=== PATIENT | female | born 1970 | race Caucasian/White ===

== ENCOUNTER 2020-02-17 14:13 | Emergency (ER) | payer OTHER, SELFPAY ==
--- NOTE | 2020-02-17 | CT_ITS ---
EXAMINATION: CT ABDOMEN AND PELVIS WITHOUT CONTRAST CLINICAL INFORMATION: Right flank pain COMPARISON: CT abdomen and pelvis noncontrast 05/20/2011 TECHNIQUE: Multidetector volumetric imaging was performed from the superior aspect of the liver through the pubic symphysis. No oral or intravenous contrast. Sagittal and coronal reformatted images were obtained on the technologist's workstation. This CT examination was performed using dose optimization techniques as appropriate, variously including the following: *Automated exposure control *Adjustment of mA and/or kV according to patient size (this includes techniques or standardized protocols for targeted exams where dose is matched to indication/reason for exam; i.e. extremities or head) *Use of iterative reconstruction technique DLP: 639 mGy-cm FINDINGS: LUNG BASES: The visualized lung bases are unremarkable. LIVER, GALLBLADDER, AND BILIARY TREE: The liver is normal in size, shape, and attenuation. No focal hepatic lesion or biliary ductal dilatation is present. The gallbladder is unremarkable with no evidence of radiopaque gallstones, gallbladder wall thickening, or obvious pericholecystic inflammatory changes. PANCREAS: Unremarkable. SPLEEN: Unremarkable. ADRENAL GLANDS: Unremarkable. KIDNEYS AND URETERS: Kidneys are normal in size and smooth in contour and normal in attenuation. There is no hydronephrosis, hydroureter, or perinephric stranding. No renal or definite ureteral calculi. There is a calcification deep right pelvis adjacent to the distal ureter representing a phlebolith. BLADDER: Unremarkable. GASTROINTESTINAL TRACT: There is no bowel obstruction or inflammatory changes in the bowel or mesentery. No ascites or fluid collection. The appendix is normal. There is moderate stool in the colon. Patient is likely status post prior gastric bypass. ABDOMINAL WALL: No significant hernia is appreciated. LYMPH NODES: No lymphadenopathy. VASCULAR: Unremarkable. PELVIC VISCERA: Unremarkable. OSSEOUS STRUCTURES: No acute bony abnormality. IMPRESSION: 1. No inflammatory changes in abdomen or pelvis. 2. No hydronephrosis, calculi, or perinephric stranding.
[2020-02-17 14:22] VITALS: BP 160/90; PULSE 82; RESP 16; TEMP 37.1; O2SAT 100; BMI 35.3
[2020-02-17 14:43] VITALS: BP 171/94; PULSE 81; TEMP 37; O2SAT 100
--- NOTE | 2020-02-17 15:25 | ED.GENADULT ---
HPI - General Adult General Chief complaint: General Medical Stated complaint: pain back Time Seen by Provider: 02/17/20 15:03 Source: patient Mode of arrival: ambulatory Limitations: no limitations History of Present Illness HPI narrative: patient's history of kidney stone last time she had 1 was 6 years ago no procedure was done been feeling 2 week of right flank pain increases with deep inspiration slight nausea no vomiting no radiation of pain last 3 days pain is getting worse patient denied any hematuria Onset (ago): week(s) (2) Radiation: non-radiation Severity: moderate Severity scale (1-10): 8 Quality: sharp Pain Consistency: intermittent Relieving factors: none Exacerbating factors: other ( deep breath) Associated symptoms: denies other symptoms Treatments prior to arrival: none Related Data Allergies Allergy/AdvReac Type Severity Reaction Status Date / Time Penicillins [PENICILLINS] Allergy Unknown HIVES Unverified 01/26/20 15:03 Penicillin Allergy Unknown Uncoded 12/27/19 00:00 Pt states no food allergies Allergy Unknown Uncoded 12/27/19 00:00 Review of Systems Review of Systems: REVIEW OF SYSTEMS: Pertinent positives and negatives are stated above in the history. GEN: no fevers, chills, fatigue HEENT: no nasal congestion, sore throat, ear pain NEURO: no headache, dizziness, focal weakness PULM: no cough, shortness of breath CV: no chest pain, palpitations, LE edema ABD no nausea, vomiting, diarrhea : no dysuria, urgency, frequency SKIN: no rash ROS otherwise negative x 10 PMFSH Past Medical History Medical History Hypertension Surgical History Gastric bypass status for obesity Social History Social History Smoking Status: Never smoker Use of substances other than those prescribed or required for medical reasons: No Advance Directives: No Advance Directives Information Provided: Yes Physical Exam Vital Signs and I&O and Narrative: Vital Signs and I&O: Vital Signs Temp 98.6 F 02/17/20 14:43 Pulse 81 02/17/20 14:43 Resp 16 02/17/20 14:22 BP 171/94 H 02/17/20 14:43 Pulse Ox 100 02/17/20 14:43 Intake & Output 02/16/20 02/17/20 02/17/20 18:59 06:59 18:59 Weight 79.379 kg Body Mass Index 35.3 Appearance: Alert. Oriented X3. moderate distress + Eyes: Pupils equal, round and reactive to light. ENT: Pharynx normal. Neck: Normal inspection. Neck supple. CVS: Normal heart rate and rhythm. Pulses normal. Respiratory: No respiratory distress. Breath sounds normal. Abdomen: Soft and nontender, right CVA tenderness+ Skin: Skin warm and dry. Normal skin color. Normal skin turgor. Extremities: No lower extremity edema. No lower extremity edema. Neuro: Oriented X 3. No motor deficit. No sensory deficit. Course Course Course Narrative: patient with right flank pain possible stone CT scan did not show any obstructive uropathy final report is pending patient signed out to Dr. Moore for evaluation and discharge Medical Decision Making Lab Data Result diagrams: 02/17/20 16:13 02/17/20 16:13
[2020-02-17] MEDS: ondansetron HCL 4 MG/2 ML VIAL IVPUSH (16:15)
[2020-02-17] MEDS: Ketorolac Tromethamine 30 MG/ML VIAL IVPUSH (16:15)
[2020-02-17] MEDS: 0.9 % Sodium Chloride 1,000 ML 999 ML IVCONT (16:16)
[2020-02-17] MEDS: Morphine Sulfate 4 MG/ML CARTRIDGE IVPUSH (16:16)
[2020-02-17 16:25] LABS: Basophils Absolute Auto 0.1 X10*3/uL (0.0-0.2); Basophils Percent Auto 0.7 % (0-2); Eosinophils Absolute Auto 0.1 X10*3/uL (0.0-0.4); Eosinophils Percent Auto 0.9 % (0-4); Hematocrit 42.3 % (37-47); Hemoglobin 14.1 g/dl (12.0-16.0); Imm Gran Abs Auto 0.01 X10*3/uL (0.00-0.03); Imm Gran Pct Auto 0.1 % (0.0-0.4); Lymphocytes Absolute Auto 1.7 X10*3/uL (1.2-4.9); Lymphocytes Percent Auto 22.8 % (20-40); MANUAL DIFF FLAG NO; Mean Corpuscular HGB Conc 33.3 g/dl (31.0-35.0); Mean Corpuscular Hemoglobin 31.8 pg (27.0-33.0); Mean Corpuscular Volume 95.3 fL (80-98); Mean Platelet Volume 10.3 fL (9.4-12.3); Monocytes Absolute Auto 0.7 X10*3/uL (0.1-1.2); Monocytes Percent Auto 9.3 % (2-11); Neutrophils Percent Auto 66.2 % (45-73); Platelet Count 200 X10*3/uL (160-400); Red Blood Count 4.44 X10*6/uL (4.20-5.50); Red Cell Distribution Width 12.3 % (11.0-16.0); White Blood Count 7.6 X10*3/uL (4.8-10.8)
--- NOTE | 2020-02-17 16:31 | PC.NURSE ---
PT TRIAGED C/O L SIDED FLANK PAIN X 4 DAYS. DENIES ANY URINARY SXS. HX KIDNEY STONES. PT DIFFICULT STICK, 22G PLACED IN L HAND. LABS DRAWN, URINE SPECIMEN OBTAINED AND SENT TO LAB.
--- NOTE | 2020-02-17 16:32 | PC.NURSE ---
AWAITING CT SCAN REPORT.
--- NOTE | 2020-02-17 16:32 | PC.NURSE ---
PT MEDICATED FOR 10/10 FLANK PAIN. A&OX3, SPEAKING IN CLEAR FULL SENTECES. AMBULATING INDEPENDENTLY.
[2020-02-17 16:43] LABS: Glucose Urine UA NEG (NEG); Leukocyte Esterase Urine NEG (NEG); Nitrite Urine NEG (NEG); Specific Gravity - Urine 1.015 (1.005-1.025); Urine Blood TRACE (NEG); Urine Ketones NEG (NEG); Urine Protein NEG (NEG-TRACE)
[2020-02-17 16:46] LABS: Appearance Urine CLEAR; Color Urine YELLOW
[2020-02-17 16:48] LABS: UPreg QC Valid YES; Urine Pregnancy NEGATIVE (NEGATIVE)
[2020-02-17 16:49] LABS: Anion Gap 11 (12-20); Blood Urea Nitrogen 14 mg/dL (9-16); Calcium 8.7 mg/dL (8.4-10.2); Carbon Dioxide 28 mmol/L (22-29); Chloride 103 mmol/L (96-108); Creatinine Clr Calc Pharmacy 97.2; Estimated Glomerular Filt Rate > 60; Glucose Random 96 mg/dL (60-115); Potassium 3.8 mmol/l (3.3-5.1); Sodium 138 mmol/L (135-145)
[2020-02-17 16:53] LABS: Squamous Epithelial Cell Urine TRACE /LPF; WBC Urine 0-2 /HPF (0-4)
== END 2020-02-17 17:34 | disposition home or self-care (01) ==
PROVIDERS: Emergency Provider Internal Medicine; PCP Internal Medicine
DX: M54.5 Low back pain (principal); R11.2 Nausea with vomiting, unspecified
CPT/HCPCS: 36415; 74176; 80048; 81001; 81025; 85025; 96361; 96374; 96375; 99284; J1885; J2270; J2405

== ENCOUNTER → 2020-03-21 12:09 | Outpatient (BNVA) | payer OTHER, SELFPAY | PROVIDERS: PCP Internal Medicine; Referring Provider Internal Medicine; Visit Provider Physician Assistant | DX: Z76.89 Persons encountering health services in other specified circumstances (principal) ==

== ENCOUNTER → 2020-06-20 08:28 | Outpatient (BNVA) | payer OTHER, SELFPAY | PROVIDERS: PCP Internal Medicine; Visit Provider Physician Assistant ==

== ENCOUNTER 2020-06-22 06:57 | Outpatient (REF) | payer OTHER, SELFPAY ==
[2020-06-22 07:39] LABS: MANUAL DIFF FLAG NO
[2020-06-22 07:43] LABS: Basophils Percent Auto 0.7 % (0-2); Eosinophils Absolute Auto 0.1 X10*3/uL (0.0-0.4); Eosinophils Percent Auto 0.8 % (0-4); Hematocrit 46.4 % (37-47); Hemoglobin 15.2 g/dl (12.0-16.0); Imm Gran Abs Auto 0.01 X10*3/uL (0.00-0.03); Imm Gran Pct Auto 0.2 % (0.0-0.4); Lymphocytes Absolute Auto 1.8 X10*3/uL (1.2-4.9); Lymphocytes Percent Auto 30.3 % (20-40); Mean Corpuscular HGB Conc 32.8 g/dl (31.0-35.0); Mean Corpuscular Hemoglobin 31.9 pg (27.0-33.0); Mean Corpuscular Volume 97.3 fL (80-98); Mean Platelet Volume 10.3 fL (9.4-12.3); Monocytes Absolute Auto 0.5 X10*3/uL (0.1-1.2); Monocytes Percent Auto 7.7 % (2-11); Neutrophils Absolute Auto 3.6 X10*3/uL (2.0-8.3); Neutrophils Percent Auto 60.3 % (45-73); Platelet Count 221 X10*3/uL (160-400); Red Blood Count 4.77 X10*6/uL (4.20-5.50); Red Cell Distribution Width 13.8 % (11.0-16.0)
[2020-06-22 07:48] LABS: Estimated Average Glucose 94 mg/dL; Hemoglobin A1c % 4.9 %
[2020-06-22 08:13] LABS: Alanine Aminotransferase 30 U/L (0-31); Albumin Level 4.2 g/dL (3.5-5.0); Alkaline Phosphatase 81 U/L (39-117); Anion Gap 14 (12-20); Aspartate Amino Transferase 39 U/L (5-31); Bilirubin Total 0.5 mg/dL (0.0-1.0); Blood Urea Nitrogen 24 mg/dL (9-16); C Reactive Protein 0.04 mg/dL (< or = 0.50); Calcium 9.1 mg/dL (8.4-10.2); Carbon Dioxide 31 mmol/L (22-29); Chloride 101 mmol/L (96-108); Cholesterol 150 mg/dL; Estimated Glomerular Filt Rate > 60; Glucose Random 85 mg/dL (60-115); HDL Cholesterol 68 mg/dL; LDL Cholesterol Calculated 76 mg/dl; Potassium 4.3 mmol/L (3.3-5.1); Sodium 142 mmol/L (135-145); Total Protein 7.4 g/dL (6.5-8.0); Triglycerides 34 mg/dL
[2020-06-22 08:32] LABS: Ferritin 49 ng/mL (10-250); TSH reflex Free T4 2.15 uIU/mL (0.32-4.0); Vitamin D 25-OH Total 18.3 ng/mL (>30)
[2020-06-22 08:52] LABS: Folate 11.5 ng/mL (> or = 4.0); Vitamin B12 837 pg/mL (200-900)
[2020-06-23 05:57] LABS: Insulin Level Total 8.7 uIU/mL
[2020-06-25 16:47] LABS: Calcium (PTHI) 9.2 mg/dL (8.6-10.4); PTHI 84 pg/mL (14-64)
[2020-06-26 03:47] LABS: Zinc 72 mcg/dL (60-130)
[2020-06-27 10:22] LABS: Vitamin B1 11 nmol/L (8-30)
[2020-06-27 21:06] LABS: Vitamin A 68 mcg/dL (38-98)
== END 2020-06-22 06:58 | disposition home or self-care (01) ==
LOC: HO.LAB 06:57
PROVIDERS: PCP Internal Medicine; Visit Provider Physician Assistant
DX: E66.9 Obesity, unspecified (principal); Z98.84 Bariatric surgery status
CPT/HCPCS: 36415; 80053; 80061; 82306; 82607; 82728; 82746; 83036; 83525; 83970; 84425; 84443; 84590; 84630; 85025; 86140

== ENCOUNTER → 2020-07-12 08:12 | Outpatient (BNVA) | payer OTHER, SELFPAY | PROVIDERS: PCP Internal Medicine; Visit Provider Dietitian, Registered ==

== ENCOUNTER 2020-11-07 09:43 | Outpatient (REF) | payer OTHER, SELFPAY ==
[2020-11-07 11:16] LABS: Vitamin D 25-OH Total 24.2 ng/mL (>30)
== END 2020-11-07 09:44 | disposition home or self-care (01) ==
LOC: HO.LAB 09:43
PROVIDERS: PCP Internal Medicine; Visit Provider Physician Assistant
DX: Z90.3 Acquired absence of stomach [part of] (principal)
CPT/HCPCS: 36415; 82306

== ENCOUNTER → 2021-02-04 14:55 | Outpatient (BNVA) | payer OTHER, SELFPAY | PROVIDERS: PCP Internal Medicine; Visit Provider Physician Assistant Surgical ==

== ENCOUNTER 2025-03-26 01:15 | Inpatient (IN) | payer BC, SELFPAY ==
[2025-03-26] VITALS (11 sets, daily range): BP systolic 107–144; BP diastolic 62–77; PULSE 78–97; RESP 14–21; TEMP 36.1–36.9; O2SAT 94–100; BMI 45.8; BMI 49.2
--- NOTE | ~2025-03-26 | CT_ITS ---
CLINICAL HISTORY: R flank pain ,hx kidney stones CT abdomen and pelvis without contrast Comparison: None provided Findings: The lung bases are clear. Distended gallbladder without radiopaque gallstone. Rest of the abdominopelvic viscera are unremarkable [id number] neighboring fat stranding. No hydronephrosis or urinary tract stone. Nonobstructive small bowel loops located to the left of the left colon. Finding is incidental. Distended fluid-filled appendix measuring up to 9 mm in width with a 10 mm mildly dense appendiceal base likely appendicolith and neighboring [id number] fat stranding. No extraluminal air or abscess. No acute fracture. Spinal degenerative changes. Multilevel ossification of the anterior longitudinal ligament and supraspinous ligaments at lower thoracic level. IMPRESSION: Uncomplicated appendicitis with a likely appendicolith. This document has been electronically signed by: Arminda Lemus MD on 03/26/2025 05:22:32
--- OUTSIDE RECORDS SUMMARY | 2025-03-26 02:10 | XMS_ITS | Clinical Summary ---
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 01/04/20 24 Active ergocalciferol (VITAMIN D-2) 1,250 mcg (50,000 unit) capsule Take 1 capsule (50,000 Units total) by mouth 1 (one) time per week. 12 capsule 3 06/27/19 25 Active albuterol HFA (PROAIR HFA ; PROVENTIL HFA ; VENTOLIN HFA) 90 mcg/actuation inhaler INHALE TWO PUFFS BY MOUTH EVERY 4 HOURS NEEDED FOR WHEEZING AND SHORTNESS OF BREATH (EMERGENCY USE ONLY). 1 each 12/15/19 25 Active hydroCHLOROthi azide (HYDRODIURIL) 50 mg tablet Take 1 tablet (50 mg total) by mouth 1 (one) time each day. 90 tablet 01/12/20 25 Active levothyroxine (SYNTHROID, LEVOTHROID) 50 mcg tablet Take 1 tablet (50 mcg total) by mouth 1 (one) time each day before breakfast. 90 tablet 02/10/20 25 Active pantoprazole (PROTONIX) 20 mg EC tablet TAKE ONE TABLET BY MOUTH EVERY MORNING 90 tablet 1 03/01/20 25 Active losartan (COZAAR) 25 mg tablet Take 1 tablet (25 mg total) by mouth at bedtime. 90 tablet 1 03/20/20 25 Active pantoprazole (PROTONIX) 20 mg EC tablet Take 1 tablet (20 mg total) by mouth 1 (one) time each day in the morning. 90 tablet 11/23/19 25 025 Discontinued losartan (COZAAR) 25 mg tablet Take 1 tablet (25 mg total) by mouth at bedtime. 90 tablet 12/20/19 25 025 Discontinued Active Problems Problem Noted Date Diagnosed Date Morbid obesity (CMS/[facility] V24, [facility] V28) 2023 Increased PTH level 07/15/2022 Overview (04/09/2024): Dr. 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 Overview (04/09/2024): Mild on xray 2012; s/p injections which help a lot Asthma 06/18/2012 Kidney stone on left side 12/22/2011 Female hirsutism 05/20/2007 Polycystic disease, ovaries 05/20/2007 Essential hypertension, benign 02/09/2006 BRCA negative History of gastric bypass Resolved Problems Problem Noted Date Diagnosed Date Resolved Date Vasomotor symptoms due to menopause 04/21/2023 06/22/2024 Encounters Date Type Department Care Team Description 01/16/2025 11:15 AM EDT Office Visit Adult Medicine [address] [address] Eloise Ceron PA Gastroesophageal reflux disease, unspecified whether esophagitis present (Primary Dx); Essential hypertension, benign; Osteopenia, unspecified location; Vitamin D deficiency; Morbid obesity ([facility] V24, [facility] V28); Hypothyroidism due to acquired atrophy of thyroid; History of gastric bypass; Gout, unspecified cause, unspecified chronicity, unspecified site; Mild intermittent asthma without complication from Last 3 Months Immunizations Immunization Administration Dates Next Due COVID-19 (Moderna/Spikevax) 12yo and older 02/25/2023 Influenza Quadravalent, MDCK , 0.5ml, preservative free (Flucelvax) 6mo and older 02/05/2023,02/25/2022,02/07/2021 Influenza trivalent, 0.5mL, preservative free (Fluarix; FluLaval; Fluzone) ages 6mo and older (Afluria) 3 years and older 02/03/2023,01/26/2021,02/08/2020,02/03,02/19/2018,02/11/2017,01/22/2016 ,03/16/2014 Influenza trivalent, with pr eservative (Fluzone; Afluria) 6mo and older 02/15/2015,01/30/2012,02/04/2011 Influenza, Unspecified 02/04/2019,01/22/2016 Pneumococcal conjugate 20 va lent (Prevnar 20, PCV 20) 2mo and older 04/10/2024 Pneumococcal polysaccharide 23 valent (Pneumovax 23) 2yo and older 01/23/2014 Td Tetanus diptheria (Tdvax) 7yo and older 07/31/2021 Tdap Tetanus diptheria acell ular pertussis (Boostrix; Adacel) 7yo and older 04/19/2010 Zoster recombinant (Shingrix ) 19yo and older 04/10/2024,02/05/2024 Surgical History Surgery Date Site/Laterality Comments LASER ABLATION OF THE CERVIX 1992 GASTRIC BYPASS 07/02/2017 Medical History Medical History Date Comments Essential hypertension, benign Polycystic disease, ovaries 05/20/2007 Kidney stone on left side 12/22/2011 Female hirsutism 05/20/2007 Cervical dysplasia 05/20/2007 Asthma 06/18/2012 BRCA negative Hypothyroidism 10/14/2017 History of gastric bypass 06/01/2020 History of COVID-19 07/18/2020 Gout 07/17/2021 Family History Medical History Relation Name Comments Other: unknown health Father Heart attack Maternal Grandmother HTN, ov slick cancer Breast cancer Mother dx'd 31 & 58& 58 second ayaan paola breast cancer at age 58; HTN, anxiety Colon cancer Neg Hx Relation Name Status Comments Father Maternal Grandmother Mother dx'd 31 & 58& 58 Alive Social History Tobacco Use Types Packs/Day Years Used Date Smoking Tobacco: Never Smokeless Tobacco: Never Tobacco Cessation:Counseling Given: Not Answered Alcohol Use Standard Drinks/Week Comments Yes 0 (1 standard drink = 0.6 oz pur e alcohol) Housing Instability Answer Date Recorde d Are you worried that in the next 2 months you may not have stable housing? No 06/20/2024 Food Access & Nutrition Answer Date Rec orded Do you have access to a vari ety of food including fruits and vegetables? Yes 06/20/2024 Access to Healthcare Answer Date Record ed Within the last 3 months, ho w many times did you visit the emergency department for your medical care? 0 06/20/2024 Health Literacy Answer Date Recorded How often do you need to hav e someone help you when you read instructions, pamphlets, or other written material from your doctor or pharmacy? Never 06/20/2024 Caregiver: How often do you need to have someone help you when you read instructions, pamphlets, or other written material from your doctor or pharmacy? Not on file 06/20/2024 Financial Risk Answer Date Recorded How hard is it for you to pa y for the very basics like food, housing, medical care, and air conditioning / heating? Patient declined 06/20/2024 Transportation Answer Date Recorded Has the lack of transportati on kept you from meetings, work, or from getting things needed for daily living? No Has the lack of transportati on kept you from medical appointments or from getting medications? No 06/20/2024 Social Isolation Answer Date Recorded How often do you feel lonely or isolated from th ose around you? Never 06/20/2024 Food Risk Answer Date Recorded Within the past 12 months we worried whether our food would run out before we got money to buy more. Never true 06/20/2024 Within the past 12 months th e food we bought just didn't last and we didn't have money to get more. Never true 06/20/2024 Dependent Care Answer Date Recorded Do you need help finding or paying for care for your loved ones. For example, children's institution attendant or elderly care for an older adult? No 06/20/2024 Education Answer Date Recorded Do you think completing more education or training, like finishing a GED, going to college, or learning a trade, would be helpful for you? N/A 06/20/2024 Employment and Income Answer Date Recor ded During the last four weeks, have you been actively looking for work? No 06/20/2024 Living Situation Answer Date Recorded What is your living situation? Unrecognized valu e 06/20/2024 Comments No Sex and Gender Information Value Date Recorded Sex Assigned at Not on file Legal Sex Female 2:33 PM EST Gender Identity Not on file Sexual Orientation Not on file Obstetrics History Para Term AB IAB SAB Ectopic Multiple Livin g Live Births 0 0 0 0 Last Filed Vital Signs Vital Sign Reading Time Taken Comments Blood Pressure 123/87 01/16/2025 11:12 AM EDT Pulse 72 01/16/2025 11:12 AM EDT Temperature 36.8 C (98.2 F) 01/16/2025 11:12 AM EDT Respiratory Rate 16 01/16/2025 11:12 AM EDT Oxygen Saturation - - Inhaled Oxygen Concentration - - Weight 97.1 kg (214 lb) 01/16/2025 11:12 AM EDT Height 149.9 cm (4' 11 ) 01/16/2025 11:12 AM EDT Body Mass Index 43.22 01/16/2025 11:12 AM EDT Plan of Treatment Upcoming Encounters Date Type Department Care Team (Late st Contact Info) Description 06/08/2025 9:40 AM EST Consult Gastroenterology - [address] [phone] Sil Kaur NP [address] [address] 07/18/2025 8:15 AM EDT Office Visit Adult Medicine [address] [phone] Gretel Rees MD [address] [place] [address] Health Maintenance Due Date Last Done Comments Hepatitis B Vaccines (1 of 3 - 19+ 3-dose series) 1988 RSV Immunization Adult Patients (1 - Risk 50-74 years 1-dose series) 2019 HIV Screening 04/19/2022 Cervical Cancer Screening: Pap Smear 06/21/2023 06/21/2020, 06/21/2020, 09/08/2017 COVID-19 Vaccine ( season) 2025 02/05/2024, 02/25/2023, 11/01/2021, Additional history exists Social Influencers of Health Screening 06/20/2025 06/20/2024 Hypertension/CHF/CAD Annual BMP Blood Test 02/27/2026 02/27/2025, 06/27/2024, 12/28/2023, Additional history exists Breast Cancer Screening 06/10/2026 06/10/19, 10/11/2022, 09/28/2021, Additional history exists Cholesterol Screening (Lipid Panel) 02/27/2030 02/27/2025, 12/28/2023, 12/28/2023 Colorectal Cancer Screening: Colonoscopy 08/06/2030 08/06/2020 DTaP,Tdap,and Td Vaccines (3 - Td or Tdap) 08/01/2031 07/31/2021, 04/19/2010 Hepatitis C Screening Completed 09/10/2022 Influenza Vaccine Discontinued 02/05/2023, , 02/25/2022, Additional history exists Pneumococcal Vaccine: 50+ Years Completed 04/10/2024, 01/23/2014 Zoster Vaccines Completed 04/10/2024, 02/05/2024 Depression Screening Completed 06/20/2024 HIB Vaccines Aged Out No longer eligi ble based on patient's age to complete this topic HPV Vaccines Aged Out No longer eligi ble based on patient's age to complete this topic Hepatitis A Vaccines Aged Out No long er eligible based on patient's age to complete this topic IPV Vaccines Aged Out No longer eligi ble based on patient's age to complete this topic MMR Vaccines Aged Out No longer eligi ble based on patient's age to complete this topic Meningococcal ACWY Vaccine Aged Out N o longer eligible based on patient's age to complete this topic Meningococcal B Vaccine Aged Out No l onger eligible based on patient's age to complete this topic RSV Immunization Patients Under 20 months Aged Out No longer eligible based on patient's age to complete this topic Varicella Vaccines Aged Out No longer eligible based on patient's age to complete this topic Procedures Procedure Name Priority Date/Time Associated Diagnosis Comments CBC WITH AUTO DIFFERENTIAL Routine 02/27/2025 9:02 AM EDT Bariatric surgery status Screening for diabetes mellitus Vitamin D deficiency disease Hypothyroidism Screening for lipoid disorders Routine general medical examination at a health care facility VITAMIN B12 Routine 02/27/2025 9:02 AM EDT Bariatric surgery status Screening for diabetes mellitus Vitamin D deficiency disease Hypothyroidism Screening for lipoid disorders Routine general medical examination at a health care facility HEMOGLOBIN A1C Routine 02/27/2025 9:02 AM EDT Bariatric surgery status Screening for diabetes mellitus Vitamin D deficiency disease Hypothyroidism Screening for lipoid disorders Routine general medical examination at a health care facility INSULIN, TOTAL Routine 02/27/2025 9:02 AM EDT Bariatric surgery status Screening for diabetes mellitus Vitamin D deficiency disease Hypothyroidism Screening for lipoid disorders Routine general medical examination at a health care facility VITAMIN D 25 HYDROXY Routine 02/27/2025 9:02 AM EDT Bariatric surgery status Screening for diabetes mellitus Vitamin D deficiency disease Hypothyroidism Screening for lipoid disorders Routine general medical examination at a health care facility THYROID STIMULATING HORMONE Routine 02/27/2025 9:02 AM EDT Bariatric surgery status Screening for diabetes mellitus Vitamin D deficiency disease Hypothyroidism Screening for lipoid disorders Routine general medical examination at a health care facility COMPREHENSIVE METABOLIC PANEL Routine 02/27/2025 9:02 AM EDT Bariatric surgery status Screening for diabetes mellitus Vitamin D deficiency disease Hypothyroidism Screening for lipoid disorders Routine general medical examination at a health care facility CBC AND DIFFERENTIAL Routine 02/27/2025 9:02 AM EDT Bariatric surgery status Screening for diabetes mellitus Vitamin D deficiency disease Hypothyroidism Screening for lipoid disorders Routine general medical examination at a health care facility LIPID PANEL WITH REFLEX TO DIRECT LDL Routine 02/27/2025 9:02 AM EDT Bariatric surgery status Screening for diabetes mellitus Vitamin D deficiency disease Hypothyroidism Screening for lipoid disorders Routine general medical examination at a health care facility MG MAMMO DIGITAL SCREENING W JOSE BILAT Routine 06/10/2024 4:05 PM EST Encounter for screening mammogram for breast cancer HEPATITIS C SCREENING Routine 09/10/2022 COLONOSCOPY Routine 08/06/2020 PAP SMEAR Routine 06/21/2020 from Last 3 Months or Most Recently Relevant to Health Maintenance Results * Lipid panel with reflex to direct LDL (02/27/2025 9:02 AM EDT) Cholesterol 167 0 - 200 mg/dL LAB CHEMISTRY METHOD 02/27/2025 11:08 AM [facility] Triglycerides 63 0 - 150 mg/dL LAB CHEMISTRY METHOD 02/27/2025 11:08 AM [facility] HDL 73 >=40 mg/dL LAB CHEMISTRY METHOD 02/27/2025 11:08 AM [facility] LDL Calculated 81 0 - 100 mg/dL LAB CHEMISTRY METHOD 02/27/2025 11:08 AM [facility] Comment:Estimated LDL Calcul ated using equation: Total cholesterol - HDL cholesterol - (Triglycerides/5) VLDL Cholesterol Chuy 12.6 mg/dL LAB CHEMISTRY METHOD 02/27/2025 11:08 AM [facility] Non HDL Chol. (LDL+VLDL) 94 <145 mg/dL LAB CHEMISTRY METHOD 02/27/2025 11:08 AM [facility] Chol/HDL Ratio 2.3 0.0 - 4.4 LAB CHEMISTRY METHOD 02/27/2025 11:08 AM EDT [facility] Blood Venous blood specimen / Unknown Venipuncture / Unknown 02/27/2025 9:02 AM EDT 02/27/2025 9:58 AM EDT us Aaliyah CHATMAN LAB BLOOD ORDERABLES Final Resul t [facility] [address] [place] [address], * (ABNORMAL) CBC auto differential (02/27/2025 9:02 AM EDT) WBC 10.0 4.8 - 10.8 K/mcL LAB HEMETOLOGY METHOD 02/27/2025 10:41 AM T [facility] RBC 4.60 3.80 - 4.80 M/mcL LAB HEMETOLOGY METHOD 02/27/2025 10:41 AM EDT [facility] Hemoglobin 13.9 11.5 - 16.0 g/dL LAB HEMETOLOGY METHOD 02/27/2025 10:41 AM T [facility] Hematocrit 42.3 35.0 - 47.0 % LAB HEMETOLOGY METHOD 02/27/2025 10:41 AM [facility] MCV 92.0 79.0 - 98.0 FL LAB HEMETOLOGY METHOD 02/27/2025 10:41 AM EDT [facility] MCH 30.2 27.0 - 32.0 pcg LAB HEMETOLOGY METHOD 02/27/2025 10:41 AM T [facility] MCHC 32.9 32.0 - 37.0 g/dL LAB HEMETOLOGY METHOD 02/27/2025 10:41 AM T [facility] RDW 14.0 11.0 - 15.0 % LAB HEMETOLOGY METHOD 02/27/2025 10:41 AM [facility] Platelets 283 130 - 400 K/mcL LAB HEMETOLOGY METHOD 02/27/2025 10:41 AM [facility] MPV 10.7 7.0 - 11.0 FL LAB HEMETOLOGY METHOD 02/27/2025 10:41 AM [facility] NRBC 0.0 <1.0 % LAB HEMETOLOGY METHOD 02/27/2025 10:41 AM [facility] NRBC Absolute 0.00 <0.10 K/mcL LAB HEMETOLOGY METHOD 02/27/2025 10:41 AM [facility] Neutrophils Relative 71.5 % LAB HEMETOLOGY METHOD 02/27/2025 10:41 AM [facility] Lymphocytes Relative 18.9 % LAB HEMETOLOGY METHOD 02/27/2025 10:41 AM [facility] Monocytes Relative 8.3 % LAB HEMETOLOGY METHOD 02/27/2025 10:41 AM [facility] Eosinophils Relative 0.5 % LAB HEMETOLOGY METHOD 02/27/2025 10:41 AM [facility] Basophils Relative 0.4 % LAB HEMETOLOGY METHOD 02/27/2025 10:41 AM [facility] Immature Granulocytes Relative 0.4 % LAB HEMETOLOGY METHOD 02/27/2025 10:41 AM [facility] Neutrophils Absolute 7.11(H) 1.50 - 7.00 K/mcL LAB HEMETOLOGY METHOD 02/27/2025 10:41 AM [facility] Lymphocytes Absolute 1.88 1.00 - 5.00 K/mcL LAB HEMETOLOGY METHOD 02/27/2025 10:41 AM [facility] Monocytes Absolute 0.83 0.20 - 1.00 K/mcL LAB HEMETOLOGY METHOD 02/27/2025 10:41 AM EDT [facility] Eosinophils Absolute 0.05 0.00 - 0.50 K/mcL LAB HEMETOLOGY METHOD 02/27/2025 10:41 AM EDT [facility] Basophils Absolute 0.04 0.00 - 0.20 K/[facility] LAB HEMETOLOGY METHOD 02/27/2025 10:41 AM EDT [facility] Immature Granulocytes Absolute 0.04(H) 0.00 - 0.03 K/[facility] LAB HEMETOLOGY METHOD 02/27/2025 10:41 AM EDT [facility] Blood Venous blood specimen / Unknown Venipuncture / Unknown 02/27/2025 9:02 AM EDT 02/27/2025 9:59 AM EDT [employer] LAB BLOOD ORDERABLES Final Resul t Performing Organization Address City/[facility]/ZIP Co de Phone Number [facility] [address] [place] [address], [place] [phone] * Insulin, total (02/27/2025 9:02 AM EDT) Insulin 17.2 3.0 - 25.0 mcIU/mL LAB CHEMISTRY METHOD 02/27/2025 9:02 PM EDT [facility] Blood Venous blood specimen / Unknown Venipuncture / Unknown 02/27/2025 9:02 AM EDT 02/27/2025 9:58 AM EDT Narrative [facility] - 02/27/2025 9:02 PM EDT Insulin reference range based on fasting status. Insulin values vary in non-fasting individuals. [employer] LAB BLOOD ORDERABLES Final Resul t Performing Organization Address City/[facility]/ZIP Co de Phone Number [facility] [address] [place] [address], [place] [phone] * Vitamin D 25 hydroxy (02/27/2025 9:02 AM EDT) Vit D, 25-Hydroxy 44.6 30.0 - 80.0 ng/mL LAB CHEMISTRY METHOD 02/27/2025 12:43 PM EDT [facility] Blood Venous blood specimen / Unknown Venipuncture / Unknown 02/27/2025 9:02 AM EDT 02/27/2025 9:58 AM EDT Aaliyah Narvaez [place] LAB BLOOD ORDERABLES Final Resul t [facility] [address] [place] [address], [place] [phone] * Thyroid stimulating hormone (02/27/2025 9:02 AM EDT) TSH 2.22 0.40 - 4.00 mcIU/mL LAB CHEMISTRY METHOD 02/27/2025 9:02 PM EDT [facility] Blood Venous blood specimen / Unknown Venipuncture / Unknown 02/27/2025 9:02 AM EDT 02/27/2025 9:58 AM EDT Aaliyah CHATMAN LAB BLOOD ORDERABLES Final Resul t [facility] [address] [place] [address], [place] [phone] * Hemoglobin A1c (02/27/2025 9:02 AM EDT) Hemoglobin A1C 5.4 <6.5 % LAB CHEMISTRY METHOD 02/27/2025 11:53 AM EDT [facility] Mean Bld Glu Estim. 108 mg/dL LAB CHEMISTRY METHOD 02/27/2025 11:53 AM EDT [facility] Blood Venous blood specimen / Unknown Venipuncture / Unknown 02/27/2025 9:02 AM EDT 02/27/2025 9:59 AM EDT us Aaliyah CHATMAN LAB BLOOD ORDERABLES Final Resul t Performing Organization Address City/[facility]/ZIP Co de Phone Number [facility] [address] [place] [address], [place] [phone] * Vitamin B12 (02/27/2025 9:02 AM EDT) [facility] Vitamin B-12 469 250 - 900 pcg/mL LAB CHEMISTRY METHOD 02/27/2025 11:08 AM EDT [facility] Blood Venous blood specimen / Unknown Venipuncture / Unknown 02/27/2025 9:02 AM EDT 02/27/2025 9:58 AM EDT us Aaliyah CHATMAN LAB BLOOD ORDERABLES Final Resul t Performing Organization Address City/[facility]/ZIP Co de Phone Number [facility] [address] [place] [address], [place] [phone] * Comprehensive metabolic panel (02/27/2025 9:02 AM EDT) [facility] Sodium 136 133 - 145 mmol/L LAB CHEMISTRY METHOD 02/27/2025 11:08 AM T [facility] Potassium 3.7 3.5 - 5.5 mmol/L LAB CHEMISTRY METHOD 02/27/2025 11:08 AM T [facility] Chloride 99 96 - 110 mmol/L LAB CHEMISTRY METHOD 02/27/2025 11:08 AM [facility] CO2 30 21 - 32 mmol/L LAB CHEMISTRY METHOD 02/27/2025 11:08 AM T [facility] Anion Gap 7 3 - 11 LAB CHEMISTRY METHOD 02/27/2025 11:08 AM [facility] Glucose 84 70 - 100 mg/dL LAB CHEMISTRY METHOD 02/27/2025 11:08 AM [facility] BUN 17 5 - 25 mg/dL LAB CHEMISTRY METHOD 02/27/2025 11:08 AM [facility] Creatinine 0.68 0.50 - 1.10 mg/dL LAB CHEMISTRY METHOD 02/27/2025 11:08 AM [facility] eGFR 103 >=60 mL/min/1. 73m2 LAB CHEMISTRY METHOD 02/27/2025 11:08 AM [facility] Comment:Calculation based on the Chronic Kidney Disease Epidemiology Collaboration (CKD-EPI) equation refit without adjustment for race. BUN/Creatinine Ratio 25.0 LAB CHEMISTRY METHOD 02/27/2025 11:08 AM [facility] Calcium 9.3 8.5 - 10.5 mg/dL LAB CHEMISTRY METHOD 02/27/2025 11:08 AM [facility] AST (SGOT) 42 10 - 42 unit/L LAB CHEMISTRY METHOD 02/27/2025 11:08 AM [facility] ALT (SGPT) 45 10 - 60 unit/L LAB CHEMISTRY METHOD 02/27/2025 11:08 AM [facility] Alkaline Phosphatase 107 42 - 121 unit/L LAB CHEMISTRY METHOD 02/27/2025 11:08 AM [facility] Total Protein 7.2 6.0 - 8.0 g/dL LAB CHEMISTRY METHOD 02/27/2025 11:08 AM [facility] Albumin 3.7 3.2 - 5.0 g/dL LAB CHEMISTRY METHOD 02/27/2025 11:08 AM [facility] Total Bilirubin 0.3 0.0 - 1.4 mg/dL LAB CHEMISTRY METHOD 02/27/2025 11:08 AM [facility] Blood Venous blood specimen / Unknown Venipuncture / Unknown 02/27/2025 9:02 AM EDT 02/27/2025 9:58 AM EDT us Aaliyah CHATMAN LAB BLOOD ORDERABLES Final Resul t [facility] ([facility]) [facility] [address] [place] [address], * MG Mammo Digital Screening w Jose bilat (06/10/2024 4:05 PM EST) Anatomical Region Laterality Modality Breast Bilateral Mammography 06/11/2024 3:13 PM EST Impressions 06/11/2024 3:15 PM EST No mammographic evidence for malignancy. BI-RADS CATEGORY: 1 - NEGATIVE RECOMMENDATION: Screening bilateral mammogram is recommended in 1 year. Mammo Location: [facility], [address] [place] [address], [id number], . -------- FINAL REPORT -------- Dictated By: Alison Tidwell Dictated Date: 06/11/2024 15:13 ET Assigned Physician: Alison Tidwell Reviewed and Electronically Signed By: Alison Tidwell Signed Date: 06/11/2024 15:15 ET Workstation ID: [id number] Transcribed By: Self Edit Transcribed Date: 06/11/2024 15:13 ET Narrative 06/11/2024 3:15 PM EST Bilateral screening mammogram. CLINICAL: 54 years old, Female, routine annual exam. COMPARISON: Prior mammograms, latest from 10/11/2022. TECHNIQUE: Bilateral MLO and CC views were obtained digitally with 3-D mammogram (digital breast tomosynthesis). Computer-aided detection was utilized in evaluation of this exam (CAD). FINDINGS: There is no evidence of suspicious mass or architectural distortion. No worrisome calcifications are evident. There has been no significant change from prior exam(s). BREAST DENSITY: B - There are scattered areas of fibroglandular density. Procedure Note Alison Tidwell MD - 06/11/2024 Bilateral screening mammogram. CLINICAL: 54 years old, Female, routine annual exam. COMPARISON: Prior mammograms, latest from 10/11/2022. TECHNIQUE: Bilateral MLO and CC views were obtained digitally with 3-Dmammogram (digital breast tomosynthesis). Computer-aided detection wasutilized in evaluation of this exam (CAD). FINDINGS: There is no evidence of suspicious mass or architectural distortion. Noworrisome calcifications are evident. There has been no significantchange from prior exam(s). BREAST DENSITY: B - There are scattered areas of fibroglandular density. IMPRESSION: No mammographic evidence for malignancy. BI-RADS CATEGORY: 1 - NEGATIVE RECOMMENDATION: Screening bilateral mammogram is recommended in 1 year. Mammo Location: [facility], [address] [place] [address], [id number], . -------- FINAL REPORT -------- Dictated By: Alison Tidwell Dictated Date: 06/11/2024 15:13 ET Assigned Physician: Alison Tidwell Reviewed and Electronically Signed By: Alison Tidwell Signed Date: 06/11/2024 15:15 ET Workstation ID: [id number] Transcribed By: Self Edit Transcribed Date: 06/11/2024 15:13 ET Gretel Rees MD IMG BI PROCEDURES Final Result * Hepatitis C Screening (09/10/2022) Hepatitis C Screening Abstracted [facility] Provider HEALTH MAINTENANCE Final Result * Colonoscopy (08/06/2020) Colonoscopy Abstracted. No Interpretation Anatomical Region Laterality Modality Other Historical Provider MD HEALTH MAINTENANCE Final Result * Pap smear (06/21/2020) 06/21/2020 Narrative HISTORICAL TESTING LAB RESULTING AGENCY - 06/27/2020 3:20 PM EST [id number] THINPREP PAP, IMAGED: NEGATIVE FOR SQUAMOUS INTRAEPITHELIAL LESION AND MALIGNANCY . CLUE CELLS ARE PRESENT. ABUNDANT PARTIALLY OBSCURING ACUTE INFLAMMATORY CELLS ARE PRESENT. TATYANA CUNNINGHAM , CT(ASCP) (CASE ELECTRONICALLY SIGNED 06 27 2020) ADEQUACY: SATISFACTORY ENDOCERVICAL/TRANSFORMATION ZONE COMPONENT ABSENT. SOURCE: THINPREP PAP HPV IF ASCUS, CERVICAL, IMAGED CLINICAL INFORMATION: HPV IF DIAGNOSIS OF ASCUS. MENOPAUSE. PAP HX NEG. NO LMP RECORDED, PT IS NOT CURRENTLY HAVING PERIODS (REASON: PERIMENOPAUSAL-UNCERTAIN DATE). 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
--- OUTSIDE RECORDS SUMMARY | 2025-03-26 02:10 | XMS_ITS | Data Portability ---
Author Organization [facility] [address] Address [address] [place] [address] Assessment No assessment recorded. Plan of Treatment Reminders Order Date Submit Date Provider Last Modified By Organization Details Last Modified Time Details Appointments None recorded. Lab rapid strep group A, throat 2022 023 [email or web address] [facility], [address] [place] [address], [phone], 11:09:14 Referral None recorded. Procedures None recorded. Surgeries None recorded. Imaging None recorded. Medication Orders fluticasone propionate 50 mcg/actuati on nasal spray,suspe nsion 2022 023 [facility], [address] [place], [address], 3 11:09:16 Zithromax Z-[place] 250 mg tablet 2022 023 [facility], [address] [place], [address], 3 11:09:16 Patient TargetsNo targets recorded. Patient Instructions Encounter Date Encounter Id Patient Instructions Last Modified By Organization Details Last Modified Time 08/29/2022 [id number] ear infection (otitis media): care instructions [email or web address] Not available 08/29/2022 11:09:26 Reason for Referral None Reported. Results Created Date Observation Date Name Description Value Unit Range Abnormal Flag Note LastModifiedBy Organization Detail LastModifiedTime 08/30/1908/29/2022 rapid strep group A, throa t Unknown Analyte Normal = Negati ve Not Available [address] [place], [address], 08/29/2022 10:44:22 08/30/19 23 08/29/2022 rapid strep group A, throa t Unknown Analyte negati ve Not Available [address] [place], [address], 08/29/2022 10:44:22 Result Notes None recorded. Problems Name Problem SNOMED Code Status Onset Date Resolution Date Notes Provider Name and Address Organization Details Recorded Time Asthma 382349506 Active 2022 TEDDY WOLFF null, PA - [facility] 10:42:21 Hypertensive disorder 24915519 Active 2022 TEDDY WOLFF null, PA - [facility] 10:42:27 Hypothyroidism 66569358 Active 2022 TEDDY WOLFF null, PA - [facility] 10:42:37 Gastroesophage al reflux disease 210234749 Active 2022 TEDDY WOLFF null, PA - [facility] 10:42:45 Problem Notes None recorded. Procedures Surgical History Date Name Laterality Status Provider Name and Address Organization Details Recorded Time procedure on cervix completed TEDDYKENNY CEDILLOEY PA - [facility] 08/29/2022 10:43:19 Gastric bypass for obesity completed TEDDY WOLFF PA - [facility] 08/29/2022 10:43:27 Imaging Results None recorded. Procedure Notes None recorded. Medical Equipment None Reported. Allergies Allergen ID Allergen Name Allergen Category Reaction Reaction Severity Criticality Documentation Date Start Date Code Code System Note Provider Name and Address Organization Details Recorded Time 680731 Product containin g penicilli n (product) medicatio n hives Not available Not available 08/29/2022 34159 8001 SNOMED TEDDY WOLFF null, PA - [facility] 10:41:06 Medications Name Sig Start Date Stop Date Status Note LastModified by Organization Details LastModified Time tizanidine 2 mg tablet TAKE ONE TABLET BY MOUTH EVERY 6 HOURS NEEDED 08/29 completed Not Available Not Available Not Available clindamycin HCl 300 mg capsule TAKE ONE CAPSULE BY MOUTH TWICE A DAY FOR 7 DAYS 08/29 completed Not Available Not Available Not Available hydrochloro thiazide 50 mg tablet TAKE 1 TABLET BY MOUTH DAILY. active Not Available Not Available No t Available Zithromax Z-[place] 250 mg tablet TAKE 2 TABLETS (500 MG) BY ORAL ROUTE ONCE DAILY FOR 1 DAY THEN 1 TABLET (250 MG) BY ORAL ROUTE ONCE DAILY FOR 4 DAYS 2022 active Not Available Not Available Not Avai lable pantoprazol e 20 mg tablet,luis yed release TAKE ONE TABLET BY MOUTH EVERY MORNING active Not Available Not Available No t Available levothyroxi ne 50 mcg tablet TAKE ONE TABLET BY MOUTH EVERY MORNING BEFORE BREAKFAST ) active Not Available Not Available No t Available pantoprazol e 40 mg tablet,luis yed release TAKE ONE TABLET BY MOUTH EVERY DAY 08/29 completed Not Available Not Available Not Available losartan 25 mg tablet TAKE ONE TABLET BY MOUTH EVERY DAY active Not Available Not Available No t Available ibuprofen 600 mg tablet TAKE ONE TABLET BY MOUTH EVERY 6 HOURS NEEDED FOR PAIN active Not Available Not Available No t Available albuterol sulfate HFA 90 mcg/actuati on aerosol inhaler INHALE TWO PUFFS BY MOUTH EVERY 4 HOURS NEEDED FOR WHEEZING OR SHORTNESS OF BREATH EMERGENCY USE ONLY). active Not Available Not Available No t Available Vitamin D2 1,250 mcg (50,000 unit) capsule TAKE ONE CAPSULE BY MOUTH ONCE A WEEK. active Not Available Not Available No t Available colchicine 0.6 mg tablet TAKE ONE TABLET BY MOUTH TWICE A DAY 08/29 completed Not Available Not Available Not Available fluticasone propionate 50 mcg/actuati on nasal spray,suspe nsion Idanha 1 spray every day by intranasa l route. 2022 active Not Available Not Available Not Avai lable chlorhexidi ne gluconate 0.12 % mouthwash RINSE MOUTH WITH 15ML (1 CAPFUL) FOR 30 SECONDS IN THE IN THE MORNING AND IN THE EVENING AFTER TOOTHBRUS FLOWER. EXPECTORA TE AFTER RINSING. DO 08/29 completed Not Available Not Available Not Available Vitamin B12 active Not Available Not A vailable Not Available Vitals Date Recorded Body height Body mass index (BMI) Body weight Pain severity - 0-10 verbal numeric rating [Score] - Reported Respiratory rate Oxygen saturation Oxygen saturation in Arterial blood by Pulse oximetry Heart rate Body temperature Systolic And Diastolic Provider Name and Address Organization Details Last Updated DateTime 149.86 cm 41.8 kg/m2 95975.6 2 g 6 18 /min 100 % 100 % 70 /min 98.1 [degF] 114/78 mm[Hg] TEDDY WOLFF PA - [facility] 10:45:07 Social History Question Answer Notes LastModified by Poup Details LastModified Time Tobacco Smoking Status Former Smoker TEDDY hilton PA - [facility] 08/29/2022 10:44:17 When Did You Quit Smoking? 16+yearssinc elastcigaret te Information not available 08/29/2022 Have You Recently Traveled Abroad? No Information not available 08/29/2022 Sex: Unknown Functional Status Question Answer Note LastModified by Poup Details LastModified Time Do you use any illicit or recreational drugs? No Information not available 08/29/2022 Do you or have you ever used any other forms of tobacco or nicotine? No [email or web address] Information not available 08/29/2022 What is your level of alcohol consumption? Occasional [email or web address] Information not available 08/29/2022 Mental Status None recorded. Family History Relationship Description Onset Age of this Age Resolved Age Notes LastModified by Organization Details LastModified Time Father No current problems or disability [email or web address] Not available 08/29 10:43:46 Mother No current problems or disability [email or web address] Not available 08/29 10:43:46 Medical History No medical history recorded. Gynecological HistoryNo gynecological history recorded. Obstetrics History GPAL:G 0 P 0 0 0 0 Past Encounters Encounter ID Performer Location Encounter Start Date Encounter Closed Date Diagnosis/Indication Diagnosis SNOMED-CT Code Diagnosis ICD10 Code Diagnosis IMO Codes Diagnosis Note [id number] [facility] [place] [address] 07/27/2020 08:40:26 07/27/2020 09:31:06 [id number] [place] [address] [place] [address] 08/29/2022 09:29:49 08/29/2022 11:17:47 Acute left otitis media 469847413 H66.92 Given Hx and Sx and PE findings will Rx Antibiotic s and nasal spray Take antibiotic with food. Eat a yogurt daily or take a probiotic while taking the antibiotic . Recommend humidified airrest, fluidstyle nol/ibu prnNo swimming x 1 week Patient advised to follow up as needed for worsening symptoms or no improvemen t. Discussed concerning red flags with patient and reasons to follow up in the Emergency Department urgently. Health Concerns Section Related Observation LastModified by Organization Detai ls LastModified Time None Recorded Concern Status LastModified by Organization Details LastModified Time None Recorded Advance Directives Directive None Recorded Payers Insurance Date Sequence Insurance Name Policy Number Policy Duong Covered Member ID Duong Member ID Guarantor Name 08/29/[address] [place] [address] [id number] Soniya Nevarez [id number] Soniya Nevarez Notes Date Note Type Note Provider Name and Address Organization Details Recorded Time 08/29/2022 text/html ROS as noted in the HPI 52 yo female c/o Sore throat, left tonsil pain, left ear pain started yesterday No feverNo chillsNo coughNo difficulty breathing or respiratory distressNo wheezeNo CPNo congestionNo Abdominal painNo nauseaNo vomitingNp diarrheaNo myalgiaNo fatigueNo rashNo HANo dizzinessNo recent travelNo known sick contacts Steve Portillo DO [address] [place], [address], [place] - [facility] 08/29/2022 11:09:43 OBGyn Episode No OBEpisode recorded.
--- OUTSIDE RECORDS SUMMARY | 2025-03-26 02:10 | XMS_ITS | Patient Health Record ---
Author Organization [facility] [address] Address [address] [place] [address] Care Team Providers Care Fruit Trimmer Name Role Phone Juan MiguelTasneem wagner Primary Care Provider [phone] Aaliyah Narvaez Unavailable [phone] Allergies Allergen (clinical drug ingredient) Drug/Non Drug Allergy documented on EMR Reaction Allergy Type Onset Date Status Penicillin hives Drug Allergy Active Results Component Value Reference Range Flag Notes VITAMIN D 25 HYDROXY Reviewed date:02/27/2025 12:54:14 PM Interpretation: Performing Lab: Notes/Report: Vit D, 25-Hydroxy 44.6 30.0-80.0 ng/mL HEMOGLOBIN A1C Reviewed date:02/27/2025 12:43:00 PM Interpretation: Performing Lab: Notes/Report: Hemoglobin A1C 5.4 <6.5 % Mean Bld Glu Estim. 108 LIPID PANEL WITH REFLEX TO D IRECT LDL Reviewed date:02/27/2025 12:44:49 PM Interpretation: Performing Lab: Notes/Report: Cholesterol 167 0-200 mg/dL Triglycerides 63 0-150 mg/dL HDL 73 >=40 mg/dL LDL Calculated 81 0-100 mg/dL Estimated LDL Calculated using equation: Total cholesterol - HDL cholesterol - (Triglycerides/5) VLDL Cholesterol Chuy 12.6 Non HDL Chol. (LDL+VLDL) 94 <145 mg/dL Chol/HDL Ratio 2.3 0.0-4.4 COMPREHENSIVE METABOLIC PANE L Reviewed date:02/27/2025 12:45:35 PM Interpretation: Performing Lab: Notes/Report: Sodium 136 133-145 mmol/L Potassium 3.7 3.5-5.5 mmol/L Chloride 99 96-110 mmol/L CO2 30 21-32 mmol/L Anion Gap 7 3-11 Glucose 84 70-100 mg/dL BUN 17 5-25 mg/dL Creatinine 0.68 0.50-1.10 mg/dL eGFR 103 >=60 mL/min/1.73m2 Calcul ation based on the Chronic Kidney Disease Epidemiology Collaboration (CKD-EPI) equation refit without adjustment for race. BUN/Creatinine Ratio 25.0 Calcium 9.3 8.5-10.5 mg/dL AST (SGOT) 42 10-42 unit/L ALT (SGPT) 45 10-60 unit/L Alkaline Phosphatase 107 42-121 unit/L Total Protein 7.2 6.0-8.0 g/dL Albumin 3.7 3.2-5.0 g/dL Total Bilirubin 0.3 0.0-1.4 mg/dL VITAMIN B12 Reviewed date:02/27/2025 12:45:06 PM Interpretation: Performing Lab: Notes/Report: Vitamin B-12 469 250-900 pcg/mL THYROID STIMULATING HORMONE Reviewed date:02/28/2025 07:59:40 AM Interpretation: Performing Lab: Notes/Report: TSH 2.22 0.40-4.00 mcIU/mL INSULIN, TOTAL Reviewed date:02/28/2025 07:59:49 AM Interpretation: Performing Lab: Notes/Report: Insulin reference range based on fasting status. ?Insulin values vary in non- fasting individuals. Insulin 17.2 3.0-25.0 mcIU/mL CBC WITH AUTO DIFFERENTIAL Reviewed date:02/27/2025 12:46:51 PM Interpretation: Performing Lab: Notes/Report: WBC 10.0 4.8-10.8 K/mcL RBC 4.60 3.80-4.80 M/mcL Hemoglobin 13.9 11.5-16.0 g/dL Hematocrit 42.3 35.0-47.0 % MCV 92.0 79.0-98.0 FL MCH 30.2 27.0-32.0 pcg MCHC 32.9 32.0-37.0 g/dL RDW 14.0 11.0-15.0 % Platelets 283 130-400 K/mcL MPV 10.7 7.0-11.0 FL NRBC 0.0 <1.0 % NRBC Absolute 0.00 <0.10 K/mcL Neutrophils Relative 71.5 Lymphocytes Relative 18.9 Monocytes Relative 8.3 Eosinophils Relative 0.5 Basophils Relative 0.4 Immature Granulocytes Relative 0.4 Neutrophils Absolute 7.11 1.50-7.00 K/mcL H Lymphocytes Absolute 1.88 1.00-5.00 K/mcL Monocytes Absolute 0.83 0.20-1.00 K/mcL Eosinophils Absolute 0.05 0.00-0.50 K/mcL Basophils Absolute 0.04 0.00-0.20 K/mcL Immature Granulocytes Absolute 0.04 0.00-0.03 K/mcL H Reason For Referral No Information Medications Medication SIG (Take, Route, Frequency, Duration) Notes Start Date End Date Status Zepbound 2.5 MG/0.5ML Soluti on Auto-injector 0.5 ML Subcutaneous once weekly; Duration: 30 days 02/27/2025 Active Vitamin D (Ergocalciferol) 1.25 MG (26979 UT) Capsule Oral; Duration: 56 Days Active Losartan Potassium 25 MG Tablet TAKE ONE TABLET BY MOUTH DAILY AT BEDTIME Oral; Duration: 30 Days Active Pantoprazole Sodium 20 MG Tablet Delayed Release TAKE ONE TABLET BY MOUTH EVERY MORNING Oral; Duration: 90 Days Active Albuterol Sulfate HFA 108 (9 0 Base) MCG/ACT Aerosol Solution INHALE TWO PUFFS BY MOUTH EVERY 4 HOURS NEEDED FOR WHEEZING OR FOR SHORTNESS OF BREATH Inhalation; Duration: 16 Days Active Levothyroxine Sodium 50 MCG Tablet TAKE ONE TABLET BY MOUTH EVERY DAY BEFORE BREAKFAST Oral; Duration: 30 Days Active hydroCHLOROthiazide 50 MG Tablet TAKE ONE TABLET BY MOUTH EVERY DAY Oral; Duration: 60 Days Active Social History Social History Drug/Alcohol: Social Info Question Answer Notes AUDIT-C (Standard) Did you have a drink containing alcohol in the past year? Yes How often did you have a drink containing alcohol in the past year? Monthly or less (1 point) How many drinks did you have on a typical day when you were drinking in the past year? 1 or 2 drinks (0 point) How often did you have six or more drinks on one occasion in the past year? Never (0 point) Points 1 Interpretation Negative Tobacco Use: Social Info Question Answer Notes Tobacco use other than smoking: Are you an other tobac co user? No Problems Problem Type SNOMED Code ICD Code Onset Dates Problem Status W/U Status Risk Notes Problem Morbid obesity (034427636) Morbid obesity (E66.01) Active confirmed Problem Vitamin D deficiency (47300625) Vitamin D deficiency (E55.9) Active confirmed Problem Body mass index 40+ - morbidly obese (582009928) BMI 40.0-44.9, adult (Z68.41) Active confirmed Problem Hypothyroidism (90924489) Hypothyroidism (acquired) (E03.9) Active confirmed Problem Asthma (066118874) Asthma (J45.909) Active conf irmed Problem History of gastric bypass (270485717) History of gastric bypass (Z98.84) Active confirmed Problem Gastroesophageal reflux disease (164363075) GERD (gastroesophageal reflux disease) (K21.9) Active confirmed Problem Depression (312250581) Depression (F32.A) Active confirmed Problem Obesity (083746226) Obesity (E66.9) Active conf irmed Problem Hypertension (45232246) Hypertension (I10) Active confirmed Vital Signs Heart Rate 74 /min 02/27/2025 Respiratory Rate 16 /min 02/27/2025 Oximetry 97 % 02/27/2025 Blood pressure diastolic 84 mm Hg 02/27/2025 Height 58 in 02/27/2025 Blood pressure systolic 132 mm Hg 02/27/2025 Weight 211 lbs 02/27/2025 BMI 44.09 kg/m2 02/27/2025 Encounters Encounter Location Date Provider Diagnosis [facility] [phone] [address] 02/27/2025 Aaliyah Narvaez Morbid obesity E66.0 1 ; BMI 40.0-44.9, adult Z68.41 ; Hypertension I10 ; GERD (gastroesophageal reflux disease) K21.9 ; Asthma J45.909 ; Depression F32.A ; Encounter for nutritional counseling Z71.3 ; History of gastric bypass Z98.84 ; Hypothyroidism (acquired) E03.9 and Vitamin D deficiency E55.9 [facility] [phone] 02/27/2025 Aaliyah Svrcek [facility] [address] 02/28/2025 Tasneem Normoyle Assessments Encounter Date Diagnosis (ICD Code) Assessment Notes Treatment Notes Treatment Clinical Notes Section Notes 02/27/2025 Morbid obesity (ICD-10 - E66.01) #Morbid obesity. 211.1 pounds, BMI 44.1. New patient welcome to the practice today. Seca scale results reviewed in detail with patient. Discussed medical weight loss options in detail. She is most interested in Zepbound or Wegovy. Will submit for Zepbound and follow-up pending PA determination. Reviewed risk benefits adverse effects of medication in detail with patient. Demonstrated proper use of pen autoinjector here in office. Discussed importance of lifestyle modifications including higher protein diet with a goal of 80 g of protein a day, increased exercise and hydration. Will get comprehensive labs and review at follow-up visit in 1 month. Discussed importance of daily probiotic and vitamin supplementation. Follow-up in 1 month sooner with any concerns. #HTN. Follows with primary care. Has been well-controlled on current regimen. Mildly elevated in the office today. #GERD. Currently on PPI daily. #Asthma. Has been well-controlled. #Hypothyroidism. Discussed importance of monitoring thyroid function test while on GLP-1's. Patient meets criteria for Zepbound/Wegovy due to the following criteria: Patient is over the age of [age] years old. Patients BMI is > 30 at 44.1. Comorbidities include: Hypertension. These medications are being prescribed under the supervision of an obesity medicine certified physician, Dr. Ping Ramirez. Weight Consult Plan: Patient has been found to be obese with a BMI of 44.1. Patient has class 3 obesity. Patient was reassured and welcomed to the practice. We discussed that we stress a hollistic medical approach with emphasis on lifestyle modification. Patient was informed that a healthy lifestyle with exercise and good eating habits can help reduce his risk of medical complications. He is explained that obesity increases his risk of diabetes, cardiovascular disease, or organ damage. We spent a lot of time discussing the relationship between food, exercise, sleep, mental health and obesity. Patient was counseled on the importance EATING local, organic food when possible. Patient was educated on clean 15 and dirty dozen. I provided information about reading books called The Food Rules by Emmanuel Feliciano and Eat Fat Get Lean by Dr Navneet Mahoney. Self education is important in the journey for weight management. Patient was offered diagnostic testing. We want to measure visceral adiposity, advanced body composition, adverse lipids, fatty acid balance, risk for heart disease and atherosclerosis, markers of inflammation and genetic susceptibility. Patient was counseled on weight management and was advised to lose weight using B. Lifestyle management which includes several strategies as below 1. Eat a low carbohydrate good fat good protein diet. Eliminate refined carbohydrates from the diet. Continue blood sugar and sugared beverages. Eat local organic when possible. Cook your own meals. Read food labels. None about healthy snacks. Portion control and food with low glycemic index 2. Exercise regularly. Try to get at least 6000 steps a day. Use a predominant to track activity level. Consider using apps like Fear Hunters, NONOpal, lose it, stick as needed for self-monitoring and weight management. Consider group exercises. Consider hiring a personal injury litigation paralegal. Regular exercise is short to sustainable health and prevents as a buffer against weight regain 3. Sleep is most important for healing. Tried to sleep at least 8 hours a night. A good quality sleep needs a sleep ritual with ideal room temperature of around 68. It might help to take a shower and have no electronics in the room and sleep in a very dark room without artificial light. Start her sleep routine and get up early in the morning and go to bed on time 4. Make a social connection. Surround yourself with positive people with positive energy. Connect with friends and family. 5. Get into the habit of meditating and mindfulness while doing everything. 6. Go outside and connect with nature. C. Prescription medications Patient was educated on the use of prescription medications for medical weight loss. This is a growing list and includes phentermine, Topamax,Qsymia, contrave, belviq and saxenda. All prescription medications could have side effects including but not limited to kidney stones, seizure disorder cardiac arrhythmias heart attack pancreatitis etc. etc.. Patient was encouraged to read the prescription insert and have coaching with their pharmacist and make an informed decision about taking medication and know that these medications are being prescribed with good intentions and we do not know how a patient would react to her medication. Sudden medications are FDA approved for weight loss and there is also off label use depending on patient's inability to afford medications in an attempt to lose weight D. Behavioral counseling was done to establish a relationship between food and an mood. Patient was provided information about local counseling and psychiatry and Dr Taylor at [facility]. We would like to cover regular topics and build on low glycemic eating exercise mindful eating, using yoga and meditation along with deep breathing and connecting with friends and family. E. MASS PAT reviewed, Patient's current medications were reviewed and opinion was given on medication that can cause weight gain and can be substituted F. Patient was assessed for risk with obesity including and not limiting to atherosclerosis heart disease stroke kidney disease, restrictive lung disease, irritable bowel syndrome and overall mortality. Risk of developing prediabetes diabetes and metabolic syndrome was discussed G. Therapeutic plan: We have decided to make therapeutic plan which would include choosing wisely on calories restricting portion getting active, tracking weight, getting good quality sleep and working on time management H. Patient will follow up in (4) weeks for weight management Total time spent today was 60 minutes of which greater than 50% was spent on coordinating and counseling Case discussed with collaborating physician Delonte Ramirez who reviewed the assessment and plan. Chart, medications, labs, vital signs reviewed. Dictation was accomplished with the use of Mindie voice recognition software, prone to medical misidentifications and grammatical errors. This is unintentional and the practitioner does try to identify and correct these, but some could still be present. Please do not hesitate to contact practitioner for clarification. All questions answered to patients satisfaction. Patient verbalized understanding of diagnosis and treatments explained. To call sooner prior to next visit it any questions/concerns arise. 02/27/2025 BMI 40.0-44.9, adult (ICD-10 - Z68.41) #Morbid obesity. 211.1 pounds, BMI 44.1. New patient welcome to the practice today. Seca scale results reviewed in detail with patient. Discussed medical weight loss options in detail. She is most interested in Zepbound or Wegovy. Will submit for Zepbound and follow-up pending PA determination. Reviewed risk benefits adverse effects of medication in detail with patient. Demonstrated proper use of pen autoinjector here in office. Discussed importance of lifestyle modifications including higher protein diet with a goal of 80 g of protein a day, increased exercise and hydration. Will get comprehensive labs and review at follow-up visit in 1 month. Discussed importance of daily probiotic and vitamin supplementation. Follow-up in 1 month sooner with any concerns. #HTN. Follows with primary care. Has been well-controlled on current regimen. Mildly elevated in the office today. #GERD. Currently on PPI daily. #Asthma. Has been well-controlled. #Hypothyroidism. Discussed importance of monitoring thyroid function test while on GLP-1's. Patient meets criteria for Zepbound/Wegovy due to the following criteria: Patient is over the age of [age] years old. Patients BMI is > 30 at 44.1. Comorbidities include: Hypertension. These medications are being prescribed under the supervision of an obesity medicine certified physician, Dr. Ping Ramirez. Weight Consult Plan: Patient has been found to be obese with a BMI of 44.1. Patient has class 3 obesity. Patient was reassured and welcomed to the practice. We discussed that we stress a hollistic medical approach with emphasis on lifestyle modification. Patient was informed that a healthy lifestyle with exercise and good eating habits can help reduce his risk of medical complications. He is explained that obesity increases his risk of diabetes, cardiovascular disease, or organ damage. We spent a lot of time discussing the relationship between food, exercise, sleep, mental health and obesity. Patient was counseled on the importance EATING local, organic food when possible. Patient was educated on clean 15 and dirty dozen. I provided information about reading books called The Food Rules by Emmanuel Feliciano and Eat Fat Get Lean by Dr Navneet Mahoney. Self education is important in the journey for weight management. Patient was offered diagnostic testing. We want to measure visceral adiposity, advanced body composition, adverse lipids, fatty acid balance, risk for heart disease and atherosclerosis, markers of inflammation and genetic susceptibility. Patient was counseled on weight management and was advised to lose weight using B. Lifestyle management which includes several strategies as below 1. Eat a low carbohydrate good fat good protein diet. Eliminate refined carbohydrates from the diet. Continue blood sugar and sugared beverages. Eat local organic when possible. Cook your own meals. Read food labels. None about healthy snacks. Portion control and food with low glycemic index 2. Exercise regularly. Try to get at least 6000 steps a day. Use a predominant to track activity level. Consider using apps like Fear Hunters, NONOpal, lose it, stick as needed for self-monitoring and weight management. Consider group exercises. Consider hiring a personal injury litigation paralegal. Regular exercise is short to sustainable health and prevents as a buffer against weight regain 3. Sleep is most important for healing. Tried to sleep at least 8 hours a night. A good quality sleep needs a sleep ritual with ideal room temperature of around 68. It might help to take a shower and have no electronics in the room and sleep in a very dark room without artificial light. Start her sleep routine and get up early in the morning and go to bed on time 4. Make a social connection. Surround yourself with positive people with positive energy. Connect with friends and family. 5. Get into the habit of meditating and mindfulness while doing everything. 6. Go outside and connect with nature. C. Prescription medications Patient was educated on the use of prescription medications for medical weight loss. This is a growing list and includes phentermine, Topamax,Qsymia, contrave, belviq and saxenda. All prescription medications could have side effects including but not limited to kidney stones, seizure disorder cardiac arrhythmias heart attack pancreatitis etc. etc.. Patient was encouraged to read the prescription insert and have coaching with their pharmacist and make an informed decision about taking medication and know that these medications are being prescribed with good intentions and we do not know how a patient would react to her medication. Sudden medications are FDA approved for weight loss and there is also off label use depending on patient's inability to afford medications in an attempt to lose weight D. Behavioral counseling was done to establish a relationship between food and an mood. Patient was provided information about local counseling and psychiatry and Dr Taylor at [facility]. We would like to cover regular topics and build on low glycemic eating exercise mindful eating, using yoga and meditation along with deep breathing and connecting with friends and family. E. MASS PAT reviewed, Patient's current medications were reviewed and opinion was given on medication that can cause weight gain and can be substituted F. Patient was assessed for risk with obesity including and not limiting to atherosclerosis heart disease stroke kidney disease, restrictive lung disease, irritable bowel syndrome and overall mortality. Risk of developing prediabetes diabetes and metabolic syndrome was discussed G. Therapeutic plan: We have decided to make therapeutic plan which would include choosing wisely on calories restricting portion getting active, tracking weight, getting good quality sleep and working on time management H. Patient will follow up in (4) weeks for weight management Total time spent today was 60 minutes of which greater than 50% was spent on coordinating and counseling Case discussed with collaborating physician Delonte Ramirez who reviewed the assessment and plan. Chart, medications, labs, vital signs reviewed. Dictation was accomplished with the use of Mindie voice recognition software, prone to medical misidentifications and grammatical errors. This is unintentional and the practitioner does try to identify and correct these, but some could still be present. Please do not hesitate to contact practitioner for clarification. All questions answered to patients satisfaction. Patient verbalized understanding of diagnosis and treatments explained. To call sooner prior to next visit it any questions/concerns arise. 02/27/2025 Hypertension (ICD-10 - I10) #Morbid obesity. 211.1 pounds, BMI 44.1. New patient welcome to the practice today. Seca scale results reviewed in detail with patient. Discussed medical weight loss options in detail. She is most interested in Zepbound or Wegovy. Will submit for Zepbound and follow-up pending PA determination. Reviewed risk benefits adverse effects of medication in detail with patient. Demonstrated proper use of pen autoinjector here in office. Discussed importance of lifestyle modifications including higher protein diet with a goal of 80 g of protein a day, increased exercise and hydration. Will get comprehensive labs and review at follow-up visit in 1 month. Discussed importance of daily probiotic and vitamin supplementation. Follow-up in 1 month sooner with any concerns. #HTN. Follows with primary care. Has been well-controlled on current regimen. Mildly elevated in the office today. #GERD. Currently on PPI daily. #Asthma. Has been well-controlled. #Hypothyroidism. Discussed importance of monitoring thyroid function test while on GLP-1's. Patient meets criteria for Zepbound/Wegovy due to the following criteria: Patient is over the age of [age] years old. Patients BMI is > 30 at 44.1. Comorbidities include: Hypertension. These medications are being prescribed under the supervision of an obesity medicine certified physician, Dr. Ping Ramirez. Weight Consult Plan: Patient has been found to be obese with a BMI of 44.1. Patient has class 3 obesity. Patient was reassured and welcomed to the practice. We discussed that we stress a hollistic medical approach with emphasis on lifestyle modification. Patient was informed that a healthy lifestyle with exercise and good eating habits can help reduce his risk of medical complications. He is explained that obesity increases his risk of diabetes, cardiovascular disease, or organ damage. We spent a lot of time discussing the relationship between food, exercise, sleep, mental health and obesity. Patient was counseled on the importance EATING local, organic food when possible. Patient was educated on clean 15 and dirty dozen. I provided information about reading books called The Food Rules by Emmanuel Feliciano and Eat Fat Get Lean by Dr Navneet Mahoney. Self education is important in the journey for weight management. Patient was offered diagnostic testing. We want to measure visceral adiposity, advanced body composition, adverse lipids, fatty acid balance, risk for heart disease and atherosclerosis, markers of inflammation and genetic susceptibility. Patient was counseled on weight management and was advised to lose weight using B. Lifestyle management which includes several strategies as below 1. Eat a low carbohydrate good fat good protein diet. Eliminate refined carbohydrates from the diet. Continue blood sugar and sugared beverages. Eat local organic when possible. Cook your own meals. Read food labels. None about healthy snacks. Portion control and food with low glycemic index 2. Exercise regularly. Try to get at least 6000 steps a day. Use a predominant to track activity level. Consider using apps like Fear Hunters, NONOpal, lose it, stick as needed for self-monitoring and weight management. Consider group exercises. Consider hiring a personal injury litigation paralegal. Regular exercise is short to sustainable health and prevents as a buffer against weight regain 3. Sleep is most important for healing. Tried to sleep at least 8 hours a night. A good quality sleep needs a sleep ritual with ideal room temperature of around 68. It might help to take a shower and have no electronics in the room and sleep in a very dark room without artificial light. Start her sleep routine and get up early in the morning and go to bed on time 4. Make a social connection. Surround yourself with positive people with positive energy. Connect with friends and family. 5. Get into the habit of meditating and mindfulness while doing everything. 6. Go outside and connect with nature. C. Prescription medications Patient was educated on the use of prescription medications for medical weight loss. This is a growing list and includes phentermine, Topamax,Qsymia, contrave, belviq and saxenda. All prescription medications could have side effects including but not limited to kidney stones, seizure disorder cardiac arrhythmias heart attack pancreatitis etc. etc.. Patient was encouraged to read the prescription insert and have coaching with their pharmacist and make an informed decision about taking medication and know that these medications are being prescribed with good intentions and we do not know how a patient would react to her medication. Sudden medications are FDA approved for weight loss and there is also off label use depending on patient's inability to afford medications in an attempt to lose weight D. Behavioral counseling was done to establish a relationship between food and an mood. Patient was provided information about local counseling and psychiatry and Dr Taylor at [email or web address]. We would like to cover regular topics and build on low glycemic eating exercise mindful eating, using yoga and meditation along with deep breathing and connecting with friends and family. E. MASS PAT reviewed, Patient's current medications were reviewed and opinion was given on medication that can cause weight gain and can be substituted F. Patient was assessed for risk with obesity including and not limiting to atherosclerosis heart disease stroke kidney disease, restrictive lung disease, irritable bowel syndrome and overall mortality. Risk of developing prediabetes diabetes and metabolic syndrome was discussed G. Therapeutic plan: We have decided to make therapeutic plan which would include choosing wisely on calories restricting portion getting active, tracking weight, getting good quality sleep and working on time management H. Patient will follow up in (4) weeks for weight management Total time spent today was 60 minutes of which greater than 50% was spent on coordinating and counseling Case discussed with collaborating physician Delonte Ramirez who reviewed the assessment and plan. Chart, medications, labs, vital signs reviewed. Dictation was accomplished with the use of Mindie voice recognition software, prone to medical misidentifications and grammatical errors. This is unintentional and the practitioner does try to identify and correct these, but some could still be present. Please do not hesitate to contact practitioner for clarification. All questions answered to patients satisfaction. Patient verbalized understanding of diagnosis and treatments explained. To call sooner prior to next visit it any questions/concerns arise. 02/27/2025 GERD (gastroesophageal reflux disease) (ICD-10 - K21.9) #Morbid obesity. 211.1 pounds, BMI 44.1. New patient welcome to the practice today. Seca scale results reviewed in detail with patient. Discussed medical weight loss options in detail. She is most interested in Zepbound or Wegovy. Will submit for Zepbound and follow-up pending PA determination. Reviewed risk benefits adverse effects of medication in detail with patient. Demonstrated proper use of pen autoinjector here in office. Discussed importance of lifestyle modifications including higher protein diet with a goal of 80 g of protein a day, increased exercise and hydration. Will get comprehensive labs and review at follow-up visit in 1 month. Discussed importance of daily probiotic and vitamin supplementation. Follow-up in 1 month sooner with any concerns. #HTN. Follows with primary care. Has been well-controlled on current regimen. Mildly elevated in the office today. #GERD. Currently on PPI daily. #Asthma. Has been well-controlled. #Hypothyroidism. Discussed importance of monitoring thyroid function test while on GLP-1's. Patient meets criteria for Zepbound/Wegovy due to the following criteria: Patient is over the age of [age] years old. Patients BMI is > 30 at 44.1. Comorbidities include: Hypertension. These medications are being prescribed under the supervision of an obesity medicine certified physician, Dr. Ping Ramirez. Weight Consult Plan: Patient has been found to be obese with a BMI of 44.1. Patient has class 3 obesity. Patient was reassured and welcomed to the practice. We discussed that we stress a hollistic medical approach with emphasis on lifestyle modification. Patient was informed that a healthy lifestyle with exercise and good eating habits can help reduce his risk of medical complications. He is explained that obesity increases his risk of diabetes, cardiovascular disease, or organ damage. We spent a lot of time discussing the relationship between food, exercise, sleep, mental health and obesity. Patient was counseled on the importance EATING local, organic food when possible. Patient was educated on clean 15 and dirty dozen. I provided information about reading books called The Food Rules by Emmanuel Feliciano and Eat Fat Get Lean by Dr Navneet Mahoney. Self education is important in the journey for weight management. Patient was offered diagnostic testing. We want to measure visceral adiposity, advanced body composition, adverse lipids, fatty acid balance, risk for heart disease and atherosclerosis, markers of inflammation and genetic susceptibility. Patient was counseled on weight management and was advised to lose weight using B. Lifestyle management which includes several strategies as below 1. Eat a low carbohydrate good fat good protein diet. Eliminate refined carbohydrates from the diet. Continue blood sugar and sugared beverages. Eat local organic when possible. Cook your own meals. Read food labels. None about healthy snacks. Portion control and food with low glycemic index 2. Exercise regularly. Try to get at least 6000 steps a day. Use a predominant to track activity level. Consider using apps like Fear Hunters, NONOpal, lose it, stick as needed for self-monitoring and weight management. Consider group exercises. Consider hiring a personal injury litigation paralegal. Regular exercise is short to sustainable health and prevents as a buffer against weight regain 3. Sleep is most important for healing. Tried to sleep at least 8 hours a night. A good quality sleep needs a sleep ritual with ideal room temperature of around 68. It might help to take a shower and have no electronics in the room and sleep in a very dark room without artificial light. Start her sleep routine and get up early in the morning and go to bed on time 4. Make a social connection. Surround yourself with positive people with positive energy. Connect with friends and family. 5. Get into the habit of meditating and mindfulness while doing everything. 6. Go outside and connect with nature. C. Prescription medications Patient was educated on the use of prescription medications for medical weight loss. This is a growing list and includes phentermine, Topamax,Qsymia, contrave, belviq and saxenda. All prescription medications could have side effects including but not limited to kidney stones, seizure disorder cardiac arrhythmias heart attack pancreatitis etc. etc.. Patient was encouraged to read the prescription insert and have coaching with their pharmacist and make an informed decision about taking medication and know that these medications are being prescribed with good intentions and we do not know how a patient would react to her medication. Sudden medications are FDA approved for weight loss and there is also off label use depending on patient's inability to afford medications in an attempt to lose weight D. Behavioral counseling was done to establish a relationship between food and an mood. Patient was provided information about local counseling and psychiatry and Dr Taylor at [email or web address]. We would like to cover regular topics and build on low glycemic eating exercise mindful eating, using yoga and meditation along with deep breathing and connecting with friends and family. E. MASS PAT reviewed, Patient's current medications were reviewed and opinion was given on medication that can cause weight gain and can be substituted F. Patient was assessed for risk with obesity including and not limiting to atherosclerosis heart disease stroke kidney disease, restrictive lung disease, irritable bowel syndrome and overall mortality. Risk of developing prediabetes diabetes and metabolic syndrome was discussed G. Therapeutic plan: We have decided to make therapeutic plan which would include choosing wisely on calories restricting portion getting active, tracking weight, getting good quality sleep and working on time management H. Patient will follow up in (4) weeks for weight management Total time spent today was 60 minutes of which greater than 50% was spent on coordinating and counseling Case discussed with collaborating physician Delonte Ramirez who reviewed the assessment and plan. Chart, medications, labs, vital signs reviewed. Dictation was accomplished with the use of Mindie voice recognition software, prone to medical misidentifications and grammatical errors. This is unintentional and the practitioner does try to identify and correct these, but some could still be present. Please do not hesitate to contact practitioner for clarification. All questions answered to patients satisfaction. Patient verbalized understanding of diagnosis and treatments explained. To call sooner prior to next visit it any questions/concerns arise. 02/27/2025 Asthma (ICD-10 - J45.909) #Morbid obesity. 211.1 pounds, BMI 44.1. New patient welcome to the practice today. Seca scale results reviewed in detail with patient. Discussed medical weight loss options in detail. She is most interested in Zepbound or Wegovy. Will submit for Zepbound and follow-up pending PA determination. Reviewed risk benefits adverse effects of medication in detail with patient. Demonstrated proper use of pen autoinjector here in office. Discussed importance of lifestyle modifications including higher protein diet with a goal of 80 g of protein a day, increased exercise and hydration. Will get comprehensive labs and review at follow-up visit in 1 month. Discussed importance of daily probiotic and vitamin supplementation. Follow-up in 1 month sooner with any concerns. #HTN. Follows with primary care. Has been well-controlled on current regimen. Mildly elevated in the office today. #GERD. Currently on PPI daily. #Asthma. Has been well-controlled. #Hypothyroidism. Discussed importance of monitoring thyroid function test while on GLP-1's. Patient meets criteria for Zepbound/Wegovy due to the following criteria: Patient is over the age of [age] years old. Patients BMI is > 30 at 44.1. Comorbidities include: Hypertension. These medications are being prescribed under the supervision of an obesity medicine certified physician, Dr. Ping Ramirez. Weight Consult Plan: Patient has been found to be obese with a BMI of 44.1. Patient has class 3 obesity. Patient was reassured and welcomed to the practice. We discussed that we stress a hollistic medical approach with emphasis on lifestyle modification. Patient was informed that a healthy lifestyle with exercise and good eating habits can help reduce his risk of medical complications. He is explained that obesity increases his risk of diabetes, cardiovascular disease, or organ damage. We spent a lot of time discussing the relationship between food, exercise, sleep, mental health and obesity. Patient was counseled on the importance EATING local, organic food when possible. Patient was educated on clean 15 and dirty dozen. I provided information about reading books called The Food Rules by Emmanuel Feliciano and Eat Fat Get Lean by Dr Navneet Mahoney. Self education is important in the journey for weight management. Patient was offered diagnostic testing. We want to measure visceral adiposity, advanced body composition, adverse lipids, fatty acid balance, risk for heart disease and atherosclerosis, markers of inflammation and genetic susceptibility. Patient was counseled on weight management and was advised to lose weight using B. Lifestyle management which includes several strategies as below 1. Eat a low carbohydrate good fat good protein diet. Eliminate refined carbohydrates from the diet. Continue blood sugar and sugared beverages. Eat local organic when possible. Cook your own meals. Read food labels. None about healthy snacks. Portion control and food with low glycemic index 2. Exercise regularly. Try to get at least 6000 steps a day. Use a predominant to track activity level. Consider using apps like [employer]ters, NONOpal, lose it, stick as needed for self-monitoring and weight management. Consider group exercises. Consider hiring a personal injury litigation paralegal. Regular exercise is short to sustainable health and prevents as a buffer against weight regain 3. Sleep is most important for healing. Tried to sleep at least 8 hours a night. A good quality sleep needs a sleep ritual with ideal room temperature of around 68. It might help to take a shower and have no electronics in the room and sleep in a very dark room without artificial light. Start her sleep routine and get up early in the morning and go to bed on time 4. Make a social connection. Surround yourself with positive people with positive energy. Connect with friends and family. 5. Get into the habit of meditating and mindfulness while doing everything. 6. Go outside and connect with nature. C. Prescription medications Patient was educated on the use of prescription medications for medical weight loss. This is a growing list and includes phentermine, Topamax,Qsymia, contrave, belviq and saxenda. All prescription medications could have side effects including but not limited to kidney stones, seizure disorder cardiac arrhythmias heart attack pancreatitis etc. etc.. Patient was encouraged to read the prescription insert and have coaching with their pharmacist and make an informed decision about taking medication and know that these medications are being prescribed with good intentions and we do not know how a patient would react to her medication. Sudden medications are FDA approved for weight loss and there is also off label use depending on patient's inability to afford medications in an attempt to lose weight D. Behavioral counseling was done to establish a relationship between food and an mood. Patient was provided information about local counseling and psychiatry and Dr Taylor at [email or web address]. We would like to cover regular topics and build on low glycemic eating exercise mindful eating, using yoga and meditation along with deep breathing and connecting with friends and family. E. MASS PAT reviewed, Patient's current medications were reviewed and opinion was given on medication that can cause weight gain and can be substituted F. Patient was assessed for risk with obesity including and not limiting to atherosclerosis heart disease stroke kidney disease, restrictive lung disease, irritable bowel syndrome and overall mortality. Risk of developing prediabetes diabetes and metabolic syndrome was discussed G. Therapeutic plan: We have decided to make therapeutic plan which would include choosing wisely on calories restricting portion getting active, tracking weight, getting good quality sleep and working on time management H. Patient will follow up in (4) weeks for weight management Total time spent today was 60 minutes of which greater than 50% was spent on coordinating and counseling Case discussed with collaborating physician Delonte Ramirez who reviewed the assessment and plan. Chart, medications, labs, vital signs reviewed. Dictation was accomplished with the use of Mindie voice recognition software, prone to medical misidentifications and grammatical errors. This is unintentional and the practitioner does try to identify and correct these, but some could still be present. Please do not hesitate to contact practitioner for clarification. All questions answered to patients satisfaction. Patient verbalized understanding of diagnosis and treatments explained. To call sooner prior to next visit it any questions/concerns arise. 02/27/2025 Depression (ICD-10 - F32.A) #Morbid obesity. 211.1 pounds, BMI 44.1. New patient welcome to the practice today. Seca scale results reviewed in detail with patient. Discussed medical weight loss options in detail. She is most interested in Zepbound or Wegovy. Will submit for Zepbound and follow-up pending PA determination. Reviewed risk benefits adverse effects of medication in detail with patient. Demonstrated proper use of pen autoinjector here in office. Discussed importance of lifestyle modifications including higher protein diet with a goal of 80 g of protein a day, increased exercise and hydration. Will get comprehensive labs and review at follow-up visit in 1 month. Discussed importance of daily probiotic and vitamin supplementation. Follow-up in 1 month sooner with any concerns. #HTN. Follows with primary care. Has been well-controlled on current regimen. Mildly elevated in the office today. #GERD. Currently on PPI daily. #Asthma. Has been well-controlled. #Hypothyroidism. Discussed importance of monitoring thyroid function test while on GLP-1's. Patient meets criteria for Zepbound/Wegovy due to the following criteria: Patient is over the age of [age] years old. Patients BMI is > 30 at 44.1. Comorbidities include: Hypertension. These medications are being prescribed under the supervision of an obesity medicine certified physician, Dr. Ping Ramirez. Weight Consult Plan: Patient has been found to be obese with a BMI of 44.1. Patient has class 3 obesity. Patient was reassured and welcomed to the practice. We discussed that we stress a hollistic medical approach with emphasis on lifestyle modification. Patient was informed that a healthy lifestyle with exercise and good eating habits can help reduce his risk of medical complications. He is explained that obesity increases his risk of diabetes, cardiovascular disease, or organ damage. We spent a lot of time discussing the relationship between food, exercise, sleep, mental health and obesity. Patient was counseled on the importance EATING local, organic food when possible. Patient was educated on clean 15 and dirty dozen. I provided information about reading books called The Food Rules by Emmanuel Feliciano and Eat Fat Get Lean by Dr Navneet Mahoney. Self education is important in the journey for weight management. Patient was offered diagnostic testing. We want to measure visceral adiposity, advanced body composition, adverse lipids, fatty acid balance, risk for heart disease and atherosclerosis, markers of inflammation and genetic susceptibility. Patient was counseled on weight management and was advised to lose weight using B. Lifestyle management which includes several strategies as below 1. Eat a low carbohydrate good fat good protein diet. Eliminate refined carbohydrates from the diet. Continue blood sugar and sugared beverages. Eat local organic when possible. Cook your own meals. Read food labels. None about healthy snacks. Portion control and food with low glycemic index 2. Exercise regularly. Try to get at least 6000 steps a day. Use a predominant to track activity level. Consider using apps like [employer]ters, myfitnesspal, lose it, stick as needed for self-monitoring and weight management. Consider group exercises. Consider hiring a personal injury litigation paralegal. Regular exercise is short to sustainable health and prevents as a buffer against weight regain 3. Sleep is most important for healing. Tried to sleep at least 8 hours a night. A good quality sleep needs a sleep ritual with ideal room temperature of around 68. It might help to take a shower and have no electronics in the room and sleep in a very dark room without artificial light. Start her sleep routine and get up early in the morning and go to bed on time 4. Make a social connection. Surround yourself with positive people with positive energy. Connect with friends and family. 5. Get into the habit of meditating and mindfulness while doing everything. 6. Go outside and connect with nature. C. Prescription medications Patient was educated on the use of prescription medications for medical weight loss. This is a growing list and includes phentermine, Topamax,Qsymia, contrave, belviq and saxenda. All prescription medications could have side effects including but not limited to kidney stones, seizure disorder cardiac arrhythmias heart attack pancreatitis etc. etc.. Patient was encouraged to read the prescription insert and have coaching with their pharmacist and make an informed decision about taking medication and know that these medications are being prescribed with good intentions and we do not know how a patient would react to her medication. Sudden medications are FDA approved for weight loss and there is also off label use depending on patient's inability to afford medications in an attempt to lose weight D. Behavioral counseling was done to establish a relationship between food and an mood. Patient was provided information about local counseling and psychiatry and Dr Taylor at [email or web address]. We would like to cover regular topics and build on low glycemic eating exercise mindful eating, using yoga and meditation along with deep breathing and connecting with friends and family. E. MASS PAT reviewed, Patient's current medications were reviewed and opinion was given on medication that can cause weight gain and can be substituted F. Patient was assessed for risk with obesity including and not limiting to atherosclerosis heart disease stroke kidney disease, restrictive lung disease, irritable bowel syndrome and overall mortality. Risk of developing prediabetes diabetes and metabolic syndrome was discussed G. Therapeutic plan: We have decided to make therapeutic plan which would include choosing wisely on calories restricting portion getting active, tracking weight, getting good quality sleep and working on time management H. Patient will follow up in (4) weeks for weight management Total time spent today was 60 minutes of which greater than 50% was spent on coordinating and counseling Case discussed with collaborating physician Delonte Ramirez who reviewed the assessment and plan. Chart, medications, labs, vital signs reviewed. Dictation was accomplished with the use of Mindie voice recognition software, prone to medical misidentifications and grammatical errors. This is unintentional and the practitioner does try to identify and correct these, but some could still be present. Please do not hesitate to contact practitioner for clarification. All questions answered to patients satisfaction. Patient verbalized understanding of diagnosis and treatments explained. To call sooner prior to next visit it any questions/concerns arise. 02/27/2025 Encounter for nutritional counseling (ICD-10 - Z71.3) #Morbid obesity. 211.1 pounds, BMI 44.1. New patient welcome to the practice today. Seca scale results reviewed in detail with patient. Discussed medical weight loss options in detail. She is most interested in Zepbound or Wegovy. Will submit for Zepbound and follow-up pending PA determination. Reviewed risk benefits adverse effects of medication in detail with patient. Demonstrated proper use of pen autoinjector here in office. Discussed importance of lifestyle modifications including higher protein diet with a goal of 80 g of protein a day, increased exercise and hydration. Will get comprehensive labs and review at follow-up visit in 1 month. Discussed importance of daily probiotic and vitamin supplementation. Follow-up in 1 month sooner with any concerns. #HTN. Follows with primary care. Has been well-controlled on current regimen. Mildly elevated in the office today. #GERD. Currently on PPI daily. #Asthma. Has been well-controlled. #Hypothyroidism. Discussed importance of monitoring thyroid function test while on GLP-1's. Patient meets criteria for Zepbound/Wegovy due to the following criteria: Patient is over the age of [age] years old. Patients BMI is > 30 at 44.1. Comorbidities include: Hypertension. These medications are being prescribed under the supervision of an obesity medicine certified physician, Dr. Ping Ramirez. Weight Consult Plan: Patient has been found to be obese with a BMI of 44.1. Patient has class 3 obesity. Patient was reassured and welcomed to the practice. We discussed that we stress a hollistic medical approach with emphasis on lifestyle modification. Patient was informed that a healthy lifestyle with exercise and good eating habits can help reduce his risk of medical complications. He is explained that obesity increases his risk of diabetes, cardiovascular disease, or organ damage. We spent a lot of time discussing the relationship between food, exercise, sleep, mental health and obesity. Patient was counseled on the importance EATING local, organic food when possible. Patient was educated on clean 15 and dirty dozen. I provided information about reading books called The Food Rules by Emmanuel Feliciano and Eat Fat Get Lean by Dr Navneet Mahoney. Self education is important in the journey for weight management. Patient was offered diagnostic testing. We want to measure visceral adiposity, advanced body composition, adverse lipids, fatty acid balance, risk for heart disease and atherosclerosis, markers of inflammation and genetic susceptibility. Patient was counseled on weight management and was advised to lose weight using B. Lifestyle management which includes several strategies as below 1. Eat a low carbohydrate good fat good protein diet. Eliminate refined carbohydrates from the diet. Continue blood sugar and sugared beverages. Eat local organic when possible. Cook your own meals. Read food labels. None about healthy snacks. Portion control and food with low glycemic index 2. Exercise regularly. Try to get at least 6000 steps a day. Use a predominant to track activity level. Consider using apps like [employer] Hunters, [employer], lose it, stick as needed for self-monitoring and weight management. Consider group exercises. Consider hiring a personal injury litigation paralegal. Regular exercise is short to sustainable health and prevents as a buffer against weight regain 3. Sleep is most important for healing. Tried to sleep at least 8 hours a night. A good quality sleep needs a sleep ritual with ideal room temperature of around 68. It might help to take a shower and have no electronics in the room and sleep in a very dark room without artificial light. Start her sleep routine and get up early in the morning and go to bed on time 4. Make a social connection. Surround yourself with positive people with positive energy. Connect with friends and family. 5. Get into the habit of meditating and mindfulness while doing everything. 6. Go outside and connect with nature. C. Prescription medications Patient was educated on the use of prescription medications for medical weight loss. This is a growing list and includes phentermine, Topamax,Qsymia, contrave, belviq and saxenda. All prescription medications could have side effects including but not limited to kidney stones, seizure disorder cardiac arrhythmias heart attack pancreatitis etc. etc.. Patient was encouraged to read the prescription insert and have coaching with their pharmacist and make an informed decision about taking medication and know that these medications are being prescribed with good intentions and we do not know how a patient would react to her medication. Sudden medications are FDA approved for weight loss and there is also off label use depending on patient's inability to afford medications in an attempt to lose weight D. Behavioral counseling was done to establish a relationship between food and an mood. Patient was provided information about local counseling and psychiatry and Dr Taylor at [email or web address]. We would like to cover regular topics and build on low glycemic eating exercise mindful eating, using yoga and meditation along with deep breathing and connecting with friends and family. E. MASS PAT reviewed, Patient's current medications were reviewed and opinion was given on medication that can cause weight gain and can be substituted F. Patient was assessed for risk with obesity including and not limiting to atherosclerosis heart disease stroke kidney disease, restrictive lung disease, irritable bowel syndrome and overall mortality. Risk of developing prediabetes diabetes and metabolic syndrome was discussed G. Therapeutic plan: We have decided to make therapeutic plan which would include choosing wisely on calories restricting portion getting active, tracking weight, getting good quality sleep and working on time management H. Patient will follow up in (4) weeks for weight management Total time spent today was 60 minutes of which greater than 50% was spent on coordinating and counseling Case discussed with collaborating physician Delonte Ramirez who reviewed the assessment and plan. Chart, medications, labs, vital signs reviewed. Dictation was accomplished with the use of Mindie voice recognition software, prone to medical misidentifications and grammatical errors. This is unintentional and the practitioner does try to identify and correct these, but some could still be present. Please do not hesitate to contact practitioner for clarification. All questions answered to patients satisfaction. Patient verbalized understanding of diagnosis and treatments explained. To call sooner prior to next visit it any questions/concerns arise. 02/27/2025 History of gastric bypass (ICD-10 - Z98.84) #Morbid obesity. 211.1 pounds, BMI 44.1. New patient welcome to the practice today. Seca scale results reviewed in detail with patient. Discussed medical weight loss options in detail. She is most interested in Zepbound or Wegovy. Will submit for Zepbound and follow-up pending PA determination. Reviewed risk benefits adverse effects of medication in detail with patient. Demonstrated proper use of pen autoinjector here in office. Discussed importance of lifestyle modifications including higher protein diet with a goal of 80 g of protein a day, increased exercise and hydration. Will get comprehensive labs and review at follow-up visit in 1 month. Discussed importance of daily probiotic and vitamin supplementation. Follow-up in 1 month sooner with any concerns. #HTN. Follows with primary care. Has been well-controlled on current regimen. Mildly elevated in the office today. #GERD. Currently on PPI daily. #Asthma. Has been well-controlled. #Hypothyroidism. Discussed importance of monitoring thyroid function test while on GLP-1's. Patient meets criteria for Zepbound/Wegovy due to the following criteria: Patient is over the age of [age] years old. Patients BMI is > 30 at 44.1. Comorbidities include: Hypertension. These medications are being prescribed under the supervision of an obesity medicine certified physician, Dr. Ping Ramirez. Weight Consult Plan: Patient has been found to be obese with a BMI of 44.1. Patient has class 3 obesity. Patient was reassured and welcomed to the practice. We discussed that we stress a hollistic medical approach with emphasis on lifestyle modification. Patient was informed that a healthy lifestyle with exercise and good eating habits can help reduce his risk of medical complications. He is explained that obesity increases his risk of diabetes, cardiovascular disease, or organ damage. We spent a lot of time discussing the relationship between food, exercise, sleep, mental health and obesity. Patient was counseled on the importance EATING local, organic food when possible. Patient was educated on clean 15 and dirty dozen. I provided information about reading books called The Food Rules by Emmanuel Feliciano and Eat Fat Get Lean by Dr Navneet Mahoney. Self education is important in the journey for weight management. Patient was offered diagnostic testing. We want to measure visceral adiposity, advanced body composition, adverse lipids, fatty acid balance, risk for heart disease and atherosclerosis, markers of inflammation and genetic susceptibility. Patient was counseled on weight management and was advised to lose weight using B. Lifestyle management which includes several strategies as below 1. Eat a low carbohydrate good fat good protein diet. Eliminate refined carbohydrates from the diet. Continue blood sugar and sugared beverages. Eat local organic when possible. Cook your own meals. Read food labels. None about healthy snacks. Portion control and food with low glycemic index 2. Exercise regularly. Try to get at least 6000 steps a day. Use a predominant to track activity level. Consider using apps like [employer], [employer], lose it, stick as needed for self-monitoring and weight management. Consider group exercises. Consider hiring a personal injury litigation paralegal. Regular exercise is short to sustainable health and prevents as a buffer against weight regain 3. Sleep is most important for healing. Tried to sleep at least 8 hours a night. A good quality sleep needs a sleep ritual with ideal room temperature of around 68. It might help to take a shower and have no electronics in the room and sleep in a very dark room without artificial light. Start her sleep routine and get up early in the morning and go to bed on time 4. Make a social connection. Surround yourself with positive people with positive energy. Connect with friends and family. 5. Get into the habit of meditating and mindfulness while doing everything. 6. Go outside and connect with nature. C. Prescription medications Patient was educated on the use of prescription medications for medical weight loss. This is a growing list and includes phentermine, Topamax,Qsymia, contrave, belviq and saxenda. All prescription medications could have side effects including but not limited to kidney stones, seizure disorder cardiac arrhythmias heart attack pancreatitis etc. etc.. Patient was encouraged to read the prescription insert and have coaching with their pharmacist and make an informed decision about taking medication and know that these medications are being prescribed with good intentions and we do not know how a patient would react to her medication. Sudden medications are FDA approved for weight loss and there is also off label use depending on patient's inability to afford medications in an attempt to lose weight D. Behavioral counseling was done to establish a relationship between food and an mood. Patient was provided information about local counseling and psychiatry and Dr Taylor at [email or web address]. We would like to cover regular topics and build on low glycemic eating exercise mindful eating, using yoga and meditation along with deep breathing and connecting with friends and family. E. MASS PAT reviewed, Patient's current medications were reviewed and opinion was given on medication that can cause weight gain and can be substituted F. Patient was assessed for risk with obesity including and not limiting to atherosclerosis heart disease stroke kidney disease, restrictive lung disease, irritable bowel syndrome and overall mortality. Risk of developing prediabetes diabetes and metabolic syndrome was discussed G. Therapeutic plan: We have decided to make therapeutic plan which would include choosing wisely on calories restricting portion getting active, tracking weight, getting good quality sleep and working on time management H. Patient will follow up in (4) weeks for weight management Total time spent today was 60 minutes of which greater than 50% was spent on coordinating and counseling Case discussed with collaborating physician Delonte Ramirez who reviewed the assessment and plan. Chart, medications, labs, vital signs reviewed. Dictation was accomplished with the use of Mindie voice recognition software, prone to medical misidentifications and grammatical errors. This is unintentional and the practitioner does try to identify and correct these, but some could still be present. Please do not hesitate to contact practitioner for clarification. All questions answered to patients satisfaction. Patient verbalized understanding of diagnosis and treatments explained. To call sooner prior to next visit it any questions/concerns arise. 02/27/2025 Hypothyroidism (acquired) (ICD-10 - E03.9) #Morbid obesity. 211.1 pounds, BMI 44.1. New patient welcome to the practice today. Seca scale results reviewed in detail with patient. Discussed medical weight loss options in detail. She is most interested in Zepbound or Wegovy. Will submit for Zepbound and follow-up pending PA determination. Reviewed risk benefits adverse effects of medication in detail with patient. Demonstrated proper use of pen autoinjector here in office. Discussed importance of lifestyle modifications including higher protein diet with a goal of 80 g of protein a day, increased exercise and hydration. Will get comprehensive labs and review at follow-up visit in 1 month. Discussed importance of daily probiotic and vitamin supplementation. Follow-up in 1 month sooner with any concerns. #HTN. Follows with primary care. Has been well-controlled on current regimen. Mildly elevated in the office today. #GERD. Currently on PPI daily. #Asthma. Has been well-controlled. #Hypothyroidism. Discussed importance of monitoring thyroid function test while on GLP-1's. Patient meets criteria for Zepbound/Wegovy due to the following criteria: Patient is over the age of [age] years old. Patients BMI is > 30 at 44.1. Comorbidities include: Hypertension. These medications are being prescribed under the supervision of an obesity medicine certified physician, Dr. Ping Ramirez. Weight Consult Plan: Patient has been found to be obese with a BMI of 44.1. Patient has class 3 obesity. Patient was reassured and welcomed to the practice. We discussed that we stress a hollistic medical approach with emphasis on lifestyle modification. Patient was informed that a healthy lifestyle with exercise and good eating habits can help reduce his risk of medical complications. He is explained that obesity increases his risk of diabetes, cardiovascular disease, or organ damage. We spent a lot of time discussing the relationship between food, exercise, sleep, mental health and obesity. Patient was counseled on the importance EATING local, organic food when possible. Patient was educated on clean 15 and dirty dozen. I provided information about reading books called The Food Rules by Emmanuel Feliciano and Eat Fat Get Lean by Dr Navneet Mahoney. Self education is important in the journey for weight management. Patient was offered diagnostic testing. We want to measure visceral adiposity, advanced body composition, adverse lipids, fatty acid balance, risk for heart disease and atherosclerosis, markers of inflammation and genetic susceptibility. Patient was counseled on weight management and was advised to lose weight using B. Lifestyle management which includes several strategies as below 1. Eat a low carbohydrate good fat good protein diet. Eliminate refined carbohydrates from the diet. Continue blood sugar and sugared beverages. Eat local organic when possible. Cook your own meals. Read food labels. None about healthy snacks. Portion control and food with low glycemic index 2. Exercise regularly. Try to get at least 6000 steps a day. Use a predominant to track activity level. Consider using apps like [employer]ters, [employer], lose it, stick as needed for self-monitoring and weight management. Consider group exercises. Consider hiring a personal injury litigation paralegal. Regular exercise is short to sustainable health and prevents as a buffer against weight regain 3. Sleep is most important for healing. Tried to sleep at least 8 hours a night. A good quality sleep needs a sleep ritual with ideal room temperature of around 68. It might help to take a shower and have no electronics in the room and sleep in a very dark room without artificial light. Start her sleep routine and get up early in the morning and go to bed on time 4. Make a social connection. Surround yourself with positive people with positive energy. Connect with friends and family. 5. Get into the habit of meditating and mindfulness while doing everything. 6. Go outside and connect with nature. C. Prescription medications Patient was educated on the use of prescription medications for medical weight loss. This is a growing list and includes phentermine, Topamax,Qsymia, contrave, belviq and saxenda. All prescription medications could have side effects including but not limited to kidney stones, seizure disorder cardiac arrhythmias heart attack pancreatitis etc. etc.. Patient was encouraged to read the prescription insert and have coaching with their pharmacist and make an informed decision about taking medication and know that these medications are being prescribed with good intentions and we do not know how a patient would react to her medication. Sudden medications are FDA approved for weight loss and there is also off label use depending on patient's inability to afford medications in an attempt to lose weight D. Behavioral counseling was done to establish a relationship between food and an mood. Patient was provided information about local counseling and psychiatry and Dr Taylor at [email or web address]. We would like to cover regular topics and build on low glycemic eating exercise mindful eating, using yoga and meditation along with deep breathing and connecting with friends and family. E. MASS PAT reviewed, Patient's current medications were reviewed and opinion was given on medication that can cause weight gain and can be substituted F. Patient was assessed for risk with obesity including and not limiting to atherosclerosis heart disease stroke kidney disease, restrictive lung disease, irritable bowel syndrome and overall mortality. Risk of developing prediabetes diabetes and metabolic syndrome was discussed G. Therapeutic plan: We have decided to make therapeutic plan which would include choosing wisely on calories restricting portion getting active, tracking weight, getting good quality sleep and working on time management H. Patient will follow up in (4) weeks for weight management Total time spent today was 60 minutes of which greater than 50% was spent on coordinating and counseling Case discussed with collaborating physician Delonte Ramirez who reviewed the assessment and plan. Chart, medications, labs, vital signs reviewed. Dictation was accomplished with the use of Mindie voice recognition software, prone to medical misidentifications and grammatical errors. This is unintentional and the practitioner does try to identify and correct these, but some could still be present. Please do not hesitate to contact practitioner for clarification. All questions answered to patients satisfaction. Patient verbalized understanding of diagnosis and treatments explained. To call sooner prior to next visit it any questions/concerns arise. 02/27/2025 Vitamin D deficiency (ICD-10 - E55.9) #Morbid obesity. 211.1 pounds, BMI 44.1. New patient welcome to the practice today. Seca scale results reviewed in detail with patient. Discussed medical weight loss options in detail. She is most interested in Zepbound or Wegovy. Will submit for Zepbound and follow-up pending PA determination. Reviewed risk benefits adverse effects of medication in detail with patient. Demonstrated proper use of pen autoinjector here in office. Discussed importance of lifestyle modifications including higher protein diet with a goal of 80 g of protein a day, increased exercise and hydration. Will get comprehensive labs and review at follow-up visit in 1 month. Discussed importance of daily probiotic and vitamin supplementation. Follow-up in 1 month sooner with any concerns. #HTN. Follows with primary care. Has been well-controlled on current regimen. Mildly elevated in the office today. #GERD. Currently on PPI daily. #Asthma. Has been well-controlled. #Hypothyroidism. Discussed importance of monitoring thyroid function test while on GLP-1's. Patient meets criteria for Zepbound/Wegovy due to the following criteria: Patient is over the age of [age] years old. Patients BMI is > 30 at 44.1. Comorbidities include: Hypertension. These medications are being prescribed under the supervision of an obesity medicine certified physician, Dr. Ping Ramirez. Weight Consult Plan: Patient has been found to be obese with a BMI of 44.1. Patient has class 3 obesity. Patient was reassured and welcomed to the practice. We discussed that we stress a hollistic medical approach with emphasis on lifestyle modification. Patient was informed that a healthy lifestyle with exercise and good eating habits can help reduce his risk of medical complications. He is explained that obesity increases his risk of diabetes, cardiovascular disease, or organ damage. We spent a lot of time discussing the relationship between food, exercise, sleep, mental health and obesity. Patient was counseled on the importance EATING local, organic food when possible. Patient was educated on clean 15 and dirty dozen. I provided information about reading books called The Food Rules by Emmanuel Feliciano and Eat Fat Get Lean by Dr Navneet Mahoney. Self education is important in the journey for weight management. Patient was offered diagnostic testing. We want to measure visceral adiposity, advanced body composition, adverse lipids, fatty acid balance, risk for heart disease and atherosclerosis, markers of inflammation and genetic susceptibility. Patient was counseled on weight management and was advised to lose weight using B. Lifestyle management which includes several strategies as below 1. Eat a low carbohydrate good fat good protein diet. Eliminate refined carbohydrates from the diet. Continue blood sugar and sugared beverages. Eat local organic when possible. Cook your own meals. Read food labels. None about healthy snacks. Portion control and food with low glycemic index 2. Exercise regularly. Try to get at least 6000 steps a day. Use a predominant to track activity level. Consider using apps like [employer], [employer], lose it, stick as needed for self-monitoring and weight management. Consider group exercises. Consider hiring a personal injury litigation paralegal. Regular exercise is short to sustainable health and prevents as a buffer against weight regain 3. Sleep is most important for healing. Tried to sleep at least 8 hours a night. A good quality sleep needs a sleep ritual with ideal room temperature of around 68. It might help to take a shower and have no electronics in the room and sleep in a very dark room without artificial light. Start her sleep routine and get up early in the morning and go to bed on time 4. Make a social connection. Surround yourself with positive people with positive energy. Connect with friends and family. 5. Get into the habit of meditating and mindfulness while doing everything. 6. Go outside and connect with nature. C. Prescription medications Patient was educated on the use of prescription medications for medical weight loss. This is a growing list and includes phentermine, Topamax,Qsymia, contrave, belviq and saxenda. All prescription medications could have side effects including but not limited to kidney stones, seizure disorder cardiac arrhythmias heart attack pancreatitis etc. etc.. Patient was encouraged to read the prescription insert and have coaching with their pharmacist and make an informed decision about taking medication and know that these medications are being prescribed with good intentions and we do not know how a patient would react to her medication. Sudden medications are FDA approved for weight loss and there is also off label use depending on patient's inability to afford medications in an attempt to lose weight D. Behavioral counseling was done to establish a relationship between food and an mood. Patient was provided information about local counseling and psychiatry and Dr Taylor at [email or web address]. We would like to cover regular topics and build on low glycemic eating exercise mindful eating, using yoga and meditation along with deep breathing and connecting with friends and family. E. MASS PAT reviewed, Patient's current medications were reviewed and opinion was given on medication that can cause weight gain and can be substituted F. Patient was assessed for risk with obesity including and not limiting to atherosclerosis heart disease stroke kidney disease, restrictive lung disease, irritable bowel syndrome and overall mortality. Risk of developing prediabetes diabetes and metabolic syndrome was discussed G. Therapeutic plan: We have decided to make therapeutic plan which would include choosing wisely on calories restricting portion getting active, tracking weight, getting good quality sleep and working on time management H. Patient will follow up in (4) weeks for weight management Total time spent today was 60 minutes of which greater than 50% was spent on coordinating and counseling Case discussed with collaborating physician Delonte Ramirez who reviewed the assessment and plan. Chart, medications, labs, vital signs reviewed. Dictation was accomplished with the use of Mindie voice recognition software, prone to medical misidentifications and grammatical errors. This is unintentional and the practitioner does try to identify and correct these, but some could still be present. Please do not hesitate to contact practitioner for clarification. All questions answered to patients satisfaction. Patient verbalized understanding of diagnosis and treatments explained. To call sooner prior to next visit it any questions/concerns arise. Plan Of Treatment Pending Test Test Name Order Date TSH 02/27/2025 VITAMIN B12 02/27/2025 INSULIN LEVEL 02/27/2025 LIPID PANEL, STANDARD 02/27/2025 COMPREHENSIVE METABOLIC PANEL 02/27/2025 CBC (INCLUDES DIFF/PLT) 02/27/2025 HEMOGLOBIN A1c 02/27/2025 VITAMIN D,25-OH,TOTAL,IA 02/27/2025 Next Appt Details Provider Name:Aaliyah Narvaez, 1 05/30/2024 08:30:00 AM, [address] [facility], [place] [address], [place], [address], Insurance Providers Payer Name Payer Address Payer Phone Subscriber Number Group Number Insured Name Patient Relationship to Insured Coverage Start Date Coverage End Date [facility] [address] [place] [address] [phone] [id number] Soniya Nevarez Self - patient is the insured Medical (General) History Medical History History ICD Code high blood pressure thyroid disease anxiety kidney stones Gout asthma Arthritis depression Surgical History Surgery Date(Month/Year) Cervical surgery 1991 gastric bypass 07/02/2017
--- OUTSIDE RECORDS SUMMARY | 2025-03-26 02:10 | XMS_ITS ---
Author Name [facility] Organization Unknown Care Team Organization Name Specialty Phone Email Start Date End Da te [facility] 03/18/2022 4
--- NOTE | 2025-03-26 02:53 | ED.ABDPAIN ---
HPI - Abdominal Pain General Chief Complaint: Abdominal Pain Stated Complaint: Stomach Pain Time Seen by Provider: 03/26/25 02:47 Source: patient Mode of arrival: ambulatory Limitations: no limitations History of Present Illness ED Provider: Dr. Kristina Moore HPI narrative: Patient comes to the emergency room complaining of intermittent right flank pain. Patient states that in the past she has passed kidney stones. Patient denies hematuria or dysuria, denies fever chills, complaining of nausea, no vomiting or diarrhea. Related Data Home Medications ?Medication ?Instructions ?Recorded ?Confirmed colchicine 0.6 mg capsule 0.6 mg PO BID 06/20/20 02/04/21 levothyroxine 50 mcg capsule 50 mcg PO DAILY 06/20/20 02/04/21 mecobalamin (vitamin B12) 1,000 1,000 mcg PO DAILY 06/20/20 02/04/21 mcg chewable tablet norethindrone (contraceptive) 0.35 0.35 mg PO DAILY 06/20/20 02/04/21 mg tablet (Yamila) losartan 25 mg tablet 25 mg PO DAILY 02/04/21 02/04/21 Previous Rx's ?Medication ?Instructions ?Recorded calcium 315 mg (as 2 tab PO BID #120 tabs 12/18/20 citrate)-vitamin D3 6.25 mcg (250 unit) tablet pantoprazole 40 mg tablet,delayed 40 mg PO DAILY #30 caps 04/12/21 release Allergies Allergy/AdvReac Type Severity Reaction Status Date / Time Penicillins (PENICILLINS) Allergy Unknown HIVES Verified 03/26/25 01:38 Penicillin Allergy Unknown unknown Uncoded 03/26/25 01:38 Pt states no food allergies Allergy Unknown unknown Uncoded 03/26/25 01:38 Review of Systems Review of Systems Constitutional : No Weight loss, No Fever, No Chills, No Night Sweats, No Fatigue, No Malaise ENT/Mouth : No Hearing loss, No Ear Pain, No Nasal Congestion, No Sinus Pain, No Hoarseness, No sore throat, No Rhinorrhea, No Swallowing Difficulty Eyes: No Eye Pain, No Swelling, No Redness, No Foreign Body, No Discharge, No Vision Changes Cardiovascular : No Chest Pain, No SOB, No Dyspnea on Exertion, No Orthopnea, No Edema, No Palpitations Respiratory : No Cough, No Sputum, No Wheezing, No Smoke Exposure, No Dyspnea Gastrointestinal : No Nausea, No Vomiting, No Diarrhea, No Constipation, complaining of right-sided abdominal pain, mostly flank pain, intermittent Genitourinary : no irregular bleeding, No Dysuria, No Urinary Frequency, No Hematuria, No Urinary Incontinence, No Urgency, complaining of right-sided Flank Pain, No Urinary Flow Changes, No Hesitancy Musculoskeletal : No joint pain, No Myalgias, No Joint Swelling Skin : No Skin Lesions, No rash Neuro : No Weakness, No Numbness, No Paresthesias, No Loss of Consciousness, No Dizziness, No Headache Psych : No Anxiety/Panic, No Depression, No SI/HI/AH/VH, No Social Issues, Heme/Lymph: No Bruising, No Bleeding,No Lymphadenopathy Endocrine : No Polyuria, No Polydipsia, No Temperature Intolerance [facility] Past Medical History Medical History COVID-19 Hypertension Surgical History Gastric bypass status for obesity Gastric bypass status for obesity Family History Family History Mother Cancer Hypertension Brother No problems noted. Sister Hypertension Sister No problems noted. Social History Social History (System 02/18/23 @ 15:04 by Sarita Ray) Alcohol intake: never Patient Tobacco Use Status: Never used Tobacco Smoked in Last 30 Days: No Advance Directives: No Advance Directives Information Provided: Yes Physical Exam ED Exam Exam: Appearance: Alert. Oriented X3. Uncomfortable Eyes: Pupils equal, round and reactive to light. ENT: Pharynx normal. Neck: Normal inspection. Neck supple. No lymph nodes noted. No crepitus CVS: Normal heart rate and rhythm. Pulses normal. Normal S1 and S2 Respiratory: No respiratory distress. Breath sounds normal. No Wheezing. No rales Abdomen: Soft , discomfort to palpation in right lower quadrant, no rebound or guarding, positive CVA tenderness in the right side Skin: Skin warm and dry. Normal skin color. Normal skin turgor. Patient has hirsutism Extremities: No lower extremity edema. No Lacerations. No Rash Neuro: Oriented X 3. No motor deficit. No sensory deficit. Moving all extremities. No slurred speech. CN 2 through 12 grossly intact Psych: calm, cooperative, normal affect Vital Signs: Vital Signs - 24 hr 03/26/25 01:34 Temperature 97.5 F Pulse Rate 82 Respiratory Rate 18 Blood Pressure 133/77 Pulse Oximetry 100 Oxygen Delivery Method Room Air BMI result Body Mass Index 45.8 Course Course Course Narrative: Patient complaining of right-sided flank pain intermittent, patient states she has history of passing kidney stones All of patient's labs and imaging pending Patient was given IM morphine and p.o. ondansetron Medical Decision Making Medical Decision Making [facility] Narrative: My interpretation of labs: Patient's white blood cell count 16. There is a small amount of blood in the urine. CT scan: Appendicitis Patient is allergic to penicillin, patient received IV fluids, levofloxacin and metronidazole, IV morphine for pain control. Patient's potassium was 3.0, patient is NPO at this time, likely go into surgery in couple of hours. Potassium being repleted IV. I discussed the above-mentioned with Dr. Rangel from the surgery team, patient being admitted I discussed the above-mentioned with the patient, patient agrees with plan. Differential Diagnosis Differential Diagnoses: The differential diagnosis associated with the presentation includes (Appendicitis, kidney stone, pyelonephritis, musculoskeletal pain) Admission/Observation Consideration of admission/observation: Escalation of care including admission/observation considered Consult Healthcare Provider Management of the patient was discussed with: Referral Rn Lab Data [facility] Lab Attestation statement: I reviewed the patient's lab results. 03/26/25 03:30 03/26/25 03:30 Labs: Lab Results 03/26/25 Range/Units 03:30 WBC 16.0 H (4.8-10.8) X10*3/uL RBC 4.88 (4.20-5.50) X10*6/uL Hgb 14.7 (12.0-16.0) g/dl Hct 44.2 (37.0-47.0) % MCV 90.6 (80.0-98.0) fL MCH 30.1 (27.0-33.0) pg MCHC 33.3 (31.0-35.0) g/dl RDW 13.6 (11.0-16.0) % Plt Count 270 (160-400) X10*3/uL MPV 9.5 (9.4-12.3) fL Immature Gran % (Auto) 0.3 (0.0-0.4) % Neut % (Auto) 89.1 H (45-73) % Lymph % (Auto) 6.0 L (20-40) % [place] % (Auto) 4.2 (2-11) % Eos % (Auto) 0.1 (0-4) % Baso % (Auto) 0.3 (0-2) % Lymph # (Auto) 1.0 L (1.2-4.9) X10*3/uL [place] # (Auto) 0.7 (0.1-1.2) X10*3/uL Eos # (Auto) 0.0 (0.0-0.4) X10*3/uL Baso # (Auto) 0.0 (0.0-0.2) X10*3/uL Abs Immat Gran (auto) 0.05 H (0.00-0.03) X10*3/uL Absolute Neuts (auto) 14.2 H (2.0-8.3) x10*3/uL Absolute Nucleated RBC 0.000 (0.0-0.012) X10*3/uL Nucleated RBC % (auto) 0.0 (0.0-0.2) /100WBC Sodium 139 (135-145) mmol/L Potassium 3.0 L (3.3-5.1) mmol/L Chloride 100 (96-108) mmol/L Carbon Dioxide 27 (22-29) mmol/L Anion Gap 15 (12-20) BUN 14 (9-16) mg/dL Creatinine 0.58 (0.5-1.4) mg/dL Estim Creat Clear Calc 101.7 Estimated GFR > 60 Random Glucose 98 (60-115) mg/dL Calcium 9.6 (8.4-10.2) mg/dL Total Bilirubin 0.3 (0.0-1.0) mg/dL Direct Bilirubin 0.2 (0.0-0.5) mg/dL AST 33 H (5-31) U/L ALT 25 (0-31) U/L Alkaline Phosphatase 85 (39-117) U/L Total Protein 7.8 (6.5-8.0) g/dL Albumin 4.5 (3.5-5.0) g/dL Urine Color Yellow Urine Appearance Clear Urine pH 5.5 (5.0-9.0) Ur Specific Advance 1.025 (1.005-1.025) Urine Protein Negative (Neg-Trace) mg/dL Urine Glucose (UA) Negative (Negative) mg/dL Urine Ketones 40 (Negative) mg/dL Urine Blood Moderate (2+) H (Negative) Urine Nitrite Negative (Negative) Ur Leukocyte Esterase Negative (Negative) Urine RBC 11-20 H (0-2) /HPF Urine WBC 0-5 (0-5) /HPF Ur Squamous Epith Cells 0-2 (0-2) /HPF Urine Bacteria None Seen (None Seen) Hyaline Casts 0-2 (0-2) /LPF Independent Interpretation I performed an independent interpretation of an: CT Scan Radiology Impression Discussion of test interpretation with radiology: I have reviewed the radiologist's reading. Radiologist Impression: The lung bases are clear. Distended gallbladder without radiopaque gallstone. Rest of the abdominopelvic viscera are unremarkable [id number] neighboring fat stranding. No hydronephrosis or urinary tract stone. Nonobstructive small bowel loops located to the left of the left colon. Finding is incidental. Distended fluid-filled appendix measuring up to 9 mm in width with a 10 mm mildly dense appendiceal base likely appendicolith and neighboring [id number] fat stranding. No extraluminal air or abscess. No acute fracture. Spinal degenerative changes. Multilevel ossification of the anterior longitudinal ligament and supraspinous ligaments at lower thoracic level. IMPRESSION: Uncomplicated appendicitis with a likely appendicolith. Medications Administered Discontinued Medications Generic Name Dose Route Start Last Admin Trade Name Freq PRN Reason Stop Dose Admin Morphine Sulfate 2 mg 03/26/25 02:53 03/26/25 03:19 Morphine Sulfate 4 Mg/Ml Cartridge IM 03/26/25 02:54 2 mg ONCE ONE Administration Protocol Ondansetron HCl 4 mg 03/26/25 02:53 03/26/25 03:18 Ondansetron Odt 4 Mg Tab.Rapdis TRANSLINGU 03/26/25 02:54 4 mg ONCE ONE Administration Critical Care Time Critical Care Time Critical Care Time: Yes Total Critical Care Time: 60 Attestation: I have personally provided critical care time. Time includes review of lab data, radiology results, discussion with consultants, and monitoring for potential decompensation. Intervention performed as documented. Discharge Plan Discharge Clinical Impression: Acute appendicitis, Hypokalemia Patient Disposition: Admitted As Inpatient Print Language: Slovenian
[2025-03-26 03:36] LABS: Hematocrit 44.2 % (37.0-47.0); Hemoglobin 14.7 g/dl (12.0-16.0); Imm Gran Abs Auto 0.05 X10*3/uL (0.00-0.03); Imm Gran Pct Auto 0.3 % (0.0-0.4); Lymphocytes Absolute Auto 1.0 X10*3/uL (1.2-4.9); MANUAL DIFF FLAG NO; Mean Corpuscular HGB Conc 33.3 g/dl (31.0-35.0); Mean Corpuscular Hemoglobin 30.1 pg (27.0-33.0); Mean Corpuscular Volume 90.6 fL (80.0-98.0); NRBC Abs Auto 0.000 X10*3/uL (0.0-0.012); NRBC Pct Auto 0.0 /100WBC (0.0-0.2); Platelet Count 270 X10*3/uL (160-400); Red Blood Count 4.88 X10*6/uL (4.20-5.50); White Blood Count 16.0 X10*3/uL (4.8-10.8)
[2025-03-26 03:37] LABS: Appearance Urine Clear; Glucose Urine UA Negative (Negative); PH 5.5 (5.0-9.0); Specific Gravity - Urine 1.025 (1.005-1.025); UMIC TRIGGER UACC YES
[2025-03-26 03:53] LABS: Alanine Aminotransferase 25 U/L (0-31); Albumin Level 4.5 g/dL (3.5-5.0); Alkaline Phosphatase 85 U/L (39-117); Anion Gap 15 (12-20); Aspartate Amino Transferase 33 U/L (5-31); Blood Urea Nitrogen 14 mg/dL (9-16); Calcium 9.6 mg/dL (8.4-10.2); Carbon Dioxide 27 mmol/L (22-29); Chloride 100 mmol/L (96-108); Creatinine Clr Calc Pharmacy 101.7; Estimated Glomerular Filt Rate > 60; Potassium 3.0 mmol/L (3.3-5.1); Sodium 139 mmol/L (135-145); Total Protein 7.8 g/dL (6.5-8.0)
[2025-03-26] MEDS: Potassium Chloride/H20 10 MEQ/100 ML PIGGYBACK 100 MEQ IV ×5 (06:18→19:04)
[2025-03-26] MEDS: metroNIDAZOLE/NS 500 MG/100 ML PIGGYBACK 100 MG IV ×3 (06:54→19:39)
[2025-03-26] MEDS: Lactated Ringers 1,000 ML 100 ML IVCONT ×2 (08:36→22:36)
--- NOTE | 2025-03-26 10:01 | PHA.MEDREC ---
Pharmacy Consult ? Medication Reconciliation Pharmacy has completed the medication reconciliation. Spoke to patient to confirm medication list.
--- NOTE | 2025-03-26 11:14 | PM.HPGS ---
History of Present Illness History of Present Illness Date of Service: 03/26/25 Chief complaint: abdo pain Narrative: Soniya Nevarez is a 54 year old female who comes in with about a 12 hour history of abdominal pain which was getting worse in her lower abdomen now isolated little more to the right lower quadrant. In the ER she had an elevated white count and CT scan of her abdomen and pelvis revealed thickened distended appendix with probable appendicolith. Patient says she is status post gastric bypass surgery here in about 2018 and she lost lot of weight but has gained back a lot. She is currently on Zepbound but has a BMI of 46. She denies any fevers or chills no unusual diet. Review of Systems Review of Systems: Yes all other systems are reviewed and are negative PMFSH Past Medical History Medical History COVID-19 Hypertension Family History Family History Mother Cancer Hypertension Brother No problems noted. Sister Hypertension Sister No problems noted. Surgical History Surgical History Gastric bypass status for obesity Gastric bypass status for obesity Social History Social History (System 02/18/23 @ 15:04 by Sarita Ray) Alcohol intake: never Patient Tobacco Use Status: Never used Tobacco Smoked in Last 30 Days: No Advance Directives: No Advance Directives Information Provided: Yes Meds Allergies Allergy/AdvReac Type Severity Reaction Status Date / Time Penicillins (PENICILLINS) Allergy Unknown HIVES Verified 03/26/25 01:38 Penicillin Allergy Unknown unknown Uncoded 03/26/25 01:38 Pt states no food allergies Allergy Unknown unknown Uncoded 03/26/25 01:38 Active Medications: Current Medications Acetaminophen (Acetaminophen 325 Mg Tablet) 650 mg PO Q6H PRN PRN Reason: Pain, Mild 1-3,fever,headache Lactated Ringer's (Lr) 1,000 mls @ 100 mls/hr IVCONT .Q10H GEORGETTE Last Admin: 03/26/25 08:36 Dose: 100 mls/hr Metronidazole (Flagyl) 500 mg in 100 mls @ 100 mls/hr IV Q6H GEORGETTE Melatonin (Melatonin 3 Mg Tablet) 6 mg PO BEDTIME PRN PRN Reason: Insomnia Morphine Sulfate (Morphine Sulfate 4 Mg/Ml Cartridge) 4 mg IVPUSH Q4H PRN; Protocol PRN Reason: Pain, Severe (Pain Scale 7-10) Last Admin: 03/26/25 08:35 Dose: 4 mg Ondansetron HCl (Ondansetron Hcl 4 Mg/2 Ml Vial) 4 mg IVPUSH Q8H PRN PRN Reason: Nausea and Vomiting Sodium Chloride (0.9 % Sodium Chloride Flush 3 Ml Syringe) [facility] Medications ?Medication ?Instructions ?Recorded ?Confirmed ?Last Taken ?Type losartan 25 mg tablet 25 mg PO DAILY 02/04/21 03/26/25 03/25/25 History albuterol sulfate 90 mcg/actuation 2 puff inhalation Q4H PRN wheezing 03/26/25 03/26/25 Unknown History aerosol inhaler ergocalciferol (vitamin D2) 1,250 1,250 mcg PO PLUMMER 03/26/25 03/26/25 03/19/25 History mcg (50,000 unit) capsule (Vitamin D2) hydrochlorothiazide 50 mg tablet 50 mg PO DAILY 03/26/25 03/26/25 03/25/25 History levothyroxine 50 mcg tablet 50 mcg PO DAILY@0600 03/26/25 03/26/25 03/25/25 History pantoprazole 20 mg tablet,delayed 20 mg PO DAILY@0630 03/26/25 03/26/25 03/25/25 History release tirzepatide (weight loss) 2.5 2.5 mg subcut PLUMMER 03/26/25 03/26/25 03/19/25 History mg/0.5 mL subcutaneous pen injector (Zepbound) Physical Exam Vital Signs: Vital Signs: Last Vital Signs Temp 98.3 F 03/26/25 07:21 Pulse 84 03/26/25 07:21 Resp 15 03/26/25 08:35 BP 136/71 03/26/25 07:21 Pulse Ox 96 03/26/25 07:21 O2 Del Method Room Air 03/26/25 07:21 BMI result Body Mass Index 45.8 Const: General: cooperative and healthy appearing Nutritional Appearance: obese Resp: Effort & Inspection: normal respiratory effort Auscultation: clear to auscultation bilaterally Cardio: Rate: regular rate Rhythm: regular rhythm GI: Other: Abdomen obese soft tender in the right lower quadrant mild guarding no rebound no peritoneal signs Results Results Labs: Short CBC 03/26/25 Range/Units 03:30 WBC 16.0 H (4.8-10.8) X10*3/uL Hgb 14.7 (12.0-16.0) g/dl Hct 44.2 (37.0-47.0) % Plt Count 270 (160-400) X10*3/uL BMP 03/26/25 03:30 Sodium 139 Potassium 3.0 L Chloride 100 Carbon Dioxide 27 BUN 14 Creatinine 0.58 Calcium 9.6 Liver Function 03/26/25 Range/Units 03:30 Total Bilirubin 0.3 (0.0-1.0) mg/dL Direct Bilirubin 0.2 (0.0-0.5) mg/dL AST 33 H (5-31) U/L ALT 25 (0-31) U/L Alkaline Phosphatase 85 (39-117) U/L Albumin 4.5 (3.5-5.0) g/dL Urine 03/26/25 Range/Units 03:30 Urine Color Yellow Urine Appearance Clear Urine pH 5.5 (5.0-9.0) Ur Specific [place] 1.025 (1.005-1.025) Urine Protein Negative (Neg-Trace) mg/dL Urine Glucose (UA) Negative (Negative) mg/dL Abdomen CT scan report/results: report reviewed and image reviewed CT scan - chest: pending CT scan - pelvis: report reviewed and image reviewed Additional studies: Patient: Soniya Nevarez MR#: [id number] : 1970 Acct:[id number] Age/Sex: 54 / F ADM Date: 03/26/25 Loc: HO.ED Attending Dr: Ordering Physician: Kristina Moore MD Date of Service: 03/26/25 Procedure(s): CT abdomen pelvis wo IV con Accession Number(s): [id number] cc: Kristina Moore MD; Physician,Unknown ~ Report Number: [id number]: Total DLP = 849.00 mGy-cm Reason for Exam: R flank pain ,hx kidney stones ADDENDUMThis document has been electronically signed by: Arminda Lemus MD on 03/26/2025 05:22:32 ADDENDUM: This report was discussed with Teresa Acevedo MD on Mar 26, 2025 05:30:00 EST. This document has been electronically signed by: Geni Neely on 03/26/2025 05:30:50 Addendum Dictated By: Arminda Lemus MD Addendum Signed By: <Electronically signed by Arminda Lemus MD in [place]> 03/26/25531 Addendum Cosigned By: DD/ TD/TT: 03/26/25 CLINICAL HISTORY: R flank pain ,hx kidney stones CT abdomen and pelvis without contrast Comparison: None provided Findings: The lung bases are clear. Distended gallbladder without radiopaque gallstone. Rest of the abdominopelvic viscera are unremarkable [id number] neighboring fat stranding. No hydronephrosis or urinary tract stone. Nonobstructive small bowel loops located to the left of the left colon. Finding is incidental. Distended fluid-filled appendix measuring up to 9 mm in width with a 10 mm mildly dense appendiceal base likely appendicolith and neighboring [id number] fat stranding. No extraluminal air or abscess. No acute fracture. Spinal degenerative changes. Multilevel ossification of the anterior longitudinal ligament and supraspinous ligaments at lower thoracic level. IMPRESSION: Uncomplicated appendicitis with a likely appendicolith. This document has been electronically signed by: Arminda Lemus MD on 03/26/2025 05:22:32 Dictated By: Arminda Lemus MD Signed By: <Electronically signed by Arminda Lemus MD in [place]> 03/26/25521 DD/ 1 TD/TT: 03/26/25521 Family Assistant: Assessment and Plan (1) Acute appendicitis: Status: Acute Plan 54-year-old female morbidly obese status post gastric bypass surgery but now with BMI of 46 with the acute appendicitis. Plan to carry out laparoscopic appendectomy risks and benefits discussed with the patient including but not limited to bleeding infection possible open procedure possible bowel injury possible organ injury. She wishes to proceed Quality Stroke Does the patient have a stroke diagnosis?: No VTE Prior VTE?: No VTE Risk Level:: Surgical - low VTE Device Contraindication: N/A - Device Ordered VTE Drug Contraindication: Treatment Not Indicated Procedures Date of Service Date of Service: 03/26/25
--- NOTE | 2025-03-26 16:36 | HO.ANESPROP2 ---
HPI - Anesthesia Eval Consult details Narrative: For lap. appendectomy. PMFSH Active Problems Active Problems: All Active Problems Hypokalemia (Acute) Acute appendicitis (Acute) Obesity (BMI 35.0-39.9 without comorbidity) (Acute) Vitamin D deficiency (Acute) Gastric bypass status for obesity (Acute) Obesity (Acute) Past Medical History Medical History COVID-19 Hypertension Family History Family History Mother Cancer Hypertension Brother No problems noted. Sister Hypertension Sister No problems noted. Family history of problems with anesthesia: No Surgical History Surgical History Gastric bypass status for obesity Gastric bypass status for obesity History of Problems with Anesthesia: No Social History Social History (System 02/18/23 @ 15:04 by Sarita Ray) Household Members: Spouse Housing: House Do you presently have visiting nurse or other home services: No Alcohol intake: never Patient Tobacco Use Status: Never used Tobacco Second Hand Smoke Exposure: No Meds Allergies Allergy/AdvReac Type Severity Reaction Status Date / Time Penicillins (PENICILLINS) Allergy Unknown HIVES Verified 03/26/25 01:38 Penicillin Allergy Unknown unknown Uncoded 03/26/25 01:38 Pt states no food allergies Allergy Unknown unknown Uncoded 03/26/25 01:38 Active Medications: Current Medications Acetaminophen (Acetaminophen 325 Mg Tablet) 650 mg PO Q6H PRN PRN Reason: Pain, Mild 1-3,fever,headache Lactated Ringer's (Lr) 1,000 mls @ 100 mls/hr IVCONT .Q10H [facility] Last Admin: 03/26/25 08:36 Dose: 100 mls/hr Metronidazole (Flagyl) 500 mg in 100 mls @ 100 mls/hr IV Q6H [facility] Last Infusion: 03/26/25 14:42 Dose: Infused Melatonin (Melatonin 3 Mg Tablet) 6 mg PO BEDTIME PRN PRN Reason: Insomnia Morphine Sulfate (Morphine Sulfate 4 Mg/Ml Cartridge) 4 mg IVPUSH Q4H PRN; Protocol PRN Reason: Pain, Severe (Pain Scale 7-10) Last Admin: 03/26/25 13:37 Dose: 4 mg Ondansetron HCl (Ondansetron Hcl 4 Mg/2 Ml Vial) 4 mg IVPUSH Q8H PRN PRN Reason: Nausea and Vomiting Sodium Chloride (0.9 % Sodium Chloride Flush 3 Ml Syringe) 3 ml IVFLUSH QSHIFT [facility] Last Admin: 03/26/25 15:11 Dose: Not Given Home Medications ?Medication ?Instructions ?Recorded ?Confirmed ?Last Taken ?Type losartan 25 mg tablet 25 mg PO DAILY 02/04/21 03/26/25 03/25/25 History albuterol sulfate 90 mcg/actuation 2 puff inhalation Q4H PRN wheezing 03/26/25 03/26/25 Unknown History aerosol inhaler ergocalciferol (vitamin D2) 1,250 1,250 mcg PO PLUMMER 03/26/25 03/26/25 03/19/25 History mcg (50,000 unit) capsule (Vitamin D2) hydrochlorothiazide 50 mg tablet 50 mg PO DAILY 03/26/25 03/26/25 03/25/25 History levothyroxine 50 mcg tablet 50 mcg PO DAILY@0600 03/26/25 03/26/25 03/25/25 History pantoprazole 20 mg tablet,delayed 20 mg PO DAILY@0630 03/26/25 03/26/25 03/25/25 History release tirzepatide (weight loss) 2.5 2.5 mg subcut PLUMMER 03/26/25 03/26/25 03/19/25 History mg/0.5 mL subcutaneous pen injector (Zepbound) Exam Height,Weight and Vital Signs: Height 4 ft 8 in Weight 99.5 kg Last Vital Signs Temp 97.8 F 03/26/25 15:28 Pulse 97 03/26/25 15:28 Resp 19 03/26/25 15:28 BP 144/73 H 03/26/25 15:28 Pulse Ox 97 03/26/25 15:28 O2 Del Method Room Air 03/26/25 15:28 Pertinent Lab Results Pertinent Lab Results: Laboratory Tests 03/26/25 03/26/25 03:30 05:56 WBC 16.0 H RBC 4.88 Hgb 14.7 Hct 44.2 MCV 90.6 MCH 30.1 MCHC 33.3 RDW 13.6 Plt Count 270 MPV 9.5 Immature Gran % (Auto) 0.3 Neut % (Auto) 89.1 H Lymph % (Auto) 6.0 L Yell % (Auto) 4.2 Eos % (Auto) 0.1 Baso % (Auto) 0.3 Lymph # (Auto) 1.0 L Yell # (Auto) 0.7 Eos # (Auto) 0.0 Baso # (Auto) 0.0 Abs Immat Gran (auto) 0.05 H Absolute Neuts (auto) 14.2 H Absolute Nucleated RBC 0.000 Nucleated RBC % (auto) 0.0 Sodium 139 Potassium 3.0 L Chloride 100 Carbon Dioxide 27 Anion Gap 15 BUN 14 Creatinine 0.58 Estim Creat Clear Calc 101.7 Estimated GFR > 60 Random Glucose 98 Lactic Acid 0.8 Calcium 9.6 Total Bilirubin 0.3 Direct Bilirubin 0.2 AST 33 H ALT 25 Alkaline Phosphatase 85 Total Protein 7.8 Albumin 4.5 Urine Color Yellow Urine Appearance Clear Urine pH 5.5 Ur Specific [place] 1.025 Urine Protein Negative Urine Glucose (UA) Negative Urine Ketones 40 Urine Blood Moderate (2+) H Urine Nitrite Negative Ur Leukocyte Esterase Negative Urine RBC 11-20 H Urine WBC 0-5 Ur Squamous Epith Cells 0-2 Urine Bacteria None Seen Hyaline Casts 0-2 Airway Mallampati Class: III TM Dist: <=3cm Neck ROM: Full Loose/Missing/Broken Teeth: No Heart: ok Lungs: ok Assessment and Plan Assessment Anesthesia Assessment: Anesthesia Plan Discussed and Chart Reviewed Final Anesthetic Review Family History of Problems with Anesthesia: No History of Problems with Anesthesia: No NPO: Yes ASA Class: III Final Preanesthetic Review: No Changes in Pt Med Stat, Meds/Allgs Chart Reviewed, Consent Obtained/Reviewed and Anes Risks/Benef Reviewed Patient Risk: Intermediate Procedure Risk: Intermediate Anesthetic Plan Anesthetic Plan: GA and Agree w/ Assess. and Plan Disposition: Standard PACU
--- NOTE | 2025-03-26 16:57 | PC.NURSE ---
Pt sent to the OR with 4 bags of [address] Hendrickson. will administer in the OR. made aware that pt s K+ of 3.0 had been replaced in the ER this morning with with a total of 40 Meq Iv see MAR
--- NOTE | 2025-03-26 19:09 | P.OP_ITS ---
Operative Note Operative Note Date of Service: 03/26/25 Narrative: Preop diagnosis--acute appendicitis Postop diagnosis--gangrenous appendicitis Procedure--laparoscopic appendectomy Surgeon--Juan Carlos Anesthesia--general endotracheal tube anesthesia Patient is a 54-year-old female who comes in with abdominal pain elevated white count and CT scan showing findings consistent with acute appendicitis. Possible fecalith as well. As a result plan is to carry out laparoscopic appendectomy Findings--gangrenous appendicitis Procedure-- Patient was brought to the operative room under anesthesia guidance was intubated. She had compression stockings placed before induction received pr eoperative antibiotics. Her abdomen was prepped and draped in standard surgical fashion. An infraumbilical incision was created after numbing up the area and dissected down to the anterior abdominal wall fascia. The patient has a small umbilical hernia with some fat tissue and this was isolated and opened up to make it a little bit bigger and 0 Vicryl pursestring suture placed. Camilo trocar introduced and pneumoperitoneum established to 15 mmHg pressure. Two 5 mm ports were then placed under direct visualization 1 in the suprapubic area and 1 in the left lower quadrant. Preoperatively a Gomez catheter had been placed in his patient. Attention was then focused to the right lower quadrant the cecum and the gangrenous appendix was identified and there was irritation to the cecal base and some of the surrounding small bowel. The base however looked good and viable. The appendix was dissected out carefully and in the process of manipulating it it had ruptured with spillage of some fecal type content. The mesentery was taken down with the LigaSure and dissection was carried out to the base of the appendix. The Endo-RUFINO 45 load was fired across the base of the appendix taking some of the cecum to get to good healthy tissue. This was removed in an Endo-Catch bag. The right lower quadrant area was irrigated and hemostasis done with a little bit of the LigaSure again in the mesentery. A 7 MIGUEL drain was left in place of the appendix resting place and the base of the cecum. Ports were all removed. The infraumbilical port was closed with a pursestring in another [id number] suture with those 2 sutures being approximated. Good fascial closure was had. 4-0 Monocryl was used to close the skin edges with Steri-Strips. At the end of the case all sponge instrument n eedle counts were correct estimated blood loss was 5 cc specimens sent was the appendix. Patient was extubated returned stable to recovery room
[2025-03-26] MEDS: 0.9 % Sodium Chloride Flush 3 ML SYRINGE IVFLUSH (20:25)
[2025-03-27] VITALS (8 sets, daily range): BP systolic 112–128; BP diastolic 53–71; PULSE 88–97; RESP 14–19; TEMP 36.2–37.4; O2SAT 93–100
[2025-03-27] MEDS: metroNIDAZOLE/NS 500 MG/100 ML PIGGYBACK 100 MG IV ×4 (00:14→18:03)
[2025-03-27] MEDS: oxyCODONE HCl Immed Release 5 MG TABLET 10 MG PO ×3 (06:37→14:37)
--- NOTE | 2025-03-27 08:14 | P.PNGS_ITS ---
Subjective Subjective Date of Service: 03/27/25 <Javid Newton PA-C - Last Filed: 03/27/25 10:35> 03/27/25 <Emiliana Rangel MD - Last Filed: 03/27/25 10:56> Interval history: doing okay today, struggling with some pain control. Pain in RLQ. Having difficulty with taking a deep breath. Did not eat yesterday, was not hungry after procedure. <Javid Newton PA-C - Last Filed: 03/27/25 10:35> Physical Exam 2 Vital Signs: Vital Signs: Last Vital Signs Temp 97.1 F 03/27/25 07:36 Pulse 88 03/27/25 07:36 Resp 18 03/27/25 07:36 BP 124/61 03/27/25 07:36 Pulse Ox 93 03/27/25 07:36 O2 Del Method Room Air 03/27/25 07:36 BMI result Body Mass Index 49.2 <Javid Newton PA-C - Last Filed: 03/27/25 10:35> Const: General: comfortable and no acute distress <Javid Newton PA-C - Last Filed: 03/27/25 10:35> Orientation/consciousness: patient oriented x3 <Javid Newton PA-C - Last Filed: 03/27/25 10:35> GI: Other: LLQ darrius in place, some strike through on dressing. output serosanguenious. <Javid Newton PA-C - Last Filed: 03/27/25 10:35> Inspection: No distended <Javid Newton PA-C - Last Filed: 03/27/25 10:35> Palpation (GI): Soft to palpation and Tenderness to palpation present (GI) (generalized tenderness throughout, focus in RLQ and incisions.) <Javid Newton PA-C - Last Filed: 03/27/25 10:35> Neuro: General: patient oriented x3 <SARTHAK Maravilla Last Filed: 03/27/25 10:35> Objective Data Active Medications Acetaminophen (Acetaminophen 325 Mg Tablet) 650 mg PO Q6H PRN PRN Reason: Pain, Mild 1-3,fever,headache Albuterol Sulfate (Albuterol Sulfate 90 Mcg 8 Gm Inhaler) 2 puff INHALE Q4H PRN PRN Reason: Wheezing Lactated Ringer's (Lr) 1,000 mls @ 100 mls/hr IVCONT .Q10H [facility] Last Admin: 03/27/25 03:49 Dose: Not Given Documented By: JOANNA Non-Admin Reason: IV Running Metronidazole (Flagyl) 500 mg in 100 mls @ 100 mls/hr IV Q6H [facility] Last Infusion: 03/27/25 07:48 Dose: Infused Documented By: SATNAM Levofloxacin (Levaquin) 500 mg in 100 mls @ 100 mls/hr IV Q24H [facility] Last Infusion: 03/26/25 21:29 Dose: Infused Documented By: JOANNA Levothyroxine Sodium (Levothyroxine Sodium 50 Mcg Tablet) 50 mcg PO DAILY@0600 [facility] Last Admin: 03/27/25 05:44 Dose: 50 mcg Documented By: JOANNA Losartan Potassium (Losartan Potassium 25 Mg Tablet) 25 mg PO DAILY [facility]; Protocol Last Admin: 03/26/25 19:38 Dose: 25 mg Documented By: JOANNA Melatonin (Melatonin 3 Mg Tablet) 6 mg PO BEDTIME PRN PRN Reason: Insomnia Morphine Sulfate (Morphine Sulfate 4 Mg/Ml Cartridge) 4 mg IVPUSH Q4H PRN; Protocol PRN Reason: Pain, Severe (Pain Scale 7-10) Last Admin: 03/27/25 05:50 Dose: 4 mg Documented By: JOANNA Naloxone HCl (Naloxone Hcl 0.4 Mg/Ml Vial) 0.04 mg IVPUSH Q5M PRN PRN Reason: Excessive sedation or RR < 8 Omeprazole (Omeprazole 20 Mg Capsule.Dr) 20 mg PO DAILY@0630 [facility] Last Admin: 03/27/25 05:44 Dose: 20 mg Documented By: JOANNA Ondansetron HCl (Ondansetron Hcl 4 Mg/2 Ml Vial) 4 mg IVPUSH Q8H PRN PRN Reason: Nausea and Vomiting Oxycodone HCl (Oxycodone Hcl Immed Release 5 Mg Tablet) 5 mg PO Q4H PRN PRN Reason: Pain, Mild (Pain Scale 1-3) Oxycodone HCl (Oxycodone Hcl Immed Release 5 Mg Tablet) 10 mg PO Q4H PRN PRN Reason: Pain, Moderate(Pain Scale 4-6) Last Admin: 03/27/25 06:37 Dose: 10 mg Documented By: SATNAM Sodium Chloride (0.9 % Sodium Chloride Flush 3 Ml Syringe) 3 ml IVFLUSH QSHIFT [facility] Last Admin: 03/27/25 06:37 Dose: Not Given Documented By: SATNAM Non-Admin Reason: IV Running <Javid Newton PA-C - Last Filed: 03/27/25 10:35> Labs CBC & Chem 7: 03/26/25 03:30 03/26/25 03:30 <Javid Newton PA-C - Last Filed: 03/27/25 10:35> Microbiology Microbiology Results: Microbiology 03/26/25 05:56 Blood Culture - Preliminary Blood - Venous No growth after 24 hours. 03/26/25 05:56 Blood Culture - Preliminary Blood - Venous No growth after 24 hours. <Javid Newton PA-C - Last Filed: 03/27/25 10:35> Procedures Date of Service Date of Service: 03/27/25 <Javid Newton PA-C - Last Filed: 03/27/25 10:35> 03/27/25 <Emiliana Rangel MD - Last Filed: 03/27/25 10:56> Progress Note: A&P Assessment and plan (1) S/P laparoscopic appendectomy: Status: Acute <Javid Newton PA-C - Last Filed: 03/27/25 10:35> Assessment and Plan: 54 year old female POD1 following s/p laparasopic appendectomy for gangrenous appendix. She is doing okay today, struggling with pain control, located mostly in the RUQ. Also having some pain taking a deep breath especially with using siprometry. Has not tried diet to this point, will try this morning. Denies fevers or chills, denies nausea, vomiting. Denies BM. On exam, tender throughout the abdomen. focus on the RLQ and incision sites. There was some mild strikethrough from drain site. other dressings clean and dry. DARRIUS output overnight 55 cc, appears serosanguenious. No plan for discharge at this time, will see how she tolerates diet, and if her pain control improves, possible DC tomorrow. Recommended ambulation and spiromtery as tolerated Regular diet as tolerated. monitor DARRIUS output daily Continue IV abx <Jvaid Newton PA-C - Last Filed: 03/27/25 10:35> 54 year old female POD1 following s/p laparasopic appendectomy for gangrenous appendix. She is doing okay today, struggling with pain control, located mostly in the RUQ. Also having some pain taking a deep breath especially with using siprometry. Has not tried diet to this point, will try this morning. Denies fevers or chills, denies nausea, vomiting. Denies BM. On exam, tender throughout the abdomen. focus on the RLQ and incision sites. There was some mild strikethrough from drain site. other dressings clean and dry. DARRIUS output overnight 55 cc, appears serosanguenious. No plan for discharge at this time, will see how she tolerates diet, and if her pain control improves, possible DC tomorrow. Recommended ambulation and spiromtery as tolerated Regular diet as tolerated. monitor DARRIUS output daily Continue IV abx pt looks good - seen - needs to be OOB ambulate, advance diet, po pain meds and cont with iv antibx and drain most likely good for dc tomorrow and dc drain with po antibx <Emiliana Rangel MD - Last Filed: 03/27/25 10:56> Time Spent With Patient Time: Total time managing care of this patient today ____ minutes. <Javid Newton PA-C - Last Filed: 03/27/25 10:35> Quality Stroke Does the patient have a stroke diagnosis?: No <Javid Newton PA-C - Last Filed: 03/27/25 10:35> VTE Prior VTE?: No <Javid Newton PA-C - Last Filed: 03/27/25 10:35> VTE Risk Level:: Surgical - low <Javid Newton PA-C - Last Filed: 03/27/25 10:35> VTE Device Contraindication: N/A - Device Ordered <Javid Newton PA-C - Last Filed: 03/27/25 10:35> VTE Drug Contraindication: Treatment Not Indicated <Javid Newton PA-C - Last Filed: 03/27/25 10:35>
--- NOTE | 2025-03-27 08:38 | HO.POSTANES ---
Post Anesthesia Evaluation Post Anesthesia Evaluation Date of Service: 03/27/25 Vital Signs: Vital Signs Temp Pulse Resp BP Pulse Ox O2 Del Method 03/27/25 07:36 97.1 F 88 18 124/61 93 Room Air 03/27/25 03:33 97.2 F 88 16 112/60 97 Room Air 03/26/25 23:24 97.6 F 86 16 115/68 95 Room Air Anesthesia: General Mental Status: Awake Pain Control: Satisfactory Nausea/Vomiting: None Hydration: Adequate Anesthesia-Related Issues: No Anes. Related Issues
--- NOTE | 2025-03-27 10:25 | MHC.CM.PN ---
pt lives with is indepedent and working has a ride dc plan home n/s
[2025-03-27] MEDS: 0.9 % Sodium Chloride Flush 3 ML SYRINGE IVFLUSH (19:45)
[2025-03-27] MEDS: Lactated Ringers 1,000 ML 100 ML IVCONT (19:48)
[2025-03-28] MEDS: metroNIDAZOLE/NS 500 MG/100 ML PIGGYBACK 100 MG IV ×3 (00:05→14:06)
[2025-03-28] MEDS: oxyCODONE HCl Immed Release 5 MG TABLET 10 MG PO (00:08)
[2025-03-28 03:37] VITALS: BP 113/63; PULSE 88; RESP 14; TEMP 36; O2SAT 93
[2025-03-28] MEDS: Lactated Ringers 1,000 ML 100 ML IVCONT (06:33)
[2025-03-28 07:43] VITALS: BP 122/69; PULSE 89; RESP 16; TEMP 36.2; O2SAT 95
[2025-03-28] MEDS: oxyCODONE HCl Immed Release 5 MG TABLET PO (08:02)
--- NOTE | 2025-03-28 08:02 | PM.PNGS ---
Subjective Subjective Date of Service: 03/28/25 <Javid Newton PA-C - Last Filed: 03/28/25 08:07> 03/28/25 <Emiliana Rangel MD - Last Filed: 03/28/25 22:19> Interval history: overall doing much better today, although states she still does not have an appetite, had some small amounts of diet yesterday. Denies nausea, vomiting. Has been ambulating. pain improved <Javid Newton PA-C - Last Filed: 03/28/25 08:07> Physical Exam Vital Signs: Vital Signs: Last Vital Signs Temp 97.1 F 03/28/25 07:43 Pulse 89 03/28/25 07:43 Resp 16 03/28/25 07:43 BP 122/69 03/28/25 07:43 Pulse Ox 95 03/28/25 07:43 O2 Del Method Room Air 03/28/25 07:43 BMI result Body Mass Index 49.2 <Javid Newton PA-C - Last Filed: 03/28/25 08:07> Const: General: comfortable and no acute distress <Javid Newton PA-C - Last Filed: 03/28/25 08:07> Orientation/consciousness: patient oriented x3 <SARTHAK Maravilla Last Filed: 03/28/25 08:07> GI: Other: LLQ darrius in place, some strike through on dressing. output serosanguenious. incision sites clean and dry <Javid Newton PA-C - Last Filed: 03/28/25 08:07> Inspection: No distended <Javid Newton PA-C - Last Filed: 03/28/25 08:07> Palpation (GI): Soft to palpation, Tenderness to palpation present (GI) (incisional) and no guarding <Javid Newton PA-C - Last Filed: 03/28/25 08:07> Neuro: General: patient oriented x3 <SARTHAK Maravilla Last Filed: 03/28/25 08:07> Objective Data Active Medications Acetaminophen (Acetaminophen 325 Mg Tablet) 650 mg PO Q6H PRN PRN Reason: Pain, Mild 1-3,fever,headache Last Admin: 03/27/25 18:07 Dose: 650 mg Documented By: HO.BOURQC Albuterol Sulfate (Albuterol Sulfate 90 Mcg 8 Gm Inhaler) 2 puff INHALE Q4H PRN PRN Reason: Wheezing Lactated Ringer's (Lr) 1,000 mls @ 100 mls/hr IVCONT .Q10H [facility] Last Admin: 03/28/25 06:33 Dose: 100 mls/hr Documented By: JOANNA Metronidazole (Flagyl) 500 mg in 100 mls @ 100 mls/hr IV Q6H [facility] Last Infusion: 03/28/25 07:43 Dose: Infused Documented By: DOBROB Levofloxacin (Levaquin) 500 mg in 100 mls @ 100 mls/hr IV Q24H [facility] Last Infusion: 03/27/25 20:45 Dose: Infused Documented By: JOANNA Levothyroxine Sodium (Levothyroxine Sodium 50 Mcg Tablet) 50 mcg PO DAILY@0600 [facility] Last Admin: 03/28/25 06:33 Dose: 50 mcg Documented By: JOANNA Losartan Potassium (Losartan Potassium 25 Mg Tablet) 25 mg PO DAILY [facility]; Protocol Last Admin: 03/27/25 08:14 Dose: 25 mg Documented By: SATNAM Melatonin (Melatonin 3 Mg Tablet) 6 mg PO BEDTIME PRN PRN Reason: Insomnia Morphine Sulfate (Morphine Sulfate 4 Mg/Ml Cartridge) 4 mg IVPUSH Q4H PRN; Protocol PRN Reason: Pain, Severe (Pain Scale 7-10) Last Admin: 03/27/25 05:50 Dose: 4 mg Documented By: JOANNA Naloxone HCl (Naloxone Hcl 0.4 Mg/Ml Vial) 0.04 mg IVPUSH Q5M PRN PRN Reason: Excessive sedation or RR < 8 Omeprazole (Omeprazole 20 Mg Capsule.Dr) 20 mg PO DAILY@0630 [facility] Last Admin: 03/28/25 06:33 Dose: 20 mg Documented By: JOANNA Ondansetron HCl (Ondansetron Hcl 4 Mg/2 Ml Vial) 4 mg IVPUSH Q8H PRN PRN Reason: Nausea and Vomiting Oxycodone HCl (Oxycodone Hcl Immed Release 5 Mg Tablet) 5 mg PO Q4H PRN PRN Reason: Pain, Mild (Pain Scale 1-3) Oxycodone HCl (Oxycodone Hcl Immed Release 5 Mg Tablet) 10 mg PO Q4H PRN PRN Reason: Pain, Moderate(Pain Scale 4-6) Last Admin: 03/28/25 00:08 Dose: 10 mg Documented By: JOANNA Sodium Chloride (0.9 % Sodium Chloride Flush 3 Ml Syringe) 3 ml IVFLUSH QSHIFT [facility] Last Admin: 03/28/25 07:43 Dose: Not Given Documented By: BUZZ Non-Admin Reason: IV Running <Javid Newton PA-C - Last Filed: 03/28/25 08:07> Labs CBC & Chem 7: 03/28/25 11:08 03/28/25 12:11 <Javid Newton PA-C - Last Filed: 03/28/25 08:07> Microbiology Microbiology Results: Microbiology 03/26/25 05:56 Blood Culture - Preliminary Blood - Venous No growth after 24 hours. 03/26/25 05:56 Blood Culture - Preliminary Blood - Venous No growth after 24 hours. <Javid Newton PA-C - Last Filed: 03/28/25 08:07> Procedures Date of Service Date of Service: 03/28/25 <Javid Newton PA-C - Last Filed: 03/28/25 08:07> 03/28/25 <Emiliana Rangel MD - Last Filed: 03/28/25 22:19> Progress Note: A&P Assessment and plan (1) S/P laparoscopic appendectomy: Status: Acute <Javid Newton PA-C - Last Filed: 03/28/25 08:07> Assessment and Plan: 54 year old female POD1 following s/p laparasopic appendectomy for gangrenous appendix. She is doing better today, pain is more under control. Now ambulating more. continued poor appetite and oral intake, will see how she tolerated breakfast.. Denies fevers or chills, denies nausea, vomiting. Denies BM. On exam, tender around incision sites. There was some mild strikethrough from drain site. other incision sites clean and dry. DARRIUS output overnight scant, appears serosanguenious. Will DC this afternoon prior to DC. Recommended ambulation and spiromtery as tolerated Regular diet as tolerated, will have her eat this morning, if tolertating can be DC Remove DARRIUS prior to DC Continue IV abx, will Dc with oral abx for total of 7 days including days inpt <Javid Newton PA-C - Last Filed: 03/28/25 08:07> 54 year old female POD1 following s/p laparasopic appendectomy for gangrenous appendix. She is doing better today, pain is more under control. Now ambulating more. continued poor appetite and oral intake, will see how she tolerated breakfast.. Denies fevers or chills, denies nausea, vomiting. Denies BM. On exam, tender around incision sites. There was some mild strikethrough from drain site. other incision sites clean and dry. DARRIUS output overnight scant, appears serosanguenious. Will DC this afternoon prior to DC. Recommended ambulation and spiromtery as tolerated Regular diet as tolerated, will have her eat this morning, if tolertating can be DC Remove DARRIUS prior to DC Continue IV abx, will Dc with oral abx for total of 7 days including days inpt looks good doing well- plan to dc home today - dc drain and po antibx for total coverage of 7 days <Emiliana Rangel MD - Last Filed: 03/28/25 22:19> Time Spent With Patient Time: Total time managing care of this patient today ____ minutes. <Javid Newton PA-C - Last Filed: 03/28/25 08:07> Quality Stroke Does the patient have a stroke diagnosis?: No <Javid Newton PA-C - Last Filed: 03/28/25 08:07> VTE Prior VTE?: No <Javid Newton PA-C - Last Filed: 03/28/25 08:07> VTE Risk Level:: Surgical - low <Javid Newton PA-C - Last Filed: 03/28/25 08:07> VTE Device Contraindication: N/A - Device Ordered <Javid Newton PA-C - Last Filed: 03/28/25 08:07> VTE Drug Contraindication: Treatment Not Indicated <Javid Newton PA-C - Last Filed: 03/28/25 08:07>
[2025-03-28 11:15] LABS: Hematocrit 36.2 % (37.0-47.0); Hemoglobin 12.0 g/dl (12.0-16.0); Mean Corpuscular HGB Conc 33.1 g/dl (31.0-35.0); Mean Corpuscular Hemoglobin 30.7 pg (27.0-33.0); Mean Corpuscular Volume 92.6 fL (80.0-98.0); NRBC Abs Auto 0.000 X10*3/uL (0.0-0.012); NRBC Pct Auto 0.0 /100WBC (0.0-0.2); Platelet Count 212 X10*3/uL (160-400); Red Blood Count 3.91 X10*6/uL (4.20-5.50); White Blood Count 13.4 X10*3/uL (4.8-10.8)
[2025-03-28 11:31] VITALS: BP 120/68; PULSE 100; RESP 18; TEMP 36.5; O2SAT 93
[2025-03-28 12:50] LABS: Anion Gap 13 (12-20); Blood Urea Nitrogen 8 mg/dL (9-16); Calcium 8.7 mg/dL (8.4-10.2); Carbon Dioxide 27 mmol/L (22-29); Chloride 103 mmol/L (96-108); Creatinine Clr Calc Pharmacy 110.3; Estimated Glomerular Filt Rate > 60; Potassium 3.4 mmol/L (3.3-5.1); Sodium 140 mmol/L (135-145)
--- NOTE | 2025-03-28 15:47 | MHC.CM.PN ---
pt dcd home self care
--- NOTE | 2025-03-29 08:17 | P.DS_ITS ---
DS: Providers Provider Date of Service: 03/28/25 Date of admission: 03/26/25 08:24 Date of discharge: 03/28/25 Primary care physician: Unknown Physician Admitting clinician: Emiliana Rangel Attending physician on admission: Emiliana Rangel Attending physician on discharge: Emiliana Rangel DS: Diagnosis Discharge Diagnosis (1) S/P laparoscopic appendectomy: Status: Acute DS: Summary Hospital Course Hospital Course: Admission HPI: Soniya Nevarez is a 54 year old female who comes in with about a 12 hour history of abdominal pain which was getting worse in her lower abdomen now isolated little more to the right lower quadrant. In the ER she had an elevated white count and CT scan of her abdomen and pelvis revealed thickened distended appendix with probable appendicolith. Patient says she is status post gastric bypass surgery here in about 2018 and she lost lot of weight but has gained back a lot. She is currently on Zepbound but has a BMI of 46. She denies any fevers or chills no unusual diet. Hospital course: Patient was admitted for management of acute appendicitis with plan to proceed with laparoscopic appendectomy. Was started on IV antibiotics. On 03/26/2025 patient had laparoscopic appendectomy. Preoperative Gomez catheter was placed and subsequently removed after the procedure. Intraoperative finding significant for gangrenous appendix, during dissection there was rupture of the appendix with some spillage of fecal sac contents. Move the of the appendix was achieved and a DARRIUS drain was left in place patient tolerated the procedure well and was transferred to the [facility] floor for continued management. On POD 1 patient is strongly some pain control, minimal appetite. DARRIUS output was minimal abdomen was soft appropriately tender localized around incision sites. Kept overnight until better p.o. intake, pain control. POD to, patient feeling much better, pain well controlled with oral medications. DARRIUS output scant serosang uineous. Abdomen soft benign. Patient felt ready for discharge. Drain was subsequently removed uneventfully in the afternoon, drain site was covered with gauze and a Band-Aid. At the time of discharge abdomen was soft and benign, the patient was in stable condition. She will follow up in 1-2 weeks in the office, has a prescription for pain medications and stool softener. Activity restrictions were reinforced Status at Discharge Functional status at discharge: independent ambulation Overall status at discharge: patient is progressing back to baseline Time Attestation Discharge Coordination Time (in mins): 30 Quality: Safe Use of Opioids Does Pt have an Active Cancer Diagnosis on the Problem List?: No Quality: Stroke Does the patient have a stroke diagnosis?: No Physical Exam Vital Signs: Vital Signs: Last Vital Signs Temp 97.7 F 03/28/25 11:31 Pulse 100 03/28/25 11:31 Resp 18 03/28/25 11:31 BP 120/68 03/28/25 11:31 Pulse Ox 93 03/28/25 11:31 O2 Del Method Room Air 03/28/25 11:31 BMI result Body Mass Index 49.2 Const: General: comfortable and no acute distress Orientation/consciousness: patient oriented x3 GI: Other: LLQ darrius in place, some strike through on dressing. output serosanguenious. incision sites clean and dry Inspection: No distended Palpation (GI): Soft to palpation, Tenderness to palpation present (GI) (incisional) and no guarding Neuro: General: patient oriented x3 DS: Data Data Completed and Pending Completed studies during hospitalization [Text1]: Pending at discharge 03/26/25 18:27 Surgical [PTH] Routine Labs on day of discharge: Laboratory Results - last 24 hr 03/28/25 03/28/25 11:08 12:11 WBC 13.4 H RBC 3.91 L Hgb 12.0 Hct 36.2 L MCV 92.6 MCH 30.7 MCHC 33.1 RDW 14.1 Plt Count 212 MPV 9.8 Absolute Nucleated RBC 0.000 Nucleated RBC % (auto) 0.0 Sodium 140 Potassium 3.4 Chloride 103 Carbon Dioxide 27 Anion Gap 13 BUN 8 L Creatinine 0.56 Estim Creat Clear Calc 110.3 Estimated GFR > 60 Random Glucose 74 Calcium 8.7 D Preliminary micro results at discharge 03/26/25 05:56 Blood Culture - Preliminary Blood - Venous No growth after 48 hours. 03/26/25 05:56 Blood Culture - Preliminary Blood - Venous No growth after 48 hours. Discharge Plan Discharge Anticipated Discharge Date/Time: 03/28/25 15:30 Patient Disposition: Home, Self-Care Discharge Diagnosis: s/p laparoscopic appendectomy Referrals: Physician,Unknown J [Primary Care Provider, Medical] - 1 Week Discharge Medications: New metronidazole 500 mg tablet 500 mg PO Q8H Qty: 12 0RF docusate sodium [Colace] 100 mg capsule 100 mg PO BID Qty: 30 0RF oxycodone 5 mg tablet 5 mg PO Q6H PRN (Reason: pain) Qty: 20 0RF Rx Instructions: Partial Fill upon patient request. levofloxacin 500 mg tablet 500 mg PO DAILY Qty: 4 0RF Continued hydrochlorothiazide 50 mg tablet 50 mg PO DAILY pantoprazole 20 mg tablet,delayed release (DR/EC) 20 mg PO DAILY@0630 levothyroxine 50 mcg tablet 50 mcg PO DAILY@0600 ergocalciferol (vitamin D2) [Vitamin D2] 1,250 mcg (50,000 unit) capsule 1,250 mcg PO PLUMMER albuterol sulfate 90 mcg/actuation HFA aerosol inhaler 2 puff INHALATION Q4H PRN (Reason: wheezing) Zepbound 2.5 mg/0.5 mL pen injector 2.5 mg subcut PLUMMER losartan 25 mg tablet 25 mg PO DAILY Discharge Orders: Discharge Order (Routine); Ordered 03/28/25 Ordered By: Javid Newton Diet: Advance to usual diet Activity on Discharge: No heavy lifting Stand Alone Forms: Patient Portal Discharge page, Work/School Release Print Language: French Activity Restrictions/Additional Instructions: If your incision site is sore, you may apply ice to the area for short periods of time (no more than 20 minutes at a time, followed by 20 minutes off). You were prescribed oxycodone to assist with pain management as needed. You can additionally use OTC ibuprofen or acetaminophen as needed for pain. You can remove the dressings at home, they do not need to be redressed. Steri strips can remain in place and will likely fall on their own or in the shower. No heavy lifting >20 pounds No strenuous activity. Do not use creams, lotion, ointment on the incision sites You will follow up in the office in 2 weeks, you can call the office to schedule the appointment ) Please reach out to the office or be seen at the emergency department if you develop: -Fever >101.5 -Increasing pain or swelling of the area -Increased bleeding from the incision site or the incision begins to separate -If you are concerned for incision site infection such as redness, warmth, discharge. Some yellow/pink tinged discharge is normal -You develop nausea or vomiting Care Plan Goals: return to baseline Health Concerns: post op pain obesity Plan of Treatment: follow up in the office in 2 weeks Assessment: doing well Discharge Date/Time: 03/28/25 15:15
== END 2025-03-28 15:15 | disposition home or self-care (01) | DRG 233 ==
LOC: HO.ED 05:43 → HO.EDOVER 08:29 → HO.S3 14:45
PROVIDERS: Admitting Provider Surgery; Emergency Provider Emergency Medicine; Visit Provider Surgery
PROC: 0DTJ4ZZ Resection of Appendix, Percutaneous Endoscopic Approach (ICD-10-PCS; CPT 44970; principal; 2025-03-26 16:00)
DX: K35.32 Acute appendicitis with perforation, localized peritonitis, and gangrene, without abscess (principal); E66.01 Morbid (severe) obesity due to excess calories; Z68.42 Body mass index [BMI] 45.0-49.9, adult; Z98.84 Bariatric surgery status; Z79.899 Other long term (current) drug therapy
CPT/HCPCS: 36415; 74176; 80048; 80076; 81001; 83605; 85025; 85027; 87040; 88304; 99285; J0131; J1171; J1836; J1956; J2003; J2270; J2405; J2704; J3010; J3480; J7120

== ENCOUNTER → 2025-03-26 02:52 | Outpatient (BNV) | payer BC, SELFPAY | PROVIDERS: Emergency Provider Emergency Medicine; Visit Provider Radiology Diagnostic Radiology | DX: K37 Unspecified appendicitis (principal) | CPT/HCPCS: 74176 ==

== ENCOUNTER → 2025-03-26 08:24 | Outpatient (BNV) | payer BC, SELFPAY | PROVIDERS: Admitting Provider Surgery; Emergency Provider Emergency Medicine; Visit Provider Surgery | DX: K35.891 Other acute appendicitis without perforation, with gangrene (principal) | CPT/HCPCS: 44970; 99024; 99223 ==

== ENCOUNTER 2025-04-04 14:41 | Outpatient (AMB) | payer BC, SELFPAY ==
--- NOTE | 2025-04-04 14:45 | MHC.OFFVIS ---
Vital Signs 04/04/25 14:50 Height 4 ft 10 in Intake Visit Reasons: S/P APPY Intake Note: This patient presents for post-op status post laparoscopic appendectomy. Pt c/o; no complaints pertaining to surgery. Testing And Regulating Technician Required: No Accompanied by: Self / Same As Patient Allergies Penicillins (PENICILLINS) Allergy (Unknown, Verified 04/04/25 14:51) HIVES Penicillin Allergy (Unknown, Uncoded 04/04/25 14:51) unknown Pt states no food allergies Allergy (Unknown, Uncoded 04/04/25 14:51) unknown HPI HPI S/P APPY: Details: doing well overall. Minimal pain. Ambulating throughout the house well. Some pain with bending over. Tolerating diet denies fevers, nausea, vomiting. Denies any drainage from incision sites. PFSH Medical History COVID-19 Hypertension Surgical History History of laparoscopic appendectomy (~03/26/25) Gastric bypass status for obesity Gastric bypass status for obesity Family History Mother Cancer Hypertension Brother No problems noted. Sister Hypertension Sister No problems noted. Social History Household Members: Spouse Housing: House Do you presently have visiting nurse or other home services: No Alcohol intake: never Patient Tobacco Use Status: Never used Tobacco Second Hand Smoke Exposure: No Physical Exam Const General: comfortable and no acute distress Orientation/consciousness: patient oriented x3 Resp Effort & Inspection: normal respiratory effort and able to speak in complete sentences GI Other: Incision sites clean dry intact Palpation (GI): Soft to palpation and nontender Neuro General: patient oriented x3 Assessment & Plan Assessment & Plan (1) S/P laparoscopic appendectomy: Code(s): Z90.49 - Acquired absence of other specified parts of digestive tract Category: Medical Plan 54-year-old female s/p laparoscopic appendectomy on 03/26/[address] Rangel returning to the office for routine follow up. Overall doing well pain seems to be well controlled. She is ambulating well throughout her house. Denying nausea or vomiting. Denying fever chills. On exam abdomen is soft benign, incision sites appear to be healing well, no evidence of infection at this time. Abdomen is otherwise soft and benign. We will continue with activity restrictions no heavy lifting for 2 more weeks. Patient agreeable to this plan. She will follow up in about 2 weeks for re-evaluation. Can call to be seen sooner with any concerns or questions prior to her next appointment. Coding Level of Care Code Global (62566) Diagnoses S/P laparoscopic appendectomy Z90.49
--- OUTSIDE RECORDS SUMMARY | 2025-04-04 18:29 | XMS_ITS | Data Portability ---
Author Organization [facility] [address] Address [address] [place] [address] Assessment No assessment recorded. Plan of Treatment Reminders Order Date Submit Date Provider Last Modified By Organization Details Last Modified Time Details Appointments None recorded. Lab rapid strep group A, throat 2022 023 [email or web address] [facility], [address] [place] [address], [id number], 11:09:14 Referral None recorded. Procedures None recorded. Surgeries None recorded. Imaging None recorded. Medication Orders fluticasone propionate 50 mcg/actuati on nasal spray,suspe nsion 2022 023 [facility], [address] [place], [address], 3 11:09:16 Zithromax Z-[place] 250 mg tablet 2022 023 [facility], [address] [place], [address], 3 11:09:16 Patient TargetsNo targets recorded. Patient Instructions Encounter Date Encounter Id Patient Instructions Last Modified By Organization Details Last Modified Time 08/29/2022 [id number] ear infection (otitis media): care instructions [email or web address] Not available 08/29/2022 11:09:26 Reason for Referral None Reported. Results Created Date Observation Date Name Description Value Unit Range Abnormal Flag Note LastModifiedBy Organization Detail LastModifiedTime 08/30/1908/29/2022 rapid strep group A, throa t Unknown Analyte Normal = Negati ve Not Available [facility] [address] [place], [address], 08/29/2022 10:44:22 08/30/19 23 08/29/2022 rapid strep group A, throa t Unknown Analyte negati ve Not Available [email or web address] [address] [place], [address], 08/29/2022 10:44:22 Result Notes None recorded. Problems Name Problem SNOMED Code Status Onset Date Resolution Date Notes Provider Name and Address Organization Details Recorded Time Asthma 837433277 Active 2022 TEDDY WOLFF null, [place] - [facility] 10:42:21 Hypertensive disorder 59116649 Active 2022 TEDDY WOLFF null, [place] - [facility] 10:42:27 Hypothyroidism 88238260 Active 2022 TEDDY WOLFF null, [place] - [facility] 10:42:37 Gastroesophage al reflux disease 825767442 Active 2022 TEDDY WOLFF null, PA - [...] Name and Address Organization Details Recorded Time 374550 Product containin g penicilli n (product) medicatio n hives Not available Not available 08/29/2022 [id number] SNOMED TEDDY WOLFF null, PA - [...] propionate 50 mcg/actuati on nasal spray,suspe nsion [place] 1 spray every day by intranasa l [...] [Score] - Reported Respiratory rate Oxygen saturation Heart rate Body temperature Systolic And Diastolic Provider Name and Address Organization Details Last Updated DateTime 3 149.86 cm 41.8 kg/m2 38864.6 2 g 6 18 /min 100 % 70 /min 98.1 [degF] 114/78 mm[Hg] TEDDY WOLFF PA - [facility] 3 10:45:07 Social History Question Answer Notes LastModified by [employer] Details LastModified Time Tobacco Smoking Status Former Smoker TEDDY WOLFF yobani, [place] - [facility] 08/29/2022 10:44:17 When Did You Quit Smoking? 16+yearssinc elastcigaret te [email or web address] Information not available 08/29/2022 Have You Recently Traveled Abroad? No [email or web address] Information not available 08/29/2022 Sex: Unknown Functional Status Question Answer Note LastModified by [employer] Details LastModified Time Do you use any illicit or recreational drugs? No Information not available 08/29/2022 Do you or have you ever used any other forms of tobacco or nicotine? No [email or web address] Information not available 08/29/2022 What is your level of alcohol consumption? Occasional [email or web address] Information not available 08/29/2022 Mental Status None recorded. Family History Relationship Description Onset Age of this Age Resolved Age Notes LastModified by Organization Details LastModified Time Father No current problems or disability [email or web address] Not available 08/29 10:43:46 Mother No current problems or disability [email or web address] Not available 08/29 10:43:46 Medical History No medical history recorded. Gynecological HistoryNo gynecological history recorded. Obstetrics History GPAL:G 0 P 0 0 0 0 Past Encounters Encounter ID Performer Location Encounter Start Date Encounter Closed Date Diagnosis/Indication Diagnosis SNOMED-CT Code Diagnosis ICD10 Code Diagnosis IMO Codes Diagnosis Note [id number] [facility] [address] [place] [address] 07/27/2020 08:40:26 07/27/2020 09:31:06 [id number] Steve Portillo DO [facility] [address] [place] [address] 08/29/2022 09:29:49 08/29/2022 11:17:47 Acute left otitis media [id number] H66.92 Given Hx and Sx and PE [...] ID Duong Member ID Guarantor Name 08/29/[address] [place] [address] [id number] Soniya Nevarez [id number] Soniya Nevarez Notes Date Note Type Note [...] dizzinessNo recent travelNo known sick contacts Steve Portillo, DO [address] [place], [address], [place] - [facility] 08/29/2022 11:09:43 OBGyn Episode No OBEpisode recorded.
--- OUTSIDE RECORDS SUMMARY | 2025-04-04 18:29 | XMS_ITS | Clinical Summary ---
Author Organization [address] Address [address] [place] [address] Phone Care Team Providers Care Driller Portable Name Role Phone Gretel Rees MD Primary Care Provider [phone] Allergies Active Allergy Reactions Criticality Noted Date [...] bedtime. 90 tablet 1 03/20/20 25 Active losartan (COZAAR) 25 mg tablet Take 1 tablet (25 mg total) by mouth at bedtime. 90 tablet 12/20/19 25 025 Discontinued Active Problems Problem Noted Date Diagnosed Date Morbid obesity (CMS/HCC V24, CMS/[facility] V28) 2023 Increased PTH level 07/15/2022 Overview [...] 11:15 AM EDT Office Visit Adult Medicine [address] [phone] Eloise Ceron PA Gastroesophageal reflux disease, unspecified whether esophagitis present (Primary Dx); Essential hypertension, benign; Osteopenia, unspecified location; Vitamin D deficiency; Morbid obesity (CMS/[facility] V24, [facility] V28); Hypothyroidism due to acquired atrophy of [...] care for your loved ones. For example, child nutrition director or elderly care for an older adult? [...] Care Team (Late st Contact Info) Description 04/05/2025 10:30 AM EST Office Visit Adult Medicine [address] [phone] Gretel Rees MD [address] [place] [address] 06/08/2025 9:40 AM EST Consult Gastroenterology - [address] [phone] Sil Kaur, DEZ [address] [address] 07/18/2025 8:15 AM EDT Office Visit Adult Medicine [facility] [address] [place], [place] [phone] Gretel Rees MD [address] [place], [place] Health Maintenance Due Date Last Done Comments Hepatitis B Vaccines (1 of 3 - 19+ 3-dose series) 1988 RSV Immunization Adult Patients (1 - Risk 50-74 years 1-dose series) 2019 HIV Screening 04/19/2022 Cervical Cancer Screening: Pap Smear 06/21/2023 06/21/2020, 06/21/2020, 09/08/2017 COVID-19 Vaccine (2024- season) 2025 02/05/2024, 02/25/2023, 11/01/2021, Additional history [...] disorders Routine general medical examination at a [facility] LIPID PANEL WITH REFLEX TO [...] mg/dL LAB CHEMISTRY METHOD 02/27/2025 11:08 AM T [facility] Triglycerides 63 0 - 150 mg/dL LAB CHEMISTRY METHOD 02/27/2025 11:08 AM T [facility] HDL 73 >=40 mg/dL LAB CHEMISTRY METHOD 02/27/2025 11:08 AM [facility] LDL Calculated 81 0 - 100 mg/dL LAB CHEMISTRY METHOD 02/27/2025 11:08 AM [facility] Comment:Estimated LDL Calcul ated using equation: Total cholesterol - HDL cholesterol - (Triglycerides/5) VLDL Cholesterol Chuy 12.6 mg/dL LAB CHEMISTRY METHOD 02/27/2025 11:08 AM [facility] Non HDL Chol. (LDL+VLDL) 94 <145 mg/dL LAB CHEMISTRY METHOD 02/27/2025 11:08 AM [facility] Chol/HDL Ratio 2.3 0.0 - 4.4 LAB CHEMISTRY METHOD 02/27/2025 11:08 AM [facility] Blood Venous blood specimen / Unknown Venipuncture / Unknown 02/27/2025 9:02 AM EDT 02/27/2025 9:58 AM EDT Aaliyah CHATMAN LAB BLOOD ORDERABLES Final Resul t [facility] [address] [place] [address], * (ABNORMAL) CBC auto differential (02/27/2025 9:02 AM EDT) WBC 10.0 4.8 - 10.8 K/mcL LAB HEMETOLOGY METHOD 02/27/2025 10:41 AM [facility] RBC 4.60 3.80 - 4.80 M/mcL LAB HEMETOLOGY METHOD 02/27/2025 10:41 AM [facility] Hemoglobin 13.9 11.5 - 16.0 g/dL LAB HEMETOLOGY METHOD 02/27/2025 10:41 AM [facility] Hematocrit 42.3 35.0 - 47.0 % LAB HEMETOLOGY METHOD 02/27/2025 10:41 AM [facility] MCV 92.0 79.0 - 98.0 FL LAB HEMETOLOGY METHOD 02/27/2025 10:41 AM [facility] MCH 30.2 27.0 - 32.0 pcg LAB HEMETOLOGY METHOD 02/27/2025 10:41 AM [facility] MCHC 32.9 32.0 - 37.0 g/dL LAB HEMETOLOGY METHOD 02/27/2025 10:41 AM [facility] RDW 14.0 11.0 - 15.0 % LAB HEMETOLOGY METHOD 02/27/2025 10:41 AM [facility] Platelets 283 130 - 400 K/[facility] LAB HEMETOLOGY METHOD 02/27/2025 10:41 AM [facility] MPV 10.7 7.0 - 11.0 FL LAB HEMETOLOGY METHOD 02/27/2025 10:41 AM [facility] NRBC 0.0 <1.0 % LAB HEMETOLOGY METHOD 02/27/2025 10:41 AM [facility] NRBC Absolute 0.00 <0.10 K/[facility] LAB HEMETOLOGY METHOD 02/27/2025 10:41 AM [facility] Neutrophils Relative 71.5 % LAB HEMETOLOGY METHOD 02/27/2025 10:41 AM [facility] Lymphocytes Relative 18.9 % LAB HEMETOLOGY METHOD 02/27/2025 10:41 AM [facility] Monocytes Relative 8.3 % LAB HEMETOLOGY METHOD 02/27/2025 10:41 AM [facility] Eosinophils Relative 0.5 % LAB HEMETOLOGY METHOD 02/27/2025 10:41 AM [facility] Basophils Relative 0.4 % LAB HEMETOLOGY METHOD 02/27/2025 10:41 AM [facility] Immature Granulocytes Relative 0.4 % LAB HEMETOLOGY METHOD 02/27/2025 10:41 AM [facility] Neutrophils Absolute 7.11(H) 1.50 - 7.00 K/[facility] LAB HEMETOLOGY METHOD 02/27/2025 10:41 AM [facility] Lymphocytes Absolute 1.88 1.00 - 5.00 K/[facility] LAB HEMETOLOGY METHOD 02/27/2025 10:41 AM EDT [facility] Monocytes Absolute 0.83 0.20 - 1.00 K/mcL LAB HEMETOLOGY METHOD 02/27/2025 10:41 AM EDT [facility] Eosinophils Absolute 0.05 0.00 - 0.50 K/mcL LAB HEMETOLOGY METHOD 02/27/2025 10:41 AM EDT [facility] Basophils Absolute 0.04 0.00 - 0.20 K/mcL LAB HEMETOLOGY METHOD 02/27/2025 10:41 AM EDT [facility] Immature Granulocytes Absolute 0.04(H) 0.00 - 0.03 K/mcL LAB HEMETOLOGY METHOD 02/27/2025 10:41 AM EDT [facility] Blood Venous blood specimen / Unknown Venipuncture / Unknown 02/27/2025 9:02 AM EDT 02/27/2025 9:59 AM EDT Aaliyah [employer] [place] LAB BLOOD ORDERABLES Final Resul t [facility] [address] [place] [address], * Insulin, total (02/27/2025 9:02 AM EDT) Insulin 17.2 3.0 - 25.0 mcIU/mL LAB CHEMISTRY METHOD 02/27/2025 9:02 PM EDT [facility] Blood Venous blood specimen / Unknown Venipuncture / Unknown 02/27/2025 9:02 AM EDT 02/27/2025 9:58 AM EDT Narrative [facility] - 02/27/2025 9:02 PM EDT Insulin reference range based on fasting status. Insulin values vary in non-fasting individuals. [employer] LAB BLOOD ORDERABLES Final Resul t [facility] [address] [place] [address], * Vitamin D 25 hydroxy (02/27/2025 9:02 AM EDT) Pathologist [facility] Vit D, 25-Hydroxy 44.6 30.0 - 80.0 ng/mL LAB CHEMISTRY METHOD 02/27/2025 12:43 PM EDT [facility] Blood Venous blood specimen / Unknown Venipuncture / Unknown 02/27/2025 9:02 AM EDT 02/27/2025 9:58 AM EDT us Aaliyah CHATMAN LAB BLOOD ORDERABLES Final Resul t Performing Organization Address [facility] de Phone Number [facility] [address] [place] [address], * Thyroid stimulating hormone (02/27/2025 9:02 AM EDT) [facility] TSH 2.22 0.40 - 4.00 mcIU/mL LAB CHEMISTRY METHOD 02/27/2025 9:02 PM EDT [facility] Blood Venous blood specimen / Unknown Venipuncture / Unknown 02/27/2025 9:02 AM EDT 02/27/2025 9:58 AM EDT us Aaliyah CHATMAN LAB BLOOD ORDERABLES Final Resul t Performing Organization Address [facility] Co de Phone Number [facility] [address] [place] [address], [place] [phone] * Hemoglobin A1c (02/27/2025 9:02 AM EDT) Pathologist [facility] Hemoglobin A1C 5.4 <6.5 % LAB CHEMISTRY METHOD 02/27/2025 11:53 AM EDT [facility] Mean Bld Glu Estim. 108 mg/dL LAB CHEMISTRY METHOD 02/27/2025 11:53 AM EDT [facility] Blood Venous blood specimen / Unknown Venipuncture / Unknown 02/27/2025 9:02 AM EDT 02/27/2025 9:59 AM EDT Aaliyah CHATMAN LAB BLOOD ORDERABLES Final Resul t [facility] [address] [place] [address], [place] [phone] * Vitamin B12 (02/27/2025 9:02 AM EDT) Pathologist [facility] Vitamin B-12 469 250 - 900 pcg/mL LAB CHEMISTRY METHOD 02/27/2025 11:08 AM EDT [facility] Blood Venous blood specimen / Unknown Venipuncture / Unknown 02/27/2025 9:02 AM EDT 02/27/2025 9:58 AM EDT Aaliyah CHATMAN LAB BLOOD ORDERABLES Final Resul t Performing Organization Address City/[facility]/ZIP Co de Phone Number [facility] [address] [place] [address], [place] [phone] * Comprehensive metabolic panel (02/27/2025 9:02 AM EDT) Pathologist [facility] Sodium 136 133 - 145 mmol/L LAB CHEMISTRY METHOD 02/27/2025 11:08 AM EDT [facility] Potassium 3.7 3.5 - 5.5 mmol/L LAB CHEMISTRY METHOD 02/27/2025 11:08 AM EDT [facility] Chloride 99 96 - 110 mmol/L LAB CHEMISTRY METHOD 02/27/2025 11:08 AM EDT [facility] CO2 30 21 - 32 mmol/L LAB CHEMISTRY METHOD 02/27/2025 11:08 AM EDT [facility] Anion Gap 7 3 - 11 LAB CHEMISTRY METHOD 02/27/2025 11:08 AM [facility] Glucose 84 70 - 100 mg/dL LAB CHEMISTRY METHOD 02/27/2025 11:08 AM [facility] BUN 17 5 - 25 mg/dL LAB CHEMISTRY METHOD 02/27/2025 11:08 AM [facility] Creatinine 0.68 0.50 - 1.10 mg/dL LAB CHEMISTRY METHOD 02/27/2025 11:08 AM [facility] eGFR 103 >=60 mL/min/1. 73m2 LAB CHEMISTRY METHOD 02/27/2025 11:08 AM [facility] Comment:Calculation based on the Chronic Kidney Disease Epidemiology Collaboration (CKD-EPI) equation refit without adjustment for race. BUN/Creatinine Ratio 25.0 LAB CHEMISTRY METHOD 02/27/2025 11:08 AM [facility] Calcium 9.3 8.5 - 10.5 mg/dL LAB CHEMISTRY METHOD 02/27/2025 11:08 AM [facility] AST (SGOT) 42 10 - 42 unit/L LAB CHEMISTRY METHOD 02/27/2025 11:08 AM [facility] ALT (SGPT) 45 10 - 60 unit/L LAB CHEMISTRY METHOD 02/27/2025 11:08 AM [facility] Alkaline Phosphatase 107 42 - 121 unit/L LAB CHEMISTRY METHOD 02/27/2025 11:08 AM [facility] Total Protein 7.2 6.0 - 8.0 g/dL LAB CHEMISTRY METHOD 02/27/2025 11:08 AM [facility] Albumin 3.7 3.2 - 5.0 g/dL LAB CHEMISTRY METHOD 02/27/2025 11:08 AM [facility] Total Bilirubin 0.3 0.0 - 1.4 mg/dL LAB CHEMISTRY METHOD 02/27/2025 11:08 AM EDT [facility] Blood Venous blood specimen / Unknown Venipuncture / Unknown 02/27/2025 9:02 AM EDT 02/27/2025 9:58 AM EDT Aaliyah CHATMAN LAB BLOOD ORDERABLES Final Resul t [facility] [address] [place] [address], [place] [phone] * MG Mammo Digital Screening w Jose bilat (06/10/2024 4:05 PM EST) Anatomical Region Laterality Modality Breast Bilateral Mammography 06/11/2024 3:13 PM EST Impressions 06/11/2024 3:15 PM EST No mammographic evidence for malignancy. BI-RADS CATEGORY: 1 - NEGATIVE RECOMMENDATION: Screening bilateral mammogram is recommended in 1 year. Mammo Location: [facility], [address] [place] [address], [address], . -------- FINAL REPORT -------- Dictated By: Alison Tidwell Dictated Date: 06/11/2024 15:13 ET Assigned Physician: Alison Tidwell Reviewed and Electronically Signed By: Alison Tidwell Signed Date: 06/11/2024 15:15 ET Workstation ID: [id number] Transcribed By: Self Edit Transcribed Date: 06/11/2024 [...] is recommended in 1 year. Mammo Location: [facility], [address] [place] [address], [address], . -------- FINAL REPORT -------- Dictated By: Alison Tidwell Dictated Date: 06/11/2024 15:13 ET Assigned Physician: Alison Tidwell Reviewed and Electronically Signed By: Alison Tidwell Signed Date: 06/11/2024 15:15 ET Workstation ID: [id number] Transcribed By: Self Edit Transcribed Date: 06/11/2024 15:13 ET Gretel Rees MD IM BI PROCEDURES Final Result * Hepatitis C Screening (09/10/2022) Hepatitis C Screening Abstracted Historical Provider HEALTH MAINTENANCE Final Result * Colonoscopy (08/06/2020) Colonoscopy Abstracted. No Interpretation Anatomical Region Laterality Modality Other Historical Provider HEALTH MAINTENANCE Final Result * Pap smear (06/21/2020) 06/21/2020 Narrative HISTORICAL TESTING LAB RESULTING AGENCY - 06/27/2020 3:20 PM EST [id number] THINPREP PAP, IMAGED: NEGATIVE FOR SQUAMOUS INTRAEPITHELIAL LESION AND MALIGNANCY . CLUE CELLS ARE PRESENT. ABUNDANT PARTIALLY OBSCURING ACUTE INFLAMMATORY CELLS ARE PRESENT. CHIDI NAVARRETE(ASCP) (CASE ELECTRONICALLY SIGNED 06 27 2020) ADEQUACY: [...] Most Recently Relevant to Health Maintenance Insurance [facility] Care Teams Driller Portable Relationship Specialty Start Date End Date Gretel Rees MD [address] [place], [place] PCP - General Internal Medicine 11/08/20
--- OUTSIDE RECORDS SUMMARY | 2025-04-04 18:29 | XMS_ITS | Patient Health Record ---
Author Organization [facility] [address] Address [address] [place] [address] Care Team Providers Care Supervisor Industrial Garment Name Role Phone Juan MiguelJerry wagnerTasneem Primary Care Provider Aaliyah Narvaez Unavailable [phone] Allergies Allergen (clinical drug ingredient) Drug/Non Drug Allergy documented on EMR Reaction Allergy Type Onset Date Status Penicillin hives Drug Allergy Active Results Component Value Reference Range Flag Notes CBC WITH AUTO DIFFERENTIAL Reviewed date:02/27/2025 12:46:51 [...] Immature Granulocytes Absolute 0.04 0.00-0.03 K/mcL H VITAMIN B12 Reviewed date:02/27/2025 12:45:06 PM Interpretation: Performing Lab: Notes/Report: Vitamin B-12 469 250-900 pcg/mL HEMOGLOBIN A1C Reviewed date:02/27/2025 12:43:00 PM Interpretation: Performing Lab: Notes/Report: Hemoglobin A1C 5.4 <6.5 % Mean Bld Glu Estim. [address] METABOLIC PANE L Reviewed date:02/27/2025 12:45:35 [...] g/dL Total Bilirubin 0.3 0.0-1.4 mg/dL VITAMIN D 25 HYDROXY Reviewed date:02/27/2025 12:54:14 PM Interpretation: Performing Lab: Notes/Report: Vit D, 25-Hydroxy 44.6 30.0-80.0 ng/mL LIPID PANEL WITH REFLEX TO D IRECT LDL Reviewed date:02/27/2025 12:44:49 PM Interpretation: Performing Lab: Notes/Report: Cholesterol 167 0-200 mg/dL Triglycerides 63 0-150 mg/dL HDL 73 >=40 mg/dL LDL Calculated 81 0-100 mg/dL Estimated LDL Calculated using equation: Total cholesterol - HDL cholesterol - (Triglycerides/5) VLDL Cholesterol Chuy 12.6 Non HDL Chol. (LDL+VLDL) 94 <145 mg/dL Chol/HDL Ratio 2.3 0.0-4.4 INSULIN, TOTAL Reviewed date:02/28/2025 07:59:49 AM Interpretation: Performing Lab: Notes/Report: Insulin reference range based on fasting status. ?Insulin values vary in non- fasting individuals. Insulin 17.2 3.0-25.0 mcIU/mL THYROID STIMULATING HORMONE Reviewed date:02/28/2025 07:59:40 AM Interpretation: Performing Lab: Notes/Report: TSH 2.22 0.40-4.00 mcIU/mL Reason For Referral No Information Medications Medication SIG (Take, Route, Frequency, Duration) Notes Start Date End Date Status Zepbound 2.5 MG/0.5ML Soluti on Auto-injector 0.5 ML Subcutaneous once weekly; Duration: 30 days 02/27/2025 Active Vitamin D (Ergocalciferol) 1.25 MG (90891 UT) Capsule Oral; Duration: 56 Days Active [...] W/U Status Risk Notes Problem Morbid obesity (783068104) Morbid obesity (E66.01) Active confirmed Problem Vitamin D deficiency (38744552) Vitamin D deficiency (E55.9) Active confirmed Problem Body mass index 40+ - morbidly obese (295679902) BMI 40.0-44.9, adult (Z68.41) Active confirmed Problem Hypothyroidism (56045577) Hypothyroidism (acquired) (E03.9) Active confirmed Problem Asthma (698601403) Asthma (J45.909) Active conf irmed Problem History of gastric bypass (085511626) History of gastric bypass (Z98.84) Active confirmed Problem Gastroesophageal reflux disease (684639459) GERD (gastroesophageal reflux disease) (K21.9) Active confirmed Problem Depression (494476903) Depression (F32.A) Active confirmed Problem Obesity (196326983) Obesity (E66.9) Active conf irmed Problem Hypertension (66457124) Hypertension (I10) Active confirmed Vital Signs Heart Rate 74 /min 02/27/2025 Respiratory Rate 16 /min 02/27/2025 Oximetry 97 % 02/27/2025 Blood pressure diastolic 84 mm Hg 02/27/2025 Height 58 in 02/27/2025 Blood pressure systolic 132 mm Hg 02/27/2025 Weight 211 lbs 02/27/2025 BMI 44.09 kg/m2 02/27/2025 Encounters Encounter Location Date Provider [facility] [phone] [id number] 02/27/2025 Aaliyah Narvaez Morbid obesity E66.0 1 ; BMI 40.0-44.9, adult Z68.41 ; Hypertension I10 ; GERD (gastroesophageal reflux disease) K21.9 ; Asthma J45.909 ; Depression F32.A ; Encounter for nutritional counseling Z71.3 ; History of gastric bypass Z98.84 ; Hypothyroidism (acquired) E03.9 and Vitamin D deficiency E55.9 [facility] [address] 02/27/2025 Aaliyah Svrcek [facility] [address] 02/28/2025 Tasneem Normoyle Assessments Encounter Date [...] track activity level. Consider using apps like [employer], [employer], lose it, stick as needed for self-monitoring and weight management. Consider group exercises. Consider hiring a system trainer. Regular exercise is short to sustainable health [...] counseling and psychiatry and Dr Taylor at [facility]. We would like to cover regular topics [...] Dictation was accomplished with the use of [employer] voice recognition software, prone to medical misidentifications [...] track activity level. Consider using apps like [employer], [employer], lose it, stick as needed for self-monitoring and weight management. Consider group exercises. Consider hiring a system trainer. Regular exercise is short to sustainable health [...] counseling and psychiatry and Dr Taylor at [facility]. We would like to cover regular topics [...] Dictation was accomplished with the use of [employer] voice recognition software, prone to medical misidentifications [...] track activity level. Consider using apps like [employer], [employer], lose it, stick as needed for self-monitoring and weight management. Consider group exercises. Consider hiring a system trainer. Regular exercise is short to sustainable health [...] counseling and psychiatry and Dr Taylor at [facility]. We would like to cover regular topics [...] Dictation was accomplished with the use of [employer] voice recognition software, prone to medical misidentifications [...] track activity level. Consider using apps like [employer], [employer], lose it, stick as needed for self-monitoring and weight management. Consider group exercises. Consider hiring a system trainer. Regular exercise is short to sustainable health [...] counseling and psychiatry and Dr Taylor at [facility]. We would like to cover regular topics [...] Dictation was accomplished with the use of [employer] voice recognition software, prone to medical misidentifications [...] track activity level. Consider using apps like [employer], [employer], lose it, stick as needed for self-monitoring and weight management. Consider group exercises. Consider hiring a system trainer. Regular exercise is short to sustainable health [...] counseling and psychiatry and Dr Taylor at [facility]. We would like to cover regular topics [...] Dictation was accomplished with the use of [employer] voice recognition software, prone to medical misidentifications [...] books called The Food Rules by Emmanuel Fleiciano and Eat Fat Get Lean by Dr [...] track activity level. Consider using apps like [employer], [employer]fitnesspal, lose it, stick as needed for self-monitoring and weight management. Consider group exercises. Consider hiring a system trainer. Regular exercise is short to sustainable health [...] counseling and psychiatry and Dr Taylor at [facility]. We would like to cover regular topics [...] Dictation was accomplished with the use of [employer] voice recognition software, prone to medical misidentifications [...] track activity level. Consider using apps like [employer], [employer], lose it, stick as needed for self-monitoring and weight management. Consider group exercises. Consider hiring a system trainer. Regular exercise is short to sustainable health [...] counseling and psychiatry and Dr Taylor at [facility]. We would like to cover regular topics [...] Dictation was accomplished with the use of [employer] voice recognition software, prone to medical misidentifications [...] track activity level. Consider using apps like [employer], [employer], lose it, stick as needed for self-monitoring and weight management. Consider group exercises. Consider hiring a system trainer. Regular exercise is short to sustainable health [...] counseling and psychiatry and Dr Taylor at [facility]. We would like to cover regular topics [...] Dictation was accomplished with the use of [employer] voice recognition software, prone to medical misidentifications [...] track activity level. Consider using apps like [employer], [employer], lose it, stick as needed for self-monitoring and weight management. Consider group exercises. Consider hiring a system trainer. Regular exercise is short to sustainable health [...] counseling and psychiatry and Dr Taylor at [facility]. We would like to cover regular topics [...] Dictation was accomplished with the use of [employer] voice recognition software, prone to medical misidentifications [...] reading books called The Food Rules by Emmanule Feliciano and Eat Fat Get Lean by [...] track activity level. Consider using apps like [employer], [employer], lose it, stick as needed for self-monitoring and weight management. Consider group exercises. Consider hiring a system trainer. Regular exercise is short to sustainable health [...] counseling and psychiatry and Dr Taylor at [facility]. We would like to cover regular topics [...] Dictation was accomplished with the use of [employer] voice recognition software, prone to medical misidentifications [...] Next Appt Details Provider Name:Aaliyah Narvaez, 1 06/11/2024 11:30:00 AM, [address] [facility] [place] [address], [place], [address], Insurance Providers Payer Name Payer Address Payer Phone Subscriber Number Group Number Insured Name Patient Relationship to Insured Coverage Start Date Coverage End Date [facility] [address] [place] [address] [id number] Soniya Nevarez Self - patient is the insured Medical (General) History Medical History History ICD Code high blood pressure thyroid disease anxiety kidney stones Gout asthma Arthritis depression Surgical History Surgery Date(Month/Year) Cervical surgery 1991 gastric bypass 07/02/2017
--- OUTSIDE RECORDS SUMMARY | 2025-04-04 18:29 | XMS_ITS ---
Author Organization [address] Address [address] [place] [address] Phone Care Team Providers Care Mold Checker Name Role Phone Gretel Rees MD Primary Care Provider [phone] Transitional Care Management Status:Ongoing (Active) Start date:03/28/2025 Enrollment date:03/28/2025 Enrollment reason:Identified using hospital discharge data Case Team Name Relationship Phone Rohith Gómez LPN(Responsible Staff) [employer] Continued Care and Services Coordination
== END 2025-04-04 15:30 | disposition home or self-care (01) ==
LOC: HO.HGS 14:42
PROVIDERS: PCP Internal Medicine
DX: Z90.49 Acquired absence of other specified parts of digestive tract (principal)
CPT/HCPCS: 99024

== ENCOUNTER 2025-04-18 09:35 | Outpatient (AMB) | payer BC, SELFPAY ==
[2025-04-18 09:38] VITALS: BP 134/77; PULSE 76; RESP 16; TEMP 36.2; O2SAT 100; BMI 41.7
--- NOTE | 2025-04-18 09:38 | A.OFFVIS_ITS ---
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 States she returned to work yesterday and felt pretty sore after the right-sided abdomen. She has no other concerns. Denies nausea vomiting PFSH Medical History COVID-19 Hypertension Surgical History History of laparoscopic appendectomy (~03/26/25) Gastric bypass status for obesity Gastric bypass status for obesity Family History Mother Cancer Hypertension Brother No problems noted. Sister Hypertension Sister No problems noted. Social History Household Members: Spouse Housing: House Do you presently have visiting nurse or other home services: No Alcohol intake: never Patient Tobacco Use Status: Never used Tobacco Second Hand Smoke Exposure: No Review of Systems Const Denies daytime sleepiness, Denies difficulty sleeping, Denies snoring, Denies stops breathing during sleep and Denies weakness Card Denies chest pain, Denies rapid heart rate, Denies irregular heart rhythm, Denies claudication, Denies leg edema, Reports lightheadedness, Denies palpitations, Denies dyspnea, Denies dyspnea on exertion, Denies orthopnea, Denies paroxysmal nocturnal dyspnea and Denies slow heart rate Resp Denies cough, Denies dyspnea, Denies dyspnea on exertion and Denies snoring GI Reports no additional complaints, Denies hematochezia, Denies change in stool character and Denies dyspepsia Musc Denies abnormal gait, Denies muscle weakness and Denies numbness Neuro Denies abnormal gait, Denies numbness and Denies weakness Endo Denies palpitations Physical Exam Vital Signs: Last Vital Signs Temp 97.2 F 04/18/25 09:38 Pulse 76 04/18/25 09:38 Resp 16 04/18/25 09:38 BP 134/77 04/18/25 09:38 Pulse Ox 100 04/18/25 09:38 Oxygen Delivery Method Room Air 04/18/25 09:38 BMI result Body Mass Index 41.7 Const General: comfortable and no acute distress Orientation/consciousness: patient oriented x3 GI Other: Incision sites well healed no erythema, and no fluid collection Inspection: No distended Palpation (GI): Soft to palpation and nontender Neuro General: patient oriented x3 Assessment & Plan Assessment & Plan (1) S/P laparoscopic appendectomy: Code(s): Z90.49 - Acquired absence of other specified parts of digestive tract Category: Surgical Plan 54-year-old female s/p laparoscopic appendectomy on 03/26/[address] Rangel returning to the office for routine one-month follow up. She feels well, she returned to work yesterday and had some right-sided pain, otherwise no concerns. Diet bowel function at baseline. Denying nausea or vomiting. Denying fever chills. On exam abdomen is soft benign, incision sites appear to be healing well, no evidence of infection at this time. Abdomen is otherwise soft and benign. Reassured her that abdominal pain likely is musculoskeletal in nature and should improve over the next 1-2 months. At this point can not lift activity restrictions patient okay to return to activity, recommended starting slow and working way back up towards her baseline level activity. She is agreeable to this plan. No longer requiring follow-up, can follow up as needed with any concerns in the future. She has [facility] paperwork, she will meet with our immigration services officer Nancy to assist with this. Coding Level of Care Code Global (68946) Diagnoses S/P laparoscopic appendectomy Z90.49
== END 2025-04-18 10:10 | disposition home or self-care (01) ==
LOC: HO.HGS 09:36
PROVIDERS: PCP Internal Medicine
DX: Z90.49 Acquired absence of other specified parts of digestive tract (principal)
CPT/HCPCS: 99024